=== PATIENT | female | born 1955 | race Caucasian/White ===

== ENCOUNTER 2017-08-20 13:20 | Inpatient (IN) | payer BC ==
[~2017-08-20] VITALS: Ht 182.9 cm; Wt 103.8 kg
[2017-08-20 13:38] VITALS: BP 119/71
--- OUTSIDE RECORDS SUMMARY | 2017-08-20 13:44 | XMS REPORT ---
Author Author ERICA HOWE [facility] eClinicalWorks Address Unknown Phone Unavailable Care Team Providers Care Chainstitch Felled Seam Operator Name Role Phone ERICA HOWE Unavailable Allergies No Known Allergies Problems Problem Type Condition Code Onset Dates Condition Status Problem Unspecified thrombocytopenia 287.5 Active Problem Essential hypertension, benign 401.1 Active Problem Screening for thyroid disorder V77.0 Active Problem Acute pharyngitis 462 Active Problem Need for prophylactic vaccination and inoculation, Influenza V04.81 Active Medications No Known Medications Results No Known Results Summary Purpose eClinicalWorks Submission
--- OUTSIDE RECORDS SUMMARY | 2017-08-20 13:44 | XMS REPORT ---
Author Author NORMA NUNEZ [facility] Address [address] [place] [address] Care Team Providers Care Project Manager Retail Name Role Phone NORMA NUNEZ Unavailable PROBLEMS Type Condition ICD9-CM Code [id number] Code Onset Dates Condition Status SNOMED Code Problem Screening for thyroid disorder V77.0 Active 820639524 Problem Cervicalgia M54.2 Active 93485774 Problem Essential hypertension I10 Active 22707187 Problem Acute pharyngitis 462 Active 061311581 Problem Need for prophylactic vaccination and inoculation, Influenza V04.81 Active 527321251 Problem Unspecified thrombocytopenia 287.5 Active 457729253 Problem Essential hypertension, benign 401.1 Active 2124912 ALLERGIES No Information SOCIAL HISTORY Never Assessed PLAN OF CARE VITAL SIGNS MEDICATIONS Medication Instructions Dosage Frequency Start Date End Date Duration Status Benicar HCT 40-25 MG Orally Once a day, must come to appt for further refills. 1 tablet 0 days Active RESULTS No Results PROCEDURES No Known procedures IMMUNIZATIONS No Known Immunizations MEDICAL (GENERAL) HISTORY Type Description Date Medical History Hypertension Medical History Chronic nerve pain Medical History chronic pain--back Surgical History section 1988 Surgical History replaced to disk in neck 2014 Surgical History left knee replacement 11/2015
--- OUTSIDE RECORDS SUMMARY | 2017-08-20 13:44 | XMS REPORT ---
Author Author NORMA NUNEZ Organization eClinicalWorks Address Unknown Phone Unavailable Care Team Providers Care Auto Refinisher Name Role Phone NORMA NUNEZ CP Unavailable Allergies, Adverse Reactions, Alerts Substance Reaction Event Type Prednisone felt weak and achy Drug Allergy Hydrocodone-Acetaminophen nausea Drug Allergy Codeine nausea Drug Allergy Problems Problem Type Condition Code Onset Dates Condition Status Assessment Encounter for immunization Z23 Active Problem Screening for thyroid disorder V77.0 Active Problem Unspecified thrombocytopenia 287.5 Active Problem Essential hypertension I10 Active Problem Need for prophylactic vaccination and inoculation, Influenza V04.81 Active Assessment Essential hypertension I10 Active Problem Essential hypertension, benign 401.1 Active Problem Acute pharyngitis 462 Active Medications Medication Code System Code Instructions Start Date End Date Status Dosage Ultram [facility] [address]-57 50 MG Orally every 6 hrs PRN May 20, 2015 1 tablet as needed Benicar HCT [facility] [address]-61 40-25 MG Orally Once a day 1 tablet Gabapentin [facility] [address]-58 300 MG Orally 2 times a day November 03, 2015 1 capsule Procedures Procedure Coding System Code Date FLUARIX QUAD P-FREE 3 AND UP .50 2015 CPT-4 61504 Mar 14, 2016 SINGLE IMMUNIZATION ADMIN CPT-4 04066 Mar 14, 2016 Office Visit, Est Pt., Level 3 CPT-4 98116 Mar 14, 2016 Vital Signs Date/Time: Mar 14, 2016 Cardiac Monitoring Heart Rate 70 bpm Weight 213.0 lbs Height 72 in BMI 28.88 Index Blood Pressure Diastolic 68 mmHg Blood Pressure Systolic 128 mmHg Results No Known Results Immunizations Vaccine Administration Date FLUARIX QUAD P-FREE 3 AND UP .50 2015Mar 14, 2016 Summary Purpose eClinicalWorks Submission
--- OUTSIDE RECORDS SUMMARY | 2017-08-20 13:44 | XMS REPORT ---
Author Author ERICA HOWE Organization eClinicalWorks Address Unknown Phone Unavailable Care Team Providers Care Dye Beck Reel Operator Name Role Phone ERICA HOWE CP Unavailable Allergies No Known Allergies Problems Problem Type Condition ICD-9 Code Onset Dates Condition Status Problem Unspecified thrombocytopenia 287.5 Active Problem Essential hypertension, benign 401.1 Active Problem Screening for thyroid disorder V77.0 Active Assessment Cervical stenosis of spinal canal 723.0 Active Problem Acute pharyngitis 462 Active Problem Need for prophylactic vaccination and inoculation, Influenza V04.81 Active Medications Medication Code System Code Instructions Start Date End Date Status Dosage Oxycodone-Acetaminophen [facility] [address]-62 7.5-325 MG Orally every 6 hrs as needed for pain. MUST LAST 30 DAYS Jan 01, 2015 1 tablet as needed Results No Known Results Summary Purpose eClinicalWorks Submission
--- OUTSIDE RECORDS SUMMARY | 2017-08-20 13:44 | XMS REPORT ---
Author Author ERICA HOWE Organization eClinicalWorks Address Unknown Phone Unavailable Care Team Providers Care Jig Grinder Set Up Operator Name Role Phone ERICA HOWE Unavailable [...] Start Date End Date Status Dosage Oxycodone-Acetaminophen [facility] [address]-99 7.5-325 MG Orally every 6 hrs as needed for pain. MUST LAST 30 DAYS Jan 01, 2015 1 tablet as needed Results No Known Results Summary Purpose eClinicalWorks Submission
--- OUTSIDE RECORDS SUMMARY | 2017-08-20 13:44 | XMS REPORT ---
Author Author ERICA HOWE [facility] eClinicalWorks Address Unknown Phone Unavailable Care Team Providers Care Art Director Name Role Phone ERICA HOWE Unavailable Allergies [...] Instructions Start Date End Date Status Dosage Zofran [facility] [address]-36 4 MG Orally Once a day Dec 23, 2014 1 tablet Results No Known Results Summary Purpose eClinicalWorks Submission
--- OUTSIDE RECORDS SUMMARY | 2017-08-20 13:44 | XMS REPORT ---
Author Author NORMA NUNEZ [facility] Address [address] [place] [address] Care Team Providers Care Behavior Management Specialist Name Role Phone NUNEZNORMA Tucker Unavailable PROBLEMS Type Condition ICD9-CM Code [id number] Code Onset Dates Condition Status SNOMED Code Assessment Cervicalgia M54.2 Jan, Active 60974332 Problem Screening for thyroid disorder V77.0 Active 010037841 Problem Unspecified thrombocytopenia 287.5 Active 180068936 Problem Need for prophylactic vaccination and inoculation, Influenza V04.81 Active 224507247 Assessment Essential hypertension I10 Jan, Active 60842189 Problem Essential hypertension, benign 401.1 Active 2118955 Problem Acute pharyngitis 462 Active 884467663 ALLERGIES Substance Reaction Event Type Date Status Prednisone felt weak and achy Drug Allergy Jan, Active Hydrocodone-Acetaminophen nausea Drug Allergy Jan, Active Codeine nausea Drug Allergy Jan, Active SOCIAL HISTORY No smoking Hx information available PLAN OF CARE VITAL SIGNS Height 72 in 2016-01-31 Weight 217.0 lbs 2016-01-31 Heart Rate 72 bpm 2016-01-31 Respiratory Rate 16 2016-01-31 BMI 29.43 kg/m2 2016-01-31 Blood pressure systolic 100 mmHg 2016-01-31 Blood pressure diastolic 70 mmHg 2016-01-31 MEDICATIONS Medication Instructions Dosage Frequency Start Date End Date Duration Status Ultram 50 MG Orally every 6 hrs PRN 1 tablet as needed Apr, Active Gabapentin 300 MG Orally 2 times a day 1 capsule 12h 15 Oct, 2015 Active RESULTS No Results PROCEDURES Procedure Date Ordered Related Diagnosis Body Site Office Visit, Est Pt., Level 3 Jan 31, 2016 IMMUNIZATIONS No Known Immunizations
--- OUTSIDE RECORDS SUMMARY | 2017-08-20 13:44 | XMS REPORT ---
Author Author ERICA HOWE [facility] eClinicalWorks Address Unknown Phone Unavailable Care Team Providers Care Public Relations Professional Name Role Phone ERICA HOWE Unavailable Allergies [...] Instructions Start Date End Date Status Dosage Benicar HCT [facility] [address]-39 40-25 MG Orally Once a day 1 tablet Zofran [facility] [address]-19 4 MG Orally Once a day Dec 23, 2014 1 tablet Results No Known Results Summary Purpose eClinicalWorks Submission
--- OUTSIDE RECORDS SUMMARY | 2017-08-20 13:45 | XMS REPORT | Continuity of Care Document ---
Author Author [facility] Address Unknown Phone Unavailable Allergies Active Description Code Type Severity Reaction Onset Reported/Identified Relationship to Patient Clinical Status Yes Codeine Drug Allergy N/A N/A 11/04/2012 Yes prednisone Drug Allergy N/A N/A 11/04/2012 Medications There is no data. Problems Date Dx Coded Attending Type Code Diagnosis Diagnosed By 11/04/2012 401.1 HYPERTENSION, BENIGN ESSENTIAL 11/04/2012 401.1 HYPERTENSION, BENIGN ESSENTIAL 11/04/2012 GOODMAN DO YVETTE K 401.1 HYPERTENSION, BENIGN ESSENTIAL 11/04/2012 GOODMAN DO YVETTE K 401.1 HYPERTENSION, BENIGN ESSENTIAL 11/04/2012 GOODMAN DO YVETTE K 401.1 HYPERTENSION, BENIGN ESSENTIAL 11/04/2012 GOODMAN DO YVETTE K 401.1 HYPERTENSION, BENIGN ESSENTIAL 04/09/2013 GOODMAN DO, YVETTE K 462 ACUTE PHARYNGITIS 04/09/2013 GOODMAN DO, YVETTE K V04.81 FLU SHOT 04/09/2013 GOODMAN DO, YVETTE K 462 ACUTE PHARYNGITIS 04/09/2013 GOODMAN DO, YVETTE K V04.81 FLU SHOT 04/09/2013 GOODMAN DO, YVETTE K 462 ACUTE PHARYNGITIS 04/09/2013 GOODMAN DO, YVETTE K V04.81 FLU SHOT 04/09/2013 GOODMAN DO, YVETTE K 462 ACUTE PHARYNGITIS 04/09/2013 GOODMAN DO, YVETTE K V04.81 FLU SHOT 11/19/2013 GOODMAN DO, YVETTE K V77.0 SCREENING FOR THYROID DISORDERS 11/19/2013 GOODMAN DO, YVETTE K V77.0 SCREENING FOR THYROID DISORDERS 11/19/2013 GOODMAN DO, YVETTE K V77.0 SCREENING FOR THYROID DISORDERS 12/01/2013 GOODMAN DO YVETTE K 287.5 THROMBOCYTOPENIA UNSPECIFIED 12/01/2013 GOODMAN DO, YVETTE K 287.5 THROMBOCYTOPENIA UNSPECIFIED 11/19/2015 DARCY MORAN DO, Ot D69.3 IMMUNE THROMBOCYTOPENIC PURPURA 11/24/2015 NEFTALI GLOVER MD Ot I10 ESSENTIAL (PRIMARY) HYPERTENSION 12/10/2015 DARCY MORAN DO Ot D69.3 IMMUNE THROMBOCYTOPENIC PURPURA 12/17/2015 NEFTALI GLOVER MD Ot I10 ESSENTIAL (PRIMARY) HYPERTENSION Procedures Code [place] [address] ROUTINE VENIPUNCTURE 11/19/2013 68302 CMP 11/19/2013 08251 LIPID PANEL 11/19/2013 87060 TSH 11/19/2013 33932 CBC 11/19/2013 03755 A1C (IN-HOUSE) 12/01/2013 Results There is no data. Encounters ACCT No. Visit Date/Time Discharge Status Pt. Type Provider Facility Loc./Unit Complaint [id number] 08/14/2014 15:58:00 08/14/2014 23:59:59 CLS Outpatient YVETTE GOODMAN DO [id number] 12/01/2013 10:07:00 12/01/2013 23:59:59 CLS Outpatient YVETTE GOODMAN DO [id number] 11/19/2013 08:16:00 11/19/2013 23:59:59 CLS Outpatient YVETTE GOODMAN DO [id number] 04/09/2013 15:49:00 04/09/2013 23:59:59 CLS Outpatient YVETTE GOODMAN DO [id number] 01/10/2013 09:07:00 Document Registration [id number] 11/04/2012 14:31:00 Document Registration [id number] 11/23/2015 12:09:00 11/23/2015 23:59:59 CLS Outpatient NEFTALI GLOVER MD [facility] [id number] 11/18/2015 16:35:00 11/18/2015 23:59:59 CLS Outpatient DARCY MORAN DO [facility] [id number] 05/07/2017 15:00:00 05/07/2017 23:59:59 CLS Outpatient ERICA HOWE APRN [facility]
--- OUTSIDE RECORDS SUMMARY | 2017-08-20 13:45 | XMS REPORT ---
Author Author ERICA HOWE Organization eClinicalWorks Address Unknown Phone Unavailable Care Team Providers Care Inpatient Pharmacist Name Role Phone ERICA HOWE Unavailable Allergies [...] Start Date End Date Status Dosage Zofran [facility] [address]-54 4 MG Orally Once a day Dec 23, 2014 1 tablet Results No Known Results Summary Purpose eClinicalWorks Submission
--- OUTSIDE RECORDS SUMMARY | 2017-08-20 13:45 | XMS REPORT ---
Author Author ERICA HOWE Organization eClinicalWorks Address Unknown Phone Unavailable Care Team Providers Care Ell Tutor Name Role Phone ERICA HOWE Unavailable Allergies [...] Start Date End Date Status Dosage Zofran [facility] [address]-43 4 MG Orally Once a day Jun 25, 2015 1 tablet Results No Known Results Summary Purpose eClinicalWorks Submission
--- OUTSIDE RECORDS SUMMARY | 2017-08-20 13:45 | XMS REPORT ---
Author Author NORMA NUNEZ Organization eClinicalWorks Address Unknown Phone Unavailable Care Team Providers Care Dean Of Admissions Name Role Phone NORMA NUNEZ CP Unavailable Allergies No Known Allergies Problems [...]
--- OUTSIDE RECORDS SUMMARY | 2017-08-20 13:45 | XMS REPORT ---
Author Author NORMA NUNEZ [facility] Address [address] [place] [address] Care Team Providers Care Programmer Or Analyst Name Role Phone NUNEZ, NORMA Unavailable PROBLEMS Type Condition ICD9-CM Code LZN26-EU Code Onset Dates Condition Status SNOMED Code Problem Need for prophylactic vaccination and inoculation, Influenza V04.81 Active 651752680 Problem Cervicalgia M54.2 Active 42760668 Problem Essential hypertension I10 Active 85530289 Problem Essential hypertension, benign 401.1 Active 9266440 Problem Acute pharyngitis 462 Active 462771764 Problem Screening for thyroid disorder V77.0 Active 003744526 Problem Unspecified thrombocytopenia 287.5 Active 045454751 ALLERGIES Substance Reaction Event Type Date Status Prednisone felt weak and achy Drug Allergy Apr, Active Hydrocodone-Acetaminophen nausea Drug Allergy Apr, Active Codeine nausea Drug Allergy Apr, Active SOCIAL HISTORY No smoking Hx information available PLAN OF CARE Activity Details Follow Up 3 Months Reason:htn VITAL SIGNS Height 72 in 2016-05-16 Weight 212.4 lbs 2016-05-16 Temperature 96.8 degrees Fahrenheit 2016-05-16 Heart Rate 80 bpm 2016-05-16 Respiratory Rate 18 2016-05-16 BMI 28.80 kg/m2 2016-05-16 Blood pressure systolic 110 mmHg 2016-05-16 Blood pressure diastolic 60 mmHg 2016-05-16 MEDICATIONS Medication Instructions Dosage Frequency Start Date End Date Duration Status Ultram 50 MG Orally every 6 hrs PRN 1 tablet as needed Apr, Active Gabapentin 300 MG Orally Once a day 1 capsule 24h 15 Oct, 2015 Active Benicar HCT 40-25 MG Orally Once a day 1 tablet 24h Active RESULTS No Results PROCEDURES Procedure Date Ordered Related Diagnosis Body Site Office Visit, Est Pt., Level 3 May 16, 2016 IMMUNIZATIONS No Known Immunizations
--- OUTSIDE RECORDS SUMMARY | 2017-08-20 13:45 | XMS REPORT ---
Author Author ERICA HOWE Organization eClinicalWorks Address Unknown Phone Unavailable Care Team Providers Care Assistant Food Service Manager Name Role Phone ERICA HOWE CP Unavailable Allergies, Adverse Reactions, Alerts Substance Reaction Event Type Prednisone felt weak and achy Drug Allergy Hydrocodone-Acetaminophen nausea Drug Allergy Codeine nausea Drug Allergy Problems Problem Type Condition Code Onset Dates Condition Status Problem Unspecified thrombocytopenia 287.5 Active Problem Essential hypertension, benign 401.1 Active Problem Screening for thyroid disorder V77.0 Active Assessment Fall, initial encounter W19.XXXA Active Assessment Midline thoracic back pain M54.6 Active Problem Acute pharyngitis 462 Active Problem Need for prophylactic vaccination and inoculation, Influenza V04.81 Active Medications Medication Code System Code Instructions Start Date End Date Status Dosage Diazepam [facility] [address]-92 5 MG Orally Twice a day 1 tablet as needed Benicar HCT [facility] [address]-44 40-25 MG Orally Once a day 1 tablet Amitriptyline HCl [facility] [address]-94 50 MG Orally Once a day May 20, 2015 1 tablet (1/2 tab x7 days then 1 full tab daily) Ultram [facility] [address]-70 50 MG Orally every 6 hrs PRN May 20, 2015 1 tablet as needed Procedures Procedure Coding System Code Date Office Visit, Est Pt., Level 3 CPT-4 78227 May 20, 2015 Vital Signs Date/Time: May 20, 2015 Temperature 97.6 F Weight 247.8 lbs Height 72 in BMI 33.60 Index Blood Pressure Diastolic 70 mmHg Blood Pressure Systolic 124 mmHg Cardiac Monitoring Heart Rate 80 bpm Results No Known Results Summary Purpose eClinicalWorks Submission
--- OUTSIDE RECORDS SUMMARY | 2017-08-20 13:45 | XMS REPORT ---
Author Author NORMA NUNEZ [facility] Address [address] [place] [address] Care Team Providers Care Import Coordination And Production Head Name Role Phone NORMA NUNEZ Unavailable PROBLEMS Type Condition ICD9-CM Code ESG24-SI Code Onset Dates Condition Status SNOMED Code Problem Screening for thyroid disorder V77.0 Active 827406222 Problem Cervicalgia M54.2 Active 38517331 Problem Essential hypertension I10 Active 72589097 Problem Acute pharyngitis 462 Active 895893623 Problem Need for prophylactic vaccination and inoculation, Influenza V04.81 Active 355117275 Problem Unspecified thrombocytopenia 287.5 Active 208295079 Problem Essential hypertension, benign 401.1 Active 2002435 ALLERGIES Substance Reaction Event Type Date Status Prednisone felt weak and achy Drug Allergy Oct, Active Hydrocodone-Acetaminophen nausea Drug Allergy Oct, Active Codeine nausea Drug Allergy Oct, Active ENCOUNTERS Encounter Location Date Diagnosis [address] [id number] Apr, Essential hypertension I10 and Encounter for immunization Z23 [place] [id number] [place] [address] [id number] Oct, Essential hypertension I10 ; Screening for thyroid disorder Z13.29 ; Screening for lipid disorders Z13.220 and Screening for heart disease Z13.6 [facility] [id number] [place] [address] [id number] September, [facility] [id number] [place] [address] [id number] May, Essential hypertension I10 [address] [id number] Apr, Essential hypertension I10 and Cervicalgia M54.2 [place] [id number] [place] [address] [id number] Feb, Essential hypertension I10 and Encounter for immunization Z23 [facility] [id number] [phone] Feb, [facility] [id number] [place] [address] [id number] Jan, Essential hypertension I10 and Cervicalgia M54.2 [facility] [id number] [place] [address] [id number] Oct, [facility] [id number] [place] [address] [id number] Oct, [facility] [id number] [place] [address] [id number] Aug, [facility] [id number] [place] [address] [id number] Jul, Essential (primary) hypertension I10 [facility] [id number] [place] [address] [id number] Jun, [facility] [id number] [place] [address] [id number] Apr, Fall, initial encounter W19.XXXA and Midline thoracic back pain M54.6 [facility] [id number] [place] [address] [phone] Apr, [facility] [id number] [place] [address] [id number] Mar, [facility] [id number] [place] [address] [id number] Mar, [facility] [address] [id number] [phone] Jan, [facility] [id number] [place] [address] [phone] Jan, Muscle spasm of back 724.8 [facility] [id number] [place] [address] [id number] Jan, [facility] [id number] [place] [address] [id number] Jan, Cervical stenosis of spinal canal 723.0 [facility] [id number] [place] [address] [id number] Dec, Cervical stenosis of spinal canal 723.0 [place] [id number] [phone] Dec, Cervical stenosis of spinal canal 723.0 [facility] [id number] [place] [address] [phone] Dec, [facility] [id number] [place] [address] [id number] Dec, Cervical stenosis of spinal canal 723.0 [facility] [id number] [place] [address] [id number] Dec, [facility] [id number] [place] [address] [id number] Nov, Bulging discs 722.10 and Edema 782.3 [facility] [id number] [place] [phone] Nov, [facility] [id number] [place] [address] [phone] Oct, Bilateral arm numbness and tingling while sleeping 782.0 [facility] [id number] [phone] September, [facility] [id number] [place] [phone] September, [facility] [id number] [place] [address] [id number] September, Essential hypertension, benign 401.1 and Radiculopathy affecting upper extremity 723.4 [facility] [id number] [place] [phone] Aug, [facility] [id number] [place] [phone] Aug, [facility] [id number] [place] [address] [id number] Jul, [facility] [id number] [place] [phone] Jul, [facility] [id number] [phone] Nov, [facility] [address] [id number], [place] [address] Nov, [facility] [address] [facility] [id number] [phone] Nov, [facility] [address] [facility] [id number], [place] [address] Nov, [facility] [address] [facility] [id number], [place] [address] Nov, [facility] [address] [facility] [id number], [place] [address] Nov, [facility] [address] [facility] [id number] [phone] Nov, [facility] [address] [id number] [phone] Mar, [facility] [address], [place] [address] Mar, [facility] [address] [id number] [phone] Dec, [facility] [address] [id number] [phone] Oct, IMMUNIZATIONS No Known Immunizations SOCIAL HISTORY Never Assessed REASON FOR VISIT Blood Pressure f/u [facility] PLAN OF CARE Activity Details Follow Up 6 Months Reason:htn VITAL SIGNS Height 72 in 2016-10-30 Weight 220 lbs 2016-10-30 Temperature 97.8 degrees Fahrenheit 2016-10-30 Heart Rate 78 bpm 2016-10-30 Respiratory Rate 16 2016-10-30 BMI 29.83 kg/m2 2016-10-30 Blood pressure systolic 128 mmHg 2016-10-30 Blood pressure diastolic 72 mmHg 2016-10-30 MEDICATIONS Medication Instructions Dosage Frequency Start Date End Date Duration Status Benicar HCT 40-25 MG Orally Once a day, must come to appt for further refills. 1 tablet 0 days Active RESULTS No Results PROCEDURES No Known procedures INSTRUCTIONS MEDICATIONS ADMINISTERED No Known Medications MEDICAL (GENERAL) HISTORY Type Description Date Medical History Hypertension Medical History Chronic nerve pain Medical History chronic pain--back Surgical History section 1988 Surgical History replaced to disk in neck 2014 Surgical History left knee replacement 11/2015
--- OUTSIDE RECORDS SUMMARY | 2017-08-20 13:45 | XMS REPORT ---
Author Author NORMA NUNEZ [facility] Address [address] [place] [address] Care Team Providers Care Earth Science Technical Officer Name Role Phone NORMA NUNEZ Unavailable PROBLEMS Type Condition ICD9-CM Code [id number]-SC Code Onset Dates Condition Status SNOMED Code Problem Need for prophylactic vaccination and inoculation, Influenza V04.81 Active 030910204 Problem Cervicalgia M54.2 Active 12441100 Problem Essential hypertension I10 Active 67529276 Problem Essential hypertension, benign 401.1 Active 4083454 Problem Acute pharyngitis 462 Active 584167866 Problem Screening for thyroid disorder V77.0 Active 159176824 Problem Unspecified thrombocytopenia 287.5 Active [id number] ALLERGIES No Known Allergies SOCIAL HISTORY No smoking Hx information available PLAN OF CARE VITAL SIGNS MEDICATIONS Medication Instructions Dosage Frequency Start Date End Date Duration Status Losartan Potassium-HCTZ 100-25 MG Orally Once a day 1 tablet 24h May, 0 days Active RESULTS No Results PROCEDURES No Known procedures IMMUNIZATIONS No Known Immunizations
--- OUTSIDE RECORDS SUMMARY | 2017-08-20 13:45 | XMS REPORT ---
Author Author ERICA HOWE Organization [employer] Address Unknown Phone Unavailable Care Team Providers Care Metrologist Name Role Phone ERICA HOWE Unavailable Allergies [...] Date End Date Status Dosage Benicar HCT [facility] [id number] 40-25 MG Orally Once a day 1 tablet Results No Known Results Summary Purpose [employer] Submission
[2017-08-20] MEDS ORDERED: IBUP-30 PO (14:32)
[2017-08-20] MEDS ORDERED: OLME1TAB24 PO (14:32)
--- NOTE | 2017-08-20 15:29 | History & Physical-Hospitalist ---
History of Present Illness HPI/Chief Complaint Pt is a 61yoCF with a PMH of HTN and tobacco abuse who presented to the ER with CC of SOB and cough. She states her symptoms started on 07/23/17 when she was seen at Urgent Care and diagnosed with pneumonia. She was treated with Levaquin and felt better but shortly after stopping them started to feel worse again. She seen again at that Urgent care and given steroids and Azithromycin and felt better for almost two weeks and then started to get sick again. She states it started with a runny nose and then she started coughing and getting SOB. She complains of low chest/upper abdomen left sided chest pain with her cough. She denies any fevers or chills. She was found to be hypoxic with ambulation on presentation. Source: patient Exam Limitations: no limitations Date Seen 08/20/17 Time Seen by Provider: 15:05 Attending Physician Sophia Mcfarlane MD PCP No,Local Physician Referring Physician Date of Admission Aug 20, 2017 at 1:40 pm Home Medications & Allergies Home Medications Reviewed patient Home Medication Reconciliation performed by pharmacy medication reconciliations health record technician and/or nursing. Patients Allergies have been reviewed. Allergies Allergies Coded Allergies codeine (Verified Allergy, Unknown, 08/20/17) "I get real dizzy and pass out" Past Cbzovfb-Oareds-Rougsc Hx Past Med/Social Hx: Reviewed and Corrections made Patient Social History Marrital Status: Alcohol Use: Denies Use Recreational Drug Use: No Smoking Status: Current Everyday Smoker Cigaretts per day: 15 Type Used: Cigarettes Physical Abuse Screen: No Sexual Abuse: No Recent Foreign Travel: No Contact w/other who traveled: No Recent Hopitalizations: No Recent Infectious Disease Expo: No Seasonal Allergies Seasonal Allergies: No Past Medical History Surgeries: Orthopedic Respiratory: Pneumonia Currently Using CPAP: No Currently Using BIPAP: No Cardiac: Hypertension Musculoskeletal: Arthritis History of Blood Disorders: Yes (thrombocytopenia) Adverse Reaction to Blood Henry: No Family History Reviewed Nursing Family Hx No Pertinent Family Hx Review of Systems Constitutional: No chills, No fever EENTM: nose congestion Respiratory: see HPI, cough, short of breath Cardiovascular: see HPI, No edema, No palpitations Gastrointestinal: No abdominal pain, No constipation, No diarrhea, No nausea, No vomiting Genitourinary: No dysuria, No frequency Musculoskeletal: No joint pain, No muscle pain Skin: No lesions, No rash Psychiatric/Neurological: Denies Headache, Denies Numbness, Denies Tingling All Other Systems Reviewed Negative Unless Noted: Yes (Negative excepted noted.) Physical Exam Physical Exam Vital Signs Vital Signs - First Documented 08/20/17 14:00 O2 Delivery Room Air Capillary Refill : General Appearance: No Apparent Distress, WD/WN HEENT: PERRL/EOMI, Moist Mucous Membranes Neck: Non Tender, Supple Respiratory: No Accessory Muscle Use, No Respiratory Distress, Decreased Breath Sounds (left side) Cardiovascular: Regular Rate, Rhythm, No Murmur Gastrointestinal: Normal Bowel Sounds, Non Tender, Soft Extremity: Normal Capillary Refill, No Calf Tenderness, No Pedal Edema Neurologic/Psychiatric: Alert, Oriented x3, Normal Mood/Affect Skin: Normal Color, Warm/Dry Results Results/Procedures Labs Laboratory Tests 08/20/17 15:50 Patient resulted labs reviewed. Imaging: Reviewed Imaging Films, Reviewed Imaging Report Assessment/Plan Admission Diagnosis CAP Admission Status: Inpatient Order (span 2 midnights) Reason for Inpatient Admission: Failled outpatient antibiotics Diagnosis/Problems Diagnosis/Problems (1) CAP (community acquired pneumonia) Status: Acute Assessment & Plan: With pleural effusion Will continue Rocephin and Azithro Could consider cefepime if no improvement Will get sepsis labs and blood cultures but does not meet sepsis criteria currently MAT protocol Pulm consulted for recurrent pneumonias Qualifiers: Laterality: left (2) Essential (primary) hypertension Status: Chronic Assessment & Plan: Resume home meds (3) Tobacco abuse Status: Chronic Assessment & Plan: Recommended cessation (4) Thrombocytopenia Assessment & Plan: Chronic, will trend (5) Prophylactic measure Assessment & Plan: SCDs only due to thrombocytopenia HH diet Saline lock Clinical Quality Measures DVT/VTE Risk/Contraindication: Risk Factor Score Per Nursin RFS Level Per Nursing on Admit: 3=High SOPHIA MCFARLANE MD Aug 20, 2017 3:29 pm
[2017-08-20] MEDS ORDERED: MELATONIN 3 MG TABLET PO PRN (15:30)
[2017-08-20] MEDS ORDERED: MILK OF MAGNESIA 400 MG/5 ML 30 ML UDC PO PRN (15:30)
[2017-08-20] MEDS ORDERED: cefTRIAXone INJECTION 1,000 MG in NS (IVPB) 100 ML IV SCH (15:30)
[2017-08-20] MEDS ORDERED: ANTACID SUSP 30 ML UDC (MYLANTA) PO PRN (15:30)
[2017-08-20] MEDS ORDERED: AZITHROMYCIN INJECTION 500 MG in NS (IVPB) 250 ML IV NR (15:38)
--- NOTE | 2017-08-20 15:53 | Diagnostic Imaging Report ---
PATIENT HISTORY: Pneumonia. TECHNIQUE: Single frontal view of the chest. COMPARISON: None. FINDINGS: There is a small to moderate left pleural effusion with left basilar airspace opacities. There is mild interstitial opacity throughout the lungs bilaterally. The cardiac silhouette is partially obscured, but appears mildly large. There is aortic atherosclerosis. Round densities in the right lung, and left lung apex are thought to represent calcified granulomas. No acute osseous abnormality is seen. IMPRESSION: 1. Small to moderate left pleural effusion. 2. Left basilar airspace opacities and diffuse bilateral interstitial opacities. This may be due to edema or infection. Dictated by: Dictated on workstation # [id number]
[2017-08-20 16:14] LABS: BASOPHILS % (AUTO) 0 % (0-10); EOSINOPHILS # (AUTO) 0.2 10^3/uL (0.0-0.3); EOSINOPHILS % (AUTO) 3 % (0-10); HEMATOCRIT 37 % (35-52); HEMOGLOBIN 12.7 G/DL (11.5-16.0); LYMPHOCYTES # (AUTO) 1.2 X 10^3 (1.0-4.0); LYMPHOCYTES % (AUTO) 19 % (12-44); MEAN CORPUSCULAR HEMOGLOBIN 30 PG (25-34); MEAN CORPUSCULAR HGB CONC 34 G/DL (32-36); MEAN CORPUSCULAR VOLUME 88 FL (80-99); MEAN PLATELET VOLUME 12.8 FL (7.4-10.4); MONOCYTES # (AUTO) 0.8 X 10^3 (0.0-1.0); MONOCYTES % (AUTO) 13 % (0-12); NEUTROPHILS % (AUTO) 65 % (42-75); PLATELET COUNT 88 10^3/uL (130-400); RED BLOOD COUNT 4.23 10^6/uL (4.35-5.85); RED CELL DISTRIBUTION WIDTH 14.9 % (10.0-14.5); WHITE BLOOD COUNT 6.2 10^3/uL (4.3-11.0)
[2017-08-20 16:20] VITALS: BP 106/56
[2017-08-20 16:39] LABS: ALANINE AMINOTRANSFERASE 9 U/L (0-55); ALBUMIN 3.6 GM/DL (3.2-4.5); ALKALINE PHOSPHATASE 80 U/L (40-136); BUN/CREATININE RATIO 14; CALCIUM 9.1 MG/DL (8.5-10.1); CARBON DIOXIDE 25 MMOL/L (21-32); CHLORIDE 103 MMOL/L (98-107); GFR ESTIMATED > 60; GLUCOSE 86 MG/DL (70-105); POTASSIUM 3.6 MMOL/L (3.6-5.0); SODIUM 135 MMOL/L (135-145); TOTAL PROTEIN 7.1 GM/DL (6.4-8.2)
[2017-08-20] MEDS: fentaNYL INJECTION 100 MCG/2 ML AMP IVP PRN ×2 (16:56→21:10)
[2017-08-20] MEDS: BENZONATATE 100 MG (TESSALON) CAPSULE PO PRN (16:57)
[2017-08-20] MEDS: RT-ALBUTEROL/IPRATROPIUM 3 ML (DUONEB) VIAL INH SCH (19:01)
[2017-08-20 20:00] VITALS: BP 108/58
[2017-08-21] VITALS: BP 111/58
[2017-08-21] MEDS: RT-ALBUTEROL/IPRATROPIUM 3 ML (DUONEB) VIAL INH SCH ×4 (02:32→19:00)
[2017-08-21] MEDS: fentaNYL INJECTION 100 MCG/2 ML AMP IVP PRN ×2 (03:12→17:45)
[2017-08-21 04:00] VITALS: BP 99/53
[2017-08-21 06:39] LABS: BASOPHILS % (AUTO) 0 % (0-10); EOSINOPHILS # (AUTO) 0.2 10^3/uL (0.0-0.3); EOSINOPHILS % (AUTO) 3 % (0-10); HEMATOCRIT 34 % (35-52); HEMOGLOBIN 11.4 G/DL (11.5-16.0); LYMPHOCYTES # (AUTO) 1.4 X 10^3 (1.0-4.0); LYMPHOCYTES % (AUTO) 25 % (12-44); MEAN CORPUSCULAR HEMOGLOBIN 30 PG (25-34); MEAN CORPUSCULAR HGB CONC 34 G/DL (32-36); MEAN CORPUSCULAR VOLUME 89 FL (80-99); MEAN PLATELET VOLUME 13.4 FL (7.4-10.4); MONOCYTES # (AUTO) 0.7 X 10^3 (0.0-1.0); MONOCYTES % (AUTO) 13 % (0-12); NEUTROPHILS # (AUTO) 3.3 X 10^3 (1.8-7.8); NEUTROPHILS % (AUTO) 59 % (42-75); PLATELET COUNT 84 10^3/uL (130-400); RED BLOOD COUNT 3.79 10^6/uL (4.35-5.85); WHITE BLOOD COUNT 5.6 10^3/uL (4.3-11.0)
[2017-08-21 06:55] LABS: BUN/CREATININE RATIO 17; CALCIUM 8.7 MG/DL (8.5-10.1); CARBON DIOXIDE 23 MMOL/L (21-32); CHLORIDE 103 MMOL/L (98-107); CREATININE SERUM 0.71 MG/DL (0.60-1.30); GFR ESTIMATED > 60; GLUCOSE 88 MG/DL (70-105); POTASSIUM 3.5 MMOL/L (3.6-5.0); SODIUM 136 MMOL/L (135-145)
[2017-08-21 08:00] VITALS: BP 86/55
--- NOTE | 2017-08-21 08:06 | Pulmonary Consultation ---
History of Present Illness History of Present Illness Date of Consultation 08/21/17 08:00 Time Seen by Provider: 08:00 Date of Admission History of Present Illness 61yo with hx of of tobacco use presented to ED secondary to worsening SOB and cough that started on 07/23 and was seen at urgent care. She was dx with pneumonia and sent home with LEvaquin however did not complete coarse. She went back to urgent care and was given steroids and Azithromycin. She did improve initially however started getting sick again after 2 wks.No Fever, chills. She was found to be hypoxic with ambulation upon presentation. I am consulted for pulmonary management. Allergies and Home Medications Allergies Coded Allergies: codeine (Verified Allergy, Unknown, 08/20/17) "I get real dizzy and pass out" Home Medications Ibuprofen 200 Mg Tablet, 600 MG PO Q8H PRN for PAIN-MILD, (Reported) Olmesartan/Hydrochlorothiazide 1 Each Tablet, 1 TAB PO DAILY, (Reported) Past Andkslc-Wriunl-Kvznzx Hx Patient Social History Alcohol Use: Denies Use Recreational Drug Use: No Smoking Status: Current Everyday Smoker Type Used: Cigarettes Recent Foreign Travel: No Contact w/Someone Who Travel: No Recent Infectious Disease Expo: No Recent Hopitalizations: No Seasonal Allergies Seasonal Allergies: No Surgeries History of Surgeries: Yes Surgeries: Orthopedic Respiratory History of Respiratory Disorde: Yes Respiratory Disorders: Pneumonia Currently Using CPAP: No Currently Using BIPAP: No Cardiovascular History of Cardiac Disorders: Yes Cardiac Disorders: Hypertension Neurological History of Neurological Disord: No Genitourinary History of Genitourinary Disor: No Gastrointestinal History of Gastrointestinal Di: Yes Musculoskeletal History of Musculoskeletal Dis: Yes Musculoskeletal Disorders: Arthritis Endocrine History of Endocrine Disorders: No HEENT History of HEENT Disorders: No Cancer History of Cancer: No Psychosocial History of Psychiatric Problem: No Integumentary History of Skin or Integumenta: No Blood Transfusions History of Blood Disorders: Yes (thrombocytopenia) Adverse Reaction to a Blood Tr: No Family Medical History Significant Family History: No Pertinent Family Hx Review of Systems Time Seen by Provider: 08:33 Exam Exam Vital Signs Date Time Temp Pulse Resp B/P (MAP) Pulse Ox O2 Delivery O2 Flow Rate FiO2 08/21/17 07:38 91 Nasal Cannula 2.00 08/21/17 04:00 99.9 93 20 99/53 (68) 95 Nasal Cannula 2.00 08/21/17 02:33 94 Nasal Cannula 2.00 08/21/17 00:00 100.3 98 18 111/58 (75) 95 Nasal Cannula 2.00 08/20/17 21:00 Nasal Cannula 2.00 08/20/17 20:00 100.3 97 22 108/58 (75) 95 Nasal Cannula 2.00 08/20/17 19:03 95 Nasal Cannula 2.00 08/20/17 17:22 Nasal Cannula 2.00 08/20/17 16:20 100.6 108 22 106/56 (73) 91 Room Air 08/20/17 14:00 Room Air 08/20/17 13:38 99.3 108 22 119/71 (87) 94 Room Air I & O 08/21/17 07:00 Intake Total 850 ml Output Total 800 ml Balance 50 ml General Appearance: WD/WN, Anxious, Mild Distress HEENT: PERRL/EOMI, Moist Mucous Membranes Neck: Non Tender, Supple Respiratory: No Accessory Muscle Use, No Respiratory Distress, Decreased Breath Sounds (left side), Wheezing Cardiovascular: Regular Rate, Rhythm, No Murmur Extremity: Normal Capillary Refill, No Calf Tenderness, No Pedal Edema Neurologic/Psychiatric: Alert, Oriented x3, Normal Mood/Affect Skin: Normal Color, Warm/Dry Results Lab Laboratory Tests 08/20/17 15:50 08/21/17 05:54 Assessment/Plan Assessment/Plan Pneumonia with left pleural effusion r/o empyema -Check CT of chest with contrast -Possible thoracentesis today vs transfer for thoracic surgery 255 ERNIE HOLMAN DO Aug 21, 2017 08:06
[2017-08-21] MEDS ORDERED: PHARMACY TO DOSE IV SCH (08:15)
[2017-08-21] MEDS ORDERED: PIPERACILLIN SODIUM/TAZOBACTAM 4.5 GM in NS (IVPB) 100 ML IV NR (08:30)
[2017-08-21] MEDS: HYDROCHLOROTHIAZIDE 25 MG (HCTZ) TAB PO SCH (08:44)
[2017-08-21] MEDS: OLMESARTAN 20 MG (BENICAR) TABLET PO SCH (08:44)
[2017-08-21] MEDS ORDERED: AZITHROMYCIN 250 MG TAB (ZITHROMAX) PO SCH (09:00)
[2017-08-21] MEDS ORDERED: VANCOMYCIN INJECTION 2,250 MG in NS IV 500 ML 500 ML IV NR (09:00)
--- NOTE | 2017-08-21 11:20 | Progress Note-Hospitalist ---
Subjective HPI/CC On Admission Date Seen by Provider: Aug 21, 2017 Time Seen by Provider: 11:15 Pt is a 61yoCF with a PMH of HTN and tobacco abuse who presented to the ER with CC of SOB and cough and admitted for recurrent pneumonia. Subjective/Events-last exam She reports feeling okay today. Still having cough and pain but less frequent and less severe pain. Discussed with Dr Hua this AM and plan to obtain CT for evaluation of effusion. Focused Exam Evaluation Lactate Level Laboratory Tests 08/20/17 15:50: Lactic Acid Level 0.88 Objective Exam Vital Signs Vital Signs Date Time Temp Pulse Resp B/P (MAP) Pulse Ox O2 Delivery O2 Flow Rate FiO2 08/20/17 13:38 99.3 108 22 119/71 (87) 94 Room Air 08/20/17 17:22 2.00 Capillary Refill : General Appearance: No Apparent Distress Respiratory: No Accessory Muscle Use, No Respiratory Distress, Decreased Breath Sounds (left side) Cardiovascular: Regular Rate, Rhythm, No Murmur Gastrointestinal: Normal Bowel Sounds, Non Tender, Soft Extremity: Non Tender, No Calf Tenderness, No Pedal Edema Neurologic/Psychiatric: Alert, Oriented x3, Normal Mood/Affect Results/Procedures Lab Laboratory Tests 08/20/17 15:50 08/21/17 05:54 Patient resulted labs reviewed. Imaging: Reviewed Imaging Films, Reviewed Imaging Report Assessment/Plan Assessment and Plan Assess & Plan/Chief Complaint CAP with Pleural effusion Diagnosis/Problems Diagnosis/Problems (1) CAP (community acquired pneumonia) Status: Acute Assessment & Plan: With pleural effusion Will switch to Vanc and Zosyn BP lower this AM May be due to pain medications and poor intake Will repeat lactic acid give soft pressures and concern for developing sepsis Will start IVF as well MAT protocol Pulm consulted for recurrent pneumonias CT Scan today Qualifiers: Laterality: left (2) Essential (primary) hypertension Status: Chronic Assessment & Plan: Hold home meds for hypotension (3) Tobacco abuse Status: Chronic Assessment & Plan: Recommended cessation (4) Thrombocytopenia Assessment & Plan: Chronic, will trend (5) Prophylactic measure Assessment & Plan: SCDs only due to thrombocytopenia HH diet NS 100cc/hr Clinical Quality Measures DVT/VTE Risk/Contraindication: Risk Factor Score Per Nursin RFS Level Per Nursing on Admit: 3=High SOPHIA PIMENTEL MD Aug 21, 2017 11:20 am
[2017-08-21 12:00] VITALS: BP 120/60
[2017-08-21] MEDS: NS IV 1000 ML 1,000 ML IV SCH (13:08)
[2017-08-21] MEDS ORDERED: NS 250 ML (IVPB) BAG IV ONE (13:45)
[2017-08-21] MEDS ORDERED: CATHETER FLUSH 10 ML SYR IV PRN (13:45)
[2017-08-21] MEDS ORDERED: IOHEXOL 350 MG/ML 100 ML (OMNIPAQUE 350) VIAL IV ONE (13:45)
--- NOTE | 2017-08-21 14:08 | Diagnostic Imaging Report ---
PROCEDURE: CT chest with contrast only. TECHNIQUE: Multiple contiguous axial images were obtained through the chest after administration of intravenous contrast. INDICATION: Pneumonia and abnormal x-ray of the chest. FINDINGS: There is large amount of fluid which appears to be located within the left major fissure and within the basilar pleural space. There does appear to be possible loculation with an additional component seen in the medial left upper hemithorax adjacent to the mediastinum. There is associated dependent atelectasis and collapse of the left lower lobe. Trace amount of right pleural fluid is seen. Right upper lobe calcified granuloma is also noted. There is no evidence of pathologically enlarged adenopathy. IMPRESSION: Large amount of left pleural fluid which may be somewhat loculated given the morphology and medial collection adjacent to the mediastinum. Clinical correlation would be useful. Dictated by: Dictated on workstation # [id number]
[2017-08-21] MEDS: PIPERACILLIN SODIUM/TAZOBACTAM 4.5 GM in D5W 100 ML IVPB 100 ML IV SCH ×2 (14:44→22:25)
[2017-08-21] MEDS ORDERED: LIDOCAINE 1% INJ 20 ML 20 ML VIAL ONE (15:11)
--- NOTE | 2017-08-21 15:51 | Pulmonary Procedures ---
Pulmonary Procedures Date of Procedure Date of Service: Aug 21, 2017 Procedure: US guided complex Left thoracentesis Preop DX: Left pleural effusion post op DX: Same 5ml of yellow fluid obtained-- Pleural effusion is loculated per US and CT scan unable to drain fluid Complications: None After informed consent obtained US was used to localize pleural fluid. Pt has L pleural effusion. Skin was anesthetized at approximately the 10th ICS posterior axillary line. Thoracentesis needle was advanced through the 10th ICS posterior axillary line. Needle was removed and catheter left in place.Only 5 cc of dark yellow fluid was obtained. Catheter was then removed. Pt tolerated procedure well. No complications noted. ERNIE HOLMNA DO Aug 21, 2017 15:50
[2017-08-21 16:21] VITALS: BP 106/56
--- NOTE | 2017-08-21 16:36 | Diagnostic Imaging Report ---
INDICATION: Post thoracentesis. COMPARISON: 08/20/2017. FINDINGS: There continues to be moderate pleural effusion on the left. There is no evidence of pneumothorax. Right lung remains well aerated and clear. Heart remains enlarged. IMPRESSION: No significant change is noted when compared with previous day's exam with moderate left pleural effusion again present. Dictated by: Dictated on workstation # [id number]
[2017-08-21 19:39] VITALS: BP 96/54
[2017-08-21] MEDS: VANCOMYCIN 1500 MG/NS 500 ML IVPB IV SCH ×2 (20:12)
--- NOTE | 2017-08-21 21:31 | Consultation ---
History of Present Illness History of Present Illness Patient Consulted On(dulce/time) 08/21/17 21:26 Date Seen by Provider: Aug 21, 2017 Time Seen by Provider: 17:42 History of Present Illness Consult requested by Dr. Hua for loculated pleural effusion r/o empyema needing VATS. Patient is a 61 year old female since early July has been treated for recurrent pneumonia. She has taken a couple rounds of antibiotics but has not improved. Patient was having cough and shortness of breath and was having hypoxia with ambulation. Patient not feeling well. Still with shortness of breath. Breathing is worse with activity and moving. Nothing helping much at this time. Wanting to feel better. Tobacco user. Some left sided chest/rib pain. Dr. Hua attempted thoracentesis of left chest and was unable to drain any significant amount of fluid. I reviewed patient Ct scan of chest and has large left pleural effusion likely loculated. Denies fever sweats chills. Allergies and Home Medications Allergies Coded Allergies: codeine (Verified Allergy, Unknown, 08/20/17) "I get real dizzy and pass out" Home Medications Ibuprofen 200 Mg Tablet, 600 MG PO Q8H PRN for PAIN-MILD, (Reported) Olmesartan/Hydrochlorothiazide 1 Each Tablet, 1 TAB PO DAILY, (Reported) Patient Home Medication List Home Medication List Reviewed: Yes Past Asbkpnt-Wtogxp-Agwflu Hx Patient Social History Alcohol Use: Denies Use Recreational Drug Use: No Smoking Status: Current Everyday Smoker Cigarettes Per Day: 15 Type Used: Cigarettes Recent Foreign Travel: No Contact w/Someone Who Travel: No Recent Infectious Disease Expo: No Recent Hopitalizations: No Physical Abuse Screen: No Sexual Abuse: No Seasonal Allergies Seasonal Allergies: No Surgeries History of Surgeries: Yes Surgeries: Orthopedic Respiratory History of Respiratory Disorde: Yes Respiratory Disorders: Pneumonia Cardiovascular History of Cardiac Disorders: Yes Cardiac Disorders: Hypertension Neurological History of Neurological Disord: No Genitourinary History of Genitourinary Disor: No Gastrointestinal History of Gastrointestinal Di: Yes Musculoskeletal History of Musculoskeletal Dis: Yes Musculoskeletal Disorders: Arthritis Endocrine History of Endocrine Disorders: No HEENT History of HEENT Disorders: No Cancer History of Cancer: No Psychosocial History of Psychiatric Problem: No Integumentary History of Skin or Integumenta: No Blood Transfusions History of Blood Disorders: Yes (thrombocytopenia) Adverse Reaction to a Blood Tr: No Family Medical History Significant Family History: No Pertinent Family Hx Review of Systems-General Constitutional: see HPI EENTM: no symptoms reported Respiratory: see HPI Cardiovascular: no symptoms reported Gastrointestinal: no symptoms reported Genitourinary: no symptoms reported Musculoskeletal: no symptoms reported Skin: no symptoms reported Psychiatric/Neurological: No Symptoms Reported Physical Exam-General Problems Physical Exam Vital Signs Vital Signs - First Documented 08/20/17 08/20/17 13:38 17:22 Temp 99.3 Pulse 108 Resp 22 B/P (MAP) 119/71 (87) Pulse Ox 94 O2 Delivery Room Air O2 Flow Rate 2.00 Capillary Refill : General Appearance: mild distress HEENT: PERRL/EOMI, normal ENT inspection Neck: non-tender, supple Respiratory: other (decreased breath sounds left) Cardiovascular: regular rate, rhythm Gastrointestinal: non tender, soft Rectal: deferred Back: normal inspection Neurologic/Psychiatric: nnp II-XII nml as tested, no motor/sensory deficits, alert, normal mood/affect, oriented x 3 Skin: normal color, warm/dry Lymphatic: no adenopathy Data Review Labs Laboratory Tests 08/21/17 05:54: White Blood Count 5.6, Red Blood Count 3.79L, Hemoglobin 11.4L, Hematocrit 34L, Mean Corpuscular Volume 89, Mean Corpuscular Hemoglobin 30, Mean Corpuscular Hemoglobin Concent 34, Red Cell Distribution Width 15.0H, Platelet Count 84L, Mean Platelet Volume 13.4H, Neutrophils (%) (Auto) 59, Lymphocytes (%) (Auto) 25 , Monocytes (%) (Auto) 13H, Eosinophils (%) (Auto) 3, Basophils (%) (Auto) 0, Neutrophils # (Auto) 3.3, Lymphocytes # (Auto) 1.4, Monocytes # (Auto) 0.7, Eosinophils # (Auto) 0.2, Basophils # (Auto) 0.0, Sodium Level 136, Potassium Level 3.5L, Chloride Level 103, Carbon Dioxide Level 23, Anion Gap 10, Blood Urea Nitrogen 12, Creatinine 0.71, Estimat Glomerular Filtration Rate > 60, BUN/ Creatinine Ratio 17, Glucose Level 88, Calcium Level 8.7 08/21/17 11:55: Lactic Acid Level 1.38 08/21/17 15:30: Body Fluid pH 7 Microbiology 08/20/17 Blood Culture - Preliminary, Resulted No growth Assessment/Plan Assessment/Plan Assessment/Plan 61 year old female with left pneumonia with loculatd pleural effusion r/o empyema, thrombocytopenia thoracentesis unsuccessful at draining collection patient was discussed risks and benefits of left video-assisted thorascopic surgery with decortication and pleurodesis possible open, all other indicated procedures. patient understands risks and benefits and wishes to proceed patient to be npo after midnight type and cross likely to OR tomorrow. Clinical Quality Measures DVT/VTE Risk/Contraindication: Risk Factor Score Per Nursin RFS Level Per Nursing on Admit: 3=High BEV TORRES DO Aug 21, 2017 21:31
[2017-08-22] VITALS (12 sets, daily range): BP systolic 106–127; BP diastolic 58–81
[2017-08-22] MEDS: fentaNYL INJECTION 100 MCG/2 ML AMP IVP PRN (02:03)
[2017-08-22] MEDS: NS IV 1000 ML 1,000 ML IV SCH ×3 (02:05→22:27)
[2017-08-22] MEDS: RT-ALBUTEROL/IPRATROPIUM 3 ML (DUONEB) VIAL INH SCH ×4 (02:42→21:53)
--- NOTE | 2017-08-22 05:53 | Pulmonary Progress Note ---
Subjective Time Seen by Provider: 05:49 Subjective/Events-last exam No complications noted. Focused Exam Evaluation Lactate Level Laboratory Tests 08/20/17 15:50: Lactic Acid Level 0.88 08/21/17 11:55: Lactic Acid Level 1.38 Exam Exam Vital Signs Date Time Temp Pulse Resp B/P (MAP) Pulse Ox O2 Delivery O2 Flow Rate FiO2 08/22/17 04:00 99.1 101 23 107/58 (74) 93 Nasal Cannula 2.00 08/22/17 02:43 95 Nasal Cannula 2.00 08/22/17 00:00 99.3 101 22 106/59 (75) 93 Nasal Cannula 2.00 08/21/17 21:00 Nasal Cannula 2.00 08/21/17 19:39 99.6 96 24 96/54 (68) 95 Nasal Cannula 2.00 08/21/17 19:02 94 Nasal Cannula 2.00 08/21/17 16:21 98.9 111 20 106/56 (73) 93 Room Air 08/21/17 14:50 94 Nasal Cannula 2.00 08/21/17 12:00 97.5 109 20 120/60 (80) 94 Nasal Cannula 2.00 08/21/17 08:45 92 Nasal Cannula 2.00 08/21/17 08:00 98.6 114 24 86/55 (65) 92 Nasal Cannula 2.00 08/21/17 07:38 91 Nasal Cannula 2.00 I & O 08/22/17 07:00 Intake Total 1440 ml Output Total 1100 ml Balance 340 ml General Appearance: No Apparent Distress HEENT: PERRL/EOMI, Moist Mucous Membranes Neck: Non Tender, Supple Respiratory: No Accessory Muscle Use, No Respiratory Distress, Decreased Breath Sounds (left side) Cardiovascular: Regular Rate, Rhythm, No Murmur Gastrointestinal: non tender, soft Extremity: Non Tender, No Calf Tenderness, No Pedal Edema Neurologic/Psychiatric: Alert, Oriented x3, Normal Mood/Affect Skin: Normal Color, Warm/Dry Results Lab Laboratory Tests 08/20/17 15:50 08/21/17 05:54 Assessment/Plan Assessment/Plan Pneumonia with left pleural effusion r/o empyema -Check CT of chest with contrast -Possible thoracentesis today vs transfer for thoracic surgery Pt is likely to go to surgery to day by Dr. Rodríguez for Decortication/ pleurodesis today. I 232 ERNIE HOLMAN DO Aug 22, 2017 05:53
[2017-08-22] MEDS: PIPERACILLIN SODIUM/TAZOBACTAM 4.5 GM in D5W 100 ML IVPB 100 ML IV SCH ×3 (06:09→23:23)
--- NOTE | 2017-08-22 09:02 | Progress Note-Hospitalist ---
Subjective HPI/CC On Admission Date Seen by Provider: Aug 22, 2017 Time Seen by Provider: 08:56 Pt is a 61yoCF with a PMH of HTN and tobacco abuse who presented to the ER with CC of SOB and cough and admitted for recurrent pneumonia. Subjective/Events-last exam Pt reports doing well. No complaints. Ready for OR. No questions or concerns. Focused Exam Evaluation Lactate Level Laboratory Tests 08/20/17 15:50: Lactic Acid Level 0.88 08/21/17 11:55: Lactic Acid Level 1.38 Objective Exam Vital Signs Vital Signs Date Time Temp Pulse Resp B/P (MAP) Pulse Ox O2 Delivery O2 Flow Rate FiO2 08/20/17 13:38 99.3 108 22 119/71 (87) 94 Room Air 08/20/17 17:22 2.00 Capillary Refill : General Appearance: No Apparent Distress, WD/WN Respiratory: No Respiratory Distress, Decreased Breath Sounds (left) Cardiovascular: Regular Rate, Rhythm, No Murmur Neurologic/Psychiatric: Alert, Oriented x3, Normal Mood/Affect Skin: Normal Color, Warm/Dry Results/Procedures Lab Patient resulted labs reviewed. Imaging: Reviewed Imaging Films, Reviewed Imaging Report Assessment/Plan Assessment and Plan Assess & Plan/Chief Complaint CAP with Pleural effusion Diagnosis/Problems Diagnosis/Problems (1) CAP (community acquired pneumonia) Status: Acute Assessment & Plan: With pleural effusion Attempted thoracentesis 08/21 but unable to drain much due to loculation Dr Rodríguez consulted for decortication/pleurodesis Cont Vanc and Zosyn BP improved today MAT protocol Pulm consulted for recurrent pneumonias Qualifiers: Laterality: left (2) Essential (primary) hypertension Status: Chronic Assessment & Plan: BP improved today Holding meds as is NPO (3) Tobacco abuse Status: Chronic Assessment & Plan: Recommended cessation (4) Thrombocytopenia Assessment & Plan: Chronic, stable (5) Prophylactic measure Assessment & Plan: SCDs only due to thrombocytopenia HH diet NS 100cc/hr Clinical Quality Measures DVT/VTE Risk/Contraindication: Risk Factor Score Per Nursin RFS Level Per Nursing on Admit: 3=High SOPHIA PIMENTEL MD Aug 22, 2017 9:01 am
[2017-08-22] MEDS: VANCOMYCIN 1500 MG/NS 500 ML IVPB IV SCH ×4 (09:20→22:00)
[2017-08-22] MEDS ORDERED: DEXAMETHASONE 10 MG/ML (DECADRON) 1 ML VIAL ONE (11:20)
[2017-08-22] MEDS ORDERED: LIDOCAINE PF 2% 5 ML (XYLOCAINE) VIAL ONE (11:20)
[2017-08-22] MEDS ORDERED: ROCURONIUM 10 MG/ML 5 ML SYRINGE IV ONE (11:20)
[2017-08-22] MEDS ORDERED: MIDAZOLAM 2 MG/2 ML (VERSED) VIAL ONE (11:20)
[2017-08-22] MEDS ORDERED: ONDANSETRON 4 MG/2 ML (SDV) Z0FRAN ONE (11:20)
[2017-08-22] MEDS ORDERED: SEVOFLURANE (ULTANE) 15 ML INHAL SOLN ONE ×8 (11:20→14:56)
[2017-08-22] MEDS ORDERED: proPOfol 200 MG/20 ML (DIPRIVAN) VIAL IV ONE (11:20)
[2017-08-22] MEDS ORDERED: GLYCOPYRROLATE 0.2 MG/ML (ROBINUL) 2 ML VIAL ONE ×2 (11:20→13:38)
[2017-08-22] MEDS ORDERED: NEOSTIGMINE 1 MG/ML 5 ML SYRINGE ONE ×2 (11:20→13:39)
[2017-08-22] MEDS ORDERED: fentaNYL INJECTION 250 MCG/5 ML AMP ONE (11:20)
--- NOTE | 2017-08-22 11:23 | Progress Note ---
Subjective Date Seen by Provider: Aug 22, 2017 Time Seen by Provider: 08:05 Subjective/Events-last exam Doing okay. Patient laying down for it helps breathing. Denies n/v fever sweats chills. Still with shortness of breath when up and moving. Focused Exam Evaluation Lactate Level Laboratory Tests 08/20/17 15:50: Lactic Acid Level 0.88 08/21/17 11:55: Lactic Acid Level 1.38 Objective Exam Vital Signs Date Time Temp Pulse Resp B/P (MAP) Pulse Ox O2 Delivery O2 Flow Rate FiO2 08/22/17 09:51 93 Nasal Cannula 2.00 08/22/17 08:00 99.1 84 20 124/69 (87) 98 Nasal Cannula 2.00 08/22/17 08:00 Nasal Cannula 2.00 08/22/17 04:00 99.1 101 23 107/58 (74) 93 Nasal Cannula 2.00 08/22/17 02:43 95 Nasal Cannula 2.00 08/22/17 00:00 99.3 101 22 106/59 (75) 93 Nasal Cannula 2.00 08/21/17 21:00 Nasal Cannula 2.00 08/21/17 19:39 99.6 96 24 96/54 (68) 95 Nasal Cannula 2.00 08/21/17 19:02 94 Nasal Cannula 2.00 08/21/17 16:21 98.9 111 20 106/56 (73) 93 Room Air 08/21/17 14:50 94 Nasal Cannula 2.00 08/21/17 12:00 97.5 109 20 120/60 (80) 94 Nasal Cannula 2.00 I & O 08/22/17 07:00 Intake Total 1440 ml Output Total 1650 ml Balance -210 ml Capillary Refill : General Appearance: No Apparent Distress, WD/WN HEENT: PERRL/EOMI, Moist Mucous Membranes Neck: Non Tender, Supple Respiratory: No Respiratory Distress, Decreased Breath Sounds (left) Cardiovascular: Regular Rate, Rhythm, No Murmur Gastrointestinal: non tender, soft Extremity: Non Tender, No Calf Tenderness, No Pedal Edema Neurologic/Psychiatric: Alert, Oriented x3, Normal Mood/Affect Skin: Normal Color, Warm/Dry Results Lab Laboratory Tests 08/21/17 11:55: Lactic Acid Level 1.38 08/21/17 15:30: Body Fluid pH 7 Microbiology 08/20/17 Blood Culture - Preliminary, Resulted No growth 08/21/17 Gram Stain - Final, Resulted 08/21/17 Body Fluid Culture - Preliminary, Resulted No growth 08/21/17 MRSA Screen - Final, Complete Assessment/Plan Assessment/Plan Assessment/Plan 61 year old female with left pneumonia with loculated pleural effusion r/o empyema, thrombocytopenia thoracentesis unsuccessful at draining collection patient was discussed risks and benefits of left video-assisted thorascopic surgery with decortication and pleurodesis possible open, all other indicated procedures. patient understands will have chest tube post procedure. patient understands risks and benefits and wishes to proceed patient with all questions answered OR today Clinical Quality Measures DVT/VTE Risk/Contraindication: Risk Factor Score Per Nursin RFS Level Per Nursing on Admit: 3=High BEV TORRES DO Aug 22, 2017 11:23
[2017-08-22] MEDS ORDERED: BUPIVACAINE 0.5% 30 ML (SENSORCAINE) VIAL ONE (11:55)
[2017-08-22] MEDS ORDERED: LIDOCAINE 1% INJ 20 ML 20 ML VIAL ONE (11:55)
[2017-08-22] MEDS ORDERED: PHENYLEPHRINE 100 MCG/ML 10 ML (ANESTHESIA) SYR ONE (13:55)
[2017-08-22] MEDS ORDERED: LIDOCAINE 1% IR ONE ×4 (14:00)
[2017-08-22] MEDS ORDERED: NS IR ONE ×4 (14:00)
[2017-08-22] MEDS ORDERED: DOXYCYCLINE IR ONE ×4 (14:00)
[2017-08-22] MEDS ORDERED: [UNRECOGNIZED DRUG - OTHER] IR ONE ×4 (14:00)
[2017-08-22] MEDS ORDERED: NS IV 1000 ML 1,000 ML IV SCH (14:44)
[2017-08-22] MEDS ORDERED: NALOXONE 0.4 MG/ML 1 ML (NARCAN) VIAL IV PRN (14:45)
[2017-08-22] MEDS ORDERED: ONDANSETRON 4 MG/2 ML (SDV) Z0FRAN IV PRN (14:45)
[2017-08-22] MEDS ORDERED: fentaNYL INJECTION 1,000 MCG in NS (IVPB) 80 ML IV SCH (14:45)
[2017-08-22] MEDS ORDERED: diphenhydrAMINE 50 MG/ML INJ (BENADRYL) IV PRN (14:45)
[2017-08-22] MEDS ORDERED: ROPIVACAINE 5MG/ML 30ML VIAL ONE (14:55)
[2017-08-22] MEDS ORDERED: LACTATED RINGERS 1,000 ML IV ONE (14:59)
[2017-08-22] MEDS ORDERED: morphine INJ 10 MG/ML 1ML (SYR OR VIAL) IVP PRN (15:00)
[2017-08-22] MEDS ORDERED: ONDANSETRON 4 MG/2 ML (SDV) Z0FRAN IVP PRN (15:00)
[2017-08-22] MEDS ORDERED: HYDROmorphone (DILAUDID) 2 MG/ML VIAL IVP PRN (15:00)
--- NOTE | 2017-08-22 15:43 | Diagnostic Imaging Report ---
EXAMINATION: Portable erect AP chest at 02:56 p.m. INDICATION: Post thoracotomy. FINDINGS: Reportedly, in the interval since the prior exam of 08/21/2017, the patient has undergone a thoracotomy on the left. The left lung base does seem much better aerated. There is only a small amount of residual atelectasis/infiltrate and fluid still present. There is a left-sided chest tube in place. There is a small apical pneumothorax. The distance from the bony thorax to the edge of the lung is 6.8 mm. The left upper lung also seems better aerated than on the prior exam, but there are still alveolar/interstitial infiltrates in this area. Also, in the interval since the prior study, right lower lobe atelectasis/infiltrate and fluid has developed. The heart is enlarged but stable. The mediastinum is not widened. The osseous structures are intact. The orthopedic hardware overlying the lower cervical spine seen previously is again evident and no different. IMPRESSION: 1. There has been an interval left-sided thoracotomy procedure. The left lung base does seem much better aerated. There are still areas of atelectasis/infiltrate involving the left lung, however. There is also now a small apical pneumothorax on the left. A followup study will be recommended for continued evaluation. 2. Right lower lobe atelectasis/infiltrate has also developed in the interval since the prior exam. 3. These results were discussed with Dr. Rodríguez. Dictated by: Dictated on workstation # [id number]
--- NOTE | 2017-08-22 16:12 | Progress Note-Post Operative ---
Post-Operative Progess Note Surgeon (s)/Head Porter Baggage (s) Surgeon BEV TORRES DO Head Porter Baggage: Dr. Akins Pre-Operative Diagnosis loculated pleural effusion rule out empyema Post-Operative Diagnosis loculated pleural effusion Procedure & Operative Findings Date of Procedure 08/22/17 Procedure Performed/Findings Left VATS, Converted to open mini thoracotomy with decortication and pleurodesis Anesthesia Type gen Estimated Blood Loss Estimated blood loss (mL): 50mL Specimens/Packing Specimens Removed plural fluid, fibrotic tissue BEV TORRES DO Aug 22, 2017 16:12
[2017-08-22] MEDS: morphine INJ 4 MG/ML 1 ML (VIAL/SYRINGE) IVP PRN ×3 (19:33→23:41)
[2017-08-22] MEDS ORDERED: TROUGH ORDER-PHARMACY XX NR (20:00)
[2017-08-22] MEDS: OLMESARTAN 20 MG (BENICAR) TABLET PO SCH (20:43)
[2017-08-22] MEDS: HYDROCHLOROTHIAZIDE 25 MG (HCTZ) TAB PO SCH (20:44)
[2017-08-23] VITALS (23 sets, daily range): BP systolic 88–146; BP diastolic 49–82
[2017-08-23] MEDS: morphine INJ 4 MG/ML 1 ML (VIAL/SYRINGE) IVP PRN ×2 (01:51→05:54)
[2017-08-23] MEDS ORDERED: HYDROmorphone (DILAUDID) 2 MG/ML VIAL ONE ×2 (02:37→03:26)
[2017-08-23] MEDS: NS IV 1000 ML 1,000 ML IV SCH ×4 (03:32→22:05)
[2017-08-23 03:34] LABS: BASOPHILS % (AUTO) 0 % (0-10); EOSINOPHILS % (AUTO) 0 % (0-10); HEMATOCRIT 33 % (35-52); HEMOGLOBIN 11.2 G/DL (11.5-16.0); LYMPHOCYTES # (AUTO) 0.4 X 10^3 (1.0-4.0); LYMPHOCYTES % (AUTO) 8 % (12-44); MEAN CORPUSCULAR HEMOGLOBIN 30 PG (25-34); MEAN CORPUSCULAR HGB CONC 34 G/DL (32-36); MEAN CORPUSCULAR VOLUME 89 FL (80-99); MEAN PLATELET VOLUME 12.3 FL (7.4-10.4); MONOCYTES # (AUTO) 0.3 X 10^3 (0.0-1.0); MONOCYTES % (AUTO) 6 % (0-12); NEUTROPHILS # (AUTO) 4.1 X 10^3 (1.8-7.8); NEUTROPHILS % (AUTO) 86 % (42-75); PLATELET COUNT 90 10^3/uL (130-400); RED BLOOD COUNT 3.75 10^6/uL (4.35-5.85); RED CELL DISTRIBUTION WIDTH 14.5 % (10.0-14.5); WHITE BLOOD COUNT 4.8 10^3/uL (4.3-11.0)
[2017-08-23] MEDS: RT-ALBUTEROL/IPRATROPIUM 3 ML (DUONEB) VIAL INH SCH ×5 (03:40→18:57)
[2017-08-23 03:51] LABS: BUN/CREATININE RATIO 16; CALCIUM 8.3 MG/DL (8.5-10.1); CARBON DIOXIDE 21 MMOL/L (21-32); CHLORIDE 108 MMOL/L (98-107); CREATININE SERUM 0.62 MG/DL (0.60-1.30); GFR ESTIMATED > 60; GLUCOSE 120 MG/DL (70-105); POTASSIUM 4.5 MMOL/L (3.6-5.0); SODIUM 137 MMOL/L (135-145)
--- NOTE | 2017-08-23 05:32 | Pulmonary Progress Note ---
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 Lactate Level Laboratory Tests 08/20/17 15:50: Lactic Acid Level 0.88 08/21/17 11:55: Lactic Acid Level 1.38 Exam Exam Vital Signs Date Time Temp Pulse Resp B/P (MAP) Pulse Ox O2 Delivery O2 Flow Rate FiO2 08/23/17 04:00 Nasal Cannula 5.00 08/23/17 04:00 99.2 08/23/17 03:40 94 Nasal Cannula 3.50 08/23/17 03:00 87 13 114/74 (87) 96 Nasal Cannula 5.00 08/23/17 02:00 87 10 121/69 (86) 96 Nasal Cannula 5.00 08/23/17 01:00 93 12 120/70 (87) 97 Nasal Cannula 5.00 08/23/17 01:00 100 08/23/17 00:00 96 19 121/74 (90) 97 Nasal Cannula 5.00 08/23/17 00:00 98.9 08/23/17 00:00 Nasal Cannula 5.00 08/22/17 23:00 85 12 120/74 (89) 96 Nasal Cannula 5.00 08/22/17 22:00 83 23 113/77 (89) 97 Nasal Cannula 5.00 08/22/17 21:53 98 Nasal Cannula 5.00 08/22/17 21:00 83 17 114/80 (91) 97 Nasal Cannula 5.00 08/22/17 21:00 Nasal Cannula 5.00 08/22/17 20:00 91 10 122/81 (95) 97 Nasal Cannula 5.00 08/22/17 20:00 99.0 Nasal Cannula 5.00 08/22/17 19:00 87 22 126/78 (94) 98 Nasal Cannula 5.00 08/22/17 19:00 89 08/22/17 18:30 97 Nasal Cannula 5.00 08/22/17 18:00 86 25 122/74 (90) 97 Nasal Cannula 5.00 08/22/17 17:00 95 21 127/74 (91) 97 Nasal Cannula 5.00 08/22/17 16:00 92 15 116/79 (91) 94 Nasal Cannula 5.00 08/22/17 09:51 93 Nasal Cannula 2.00 08/22/17 08:00 99.1 84 20 124/69 (87) 98 Nasal Cannula 2.00 08/22/17 08:00 Nasal Cannula 2.00 I & O 08/23/17 07:00 Intake Total 2000 ml Output Total 1200 ml Balance 800 ml General Appearance: WD/WN, Moderate Distress HEENT: PERRL/EOMI, Moist Mucous Membranes Neck: Non Tender, Supple Respiratory: No Respiratory Distress, Decreased Breath Sounds (left) Cardiovascular: Regular Rate, Rhythm, No Murmur Gastrointestinal: non tender, soft Extremity: Non Tender, No Calf Tenderness, No Pedal Edema Neurologic/Psychiatric: Alert, Oriented x3, Normal Mood/Affect Skin: Normal Color, Warm/Dry Results Lab Laboratory Tests 08/21/17 05:54 08/23/17 03:25 Assessment/Plan Assessment/Plan Pneumonia with left pleural effusion with complicated parapneumonic effusion s/ p decortication/pleurodesis -Maintain chest tube for now -Pain control -- 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
[2017-08-23] MEDS: POTASSIUM CL 10MEQ/50ML IVPB 50 ML IV SCH (06:17)
[2017-08-23] MEDS: KCL 20 MEQ TAB (K-DUR) PO SCH (06:18)
[2017-08-23] MEDS: MAGNESIUM 1 GM/100 ML IVPB 100 ML IV SCH (06:18)
[2017-08-23] MEDS: morphine PCA 30 MG/30 ML VIAL IV PRN ×2 (06:25→22:46)
--- NOTE | 2017-08-23 07:23 | Progress Note-Hospitalist ---
Subjective HPI/CC On Admission Date Seen by Provider: Aug 23, 2017 Time Seen by Provider: 07:19 Pt is a 61yoCF with a PMH of HTN and tobacco abuse who presented to the ER with CC of SOB and cough and admitted for recurrent pneumonia. Subjective/Events-last exam S/p VATS yesterday. 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 No other complaints. Focused Exam Evaluation Lactate Level Laboratory Tests 08/20/17 15:50: Lactic Acid Level 0.88 08/21/17 11:55: Lactic Acid Level 1.38 Objective Exam Vital Signs Vital Signs Date Time Temp Pulse Resp B/P (MAP) Pulse Ox O2 Delivery O2 Flow Rate FiO2 08/20/17 13:38 99.3 108 22 119/71 (87) 94 Room Air 08/20/17 17:22 2.00 Capillary Refill : General Appearance: No Apparent Distress, WD/WN Respiratory: No Accessory Muscle Use, No Respiratory Distress, Crackles, Other (chest tube) Cardiovascular: Regular Rate, Rhythm, No Murmur Extremity: Normal Capillary Refill, No Calf Tenderness, No Pedal Edema Neurologic/Psychiatric: Alert, Oriented x3, Normal Mood/Affect Results/Procedures Lab Laboratory Tests 08/23/17 03:25 Patient resulted labs reviewed. Imaging: Reviewed Imaging Films, Reviewed Imaging Report Assessment/Plan Assessment and Plan Assess & Plan/Chief Complaint CAP with Pleural effusion Diagnosis/Problems Diagnosis/Problems (1) CAP (community acquired pneumonia) Status: Acute Assessment & Plan: With pleural effusion Attempted thoracentesis 08/21 but unable to drain much due to loculation s/[facility] [facility] given negative MRSA screen MAT protocol Pulm consulted for recurrent pneumonias Qualifiers: Laterality: left (2) Essential (primary) hypertension Status: Chronic Assessment & Plan: BP well controlled with no meds currently, trend (3) Tobacco abuse Status: Chronic Assessment & Plan: Recommended cessation (4) Thrombocytopenia Assessment & Plan: Chronic, stable did have notable splenomegaly on CT- will need outpatient follow up (5) Prophylactic measure Assessment & Plan: SCDs only due to thrombocytopenia NPO NS 125cc/hr Clinical Quality Measures DVT/VTE Risk/Contraindication: Risk Factor Score Per Nursin RFS Level Per Nursing on Admit: 3=High SOPHIA PIMENTEL MD Aug 23, 2017 7:23 am
[2017-08-23] MEDS: SENNA W/DOCUSATE (SENOKOT S) TABLET PO SCH (09:00)
[2017-08-23] MEDS: HYDROCHLOROTHIAZIDE 25 MG (HCTZ) TAB PO SCH (09:00)
[2017-08-23] MEDS: OLMESARTAN 20 MG (BENICAR) TABLET PO SCH (09:00)
--- NOTE | 2017-08-23 09:39 | Physical Therapy Evaluation ---
PT Evaluation-General Medical Diagnosis Admission Date Aug 22, 2017 at 09:49 Medical Diagnosis: pneumonia/pleural effusion Onset Date: Aug 22, 2017 Therapy Diagnosis Therapy Diagnosis: generalized weakness/debility Height/Weight Height (Feet): 6 Height (Inches): 0.00 Weight (Pounds): 228 Weight (Ounces): 12.8 Precautions Precautions/Isolations: Standard Precautions Weight Bear Status Right Lower Extremity: Right Full Weight Bearing Left Lower Extremity: Left Full Weight Bearing Referral Physician: Melita Reason for Referral: Evaluation/Treatment Medical History Pertinent Medical History: Arthritis, HTN, Smoking Current History ER with SOB and cough x several weeks with increase in symptoms Reviewed History: Yes Social History Home: Single Level Current Living Status: Spouse Prior/Core FIM Prior Level of Function Functional [place] Measure 0=Not Assessed/NA 4=Minimal Assistance 1=Total Assistance 5=Supervision or Setup 2=Maximal Assistance 6=Modified [place] 3=Moderate Assistance 7=Complete [place] Bed Mobility: 7 Transfers (B,C,W/C) (FIM): 7 Gait: 7 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 Pain Numeric Pain Scale: 7 Location: Left Location Body Site: Side Pain Description: Pressure, Acute, Inspirational, Tightness Objective Patient Orientation: Normal For Age Problem Solving: Good Attachments: Chest Tube, Oxygen, Acosta Catheter, IV ROM/Strength ROM Lower Extremities bilateral LE WNL Strength Lower Extremities right knee flexion/extension 5/5; hip flexion 5/5; DF/PF 5/5 left knee flexion/extension 5/5; hip flexion 5/5; DF/PF 5/5 Integumentary/Posture Integumentary refer to nursing notes Bowel Incontinence: No Bladder Incontinence: Acosta Cath Posture WFL Neuromuscular (Tone, Coordination, Reflexes) grossly intact Sensory Vision: Wears Glasses Hearing: Functional Sensation Right Lower Extremit: Intact Sensation Left Lower Extremity: Intact Transfers Functional [place] Measure 0=Not Assessed/NA 4=Minimal Assistance 1=Total Assistance 5=Supervision or Setup 2=Maximal Assistance 6=Modified [place] 3=Moderate Assistance 7=Complete [place] Transfers (B, C, W/C) (FIM): 7 Scootin Rollin Supine to/from Sit: 7 Sit to/from Stand: 7 Gait Mode of Locomotion: Walk Anticipated Mode of Locomotion: Walk Gait (FIM): 1 Distance (FIM): 1=up to 49 ft Distance: 5 steps Gait Level of Assist: 4 Gait Persons Needed: 1 Gait Assistive Device: None Comments/Gait Description 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 female, will be seen short term by skilled PT to address functional mobility to improve pulmonary function and promote healing to return to home and work safely at independent [facility]. Rehab Potential: Good PT Alf Goals Pest Locator Goals PT Pest Locator Goals Time Frame: Aug 31, 2017 Transfers (B,C,W/C) (FIM): 7 Gait (FIM): 7 Gait distance (FIM): 3=150 ft Distance: >300' Gait Level of Assist: 7 Gait Assistive Device: None PT Plan Problem List Problem List: Activity Tolerance, Balance, Gait Treatment/Plan Treatment Plan: Continue Plan of Care Treatment Plan: Education, Functional Activity Bhumika, Functional Strength, Gait , Safety, Therapeutic Exercise Treatment Duration: Aug 31, 2017 Frequency: 5 times per week Estimated Hrs Per Day: .25 hour per day Patient and/or Family Agrees t: Yes Discharge Recommendations Therapy D/C Recommendations: Home w/ Family Support, Home Independently Time/GCodes Time In: 900 Time Out: 920 Total Billed Treatment Time: 20 [facility] C[facility] Necessary: HI Sylvester PT Aug 23, 2017 09:39
[2017-08-23] MEDS: ONDANSETRON 4 MG/2 ML (SDV) Z0FRAN IV PRN (10:02)
[2017-08-23] MEDS: PIPERACILLIN SODIUM/TAZOBACTAM 4.5 GM in D5W 100 ML IVPB 100 ML IV SCH ×3 (10:02→22:53)
--- NOTE | 2017-08-23 10:02 | Diagnostic Imaging Report ---
INDICATION: Evaluate chest tube placement. COMPARISON: 08/22/2017. FINDINGS: There is cardiomegaly. There is some venous congestion. A left thoracostomy tube is in place. There appears to be some pleural fluid loculated along the lateral aspect of the left chest wall. There are patchy bibasilar infiltrates. IMPRESSION: Patchy bibasilar infiltrates. Cardiomegaly and some venous congestion. Questionable loculated fluid along the lateral aspect of the left chest wall. Dictated by: Dictated on workstation # [id number]
[2017-08-23] MEDS: METOCLOPRAMIDE INJ 10 MG/2 ML (REGLAN) IV PRN (11:05)
--- NOTE | 2017-08-23 12:49 | Anesthesia-General Post-Op ---
General Patient Condition Mental Status/LOC: Same as Preop Cardiovascular: Satisfactory Nausea/Vomiting: Absent Respiratory: Satisfactory Pain: Controlled Complications: Absent Post Op Complications Complications None Follow Up Care/Instructions Patient Instructions None needed. Anesthesia/Patient Condition Patient Condition Patient is doing well, no complaints, stable vital signs, no apparent adverse anesthesia problems. No complications reported per nursing. ALEJA BOWER CRNA Aug 23, 2017 12:49
--- NOTE | 2017-08-23 16:02 | Progress Note ---
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 Using incentive spirometer minimally. Has been up some. Has cough and moving air better. She had some slight nausea this morning. She denies fevers sweats chills. No family at bedside. Focused Exam Lactate Level Laboratory Tests 08/21/17 11:55: Lactic Acid Level 1.38 Objective Exam Vital Signs Date Time Temp Pulse Resp B/P (MAP) Pulse Ox O2 Delivery O2 Flow Rate FiO2 08/23/17 15:00 101 32 88/66 (73) 96 Nasal Cannula 2.50 08/23/17 14:00 96 9 146/72 (96) 96 Nasal Cannula 2.50 08/23/17 13:00 93 9 107/78 (88) 96 Nasal Cannula 2.50 08/23/17 13:00 95 08/23/17 12:00 93 15 109/66 (80) 96 Nasal Cannula 2.50 08/23/17 12:00 98.2 Nasal Cannula 2.50 08/23/17 11:01 96 Nasal Cannula 3.50 08/23/17 11:00 90 17 110/70 (83) 95 Nasal Cannula 2.50 08/23/17 10:00 102 26 113/82 (92) 93 Nasal Cannula 5.00 08/23/17 09:00 96 19 113/64 (80) 94 Nasal Cannula 5.00 08/23/17 08:00 98.3 Nasal Cannula 3.00 08/23/17 08:00 Nasal Cannula 5.00 08/23/17 08:00 91 12 109/67 (81) 94 Nasal Cannula 5.00 08/23/17 07:46 96 Nasal Cannula 3.50 08/23/17 07:00 87 08/23/17 06:00 77 9 117/76 (90) 94 Nasal Cannula 5.00 08/23/17 05:00 81 9 107/69 (82) 94 Nasal Cannula 5.00 08/23/17 04:00 87 12 104/75 (85) 94 Nasal Cannula 5.00 08/23/17 04:00 Nasal Cannula 5.00 08/23/17 04:00 99.2 08/23/17 03:40 94 Nasal Cannula 3.50 08/23/17 03:00 87 13 114/74 (87) 96 Nasal Cannula 5.00 08/23/17 02:00 87 10 121/69 (86) 96 Nasal Cannula 5.00 08/23/17 01:00 93 12 120/70 (87) 97 Nasal Cannula 5.00 08/23/17 01:00 100 08/23/17 00:00 96 19 121/74 (90) 97 Nasal Cannula 5.00 08/23/17 00:00 98.9 08/23/17 00:00 Nasal Cannula 5.00 08/22/17 23:00 85 12 120/74 (89) 96 Nasal Cannula 5.00 08/22/17 22:00 83 23 113/77 (89) 97 Nasal Cannula 5.00 08/22/17 21:53 98 Nasal Cannula 5.00 08/22/17 21:00 83 17 114/80 (91) 97 Nasal Cannula 5.00 08/22/17 21:00 Nasal Cannula 5.00 08/22/17 20:00 91 10 122/81 (95) 97 Nasal Cannula 5.00 08/22/17 20:00 99.0 Nasal Cannula 5.00 08/22/17 19:00 87 22 126/78 (94) 98 Nasal Cannula 5.00 08/22/17 19:00 89 08/22/17 18:30 97 Nasal Cannula 5.00 08/22/17 18:00 86 25 122/74 (90) 97 Nasal Cannula 5.00 08/22/17 17:00 95 21 127/74 (91) 97 Nasal Cannula 5.00 08/22/17 16:00 92 15 116/79 (91) 94 Nasal Cannula 5.00 I & O 08/23/17 07:00 Intake Total 2000 ml Output Total 1500 ml Balance 500 ml Capillary Refill : General Appearance: No Apparent Distress, WD/WN HEENT: PERRL/EOMI, Moist Mucous Membranes Neck: Non Tender, Supple Respiratory: No Accessory Muscle Use, No Respiratory Distress, Crackles, Other (chest tube) Cardiovascular: Regular Rate, Rhythm, No Murmur, Other (Left chest tube, bandage stable, no air leak) Gastrointestinal: non tender, soft Extremity: Normal Capillary Refill, No Calf Tenderness, No Pedal Edema Neurologic/Psychiatric: Alert, Oriented x3, Normal Mood/Affect Skin: Normal Color, Warm/Dry Results Lab Laboratory Tests 08/22/17 20:10: Vancomycin Level Trough 8.2L 08/23/17 03:25: White Blood Count 4.8, Red Blood Count 3.75L, Hemoglobin 11.2L, Hematocrit 33L, Mean Corpuscular Volume 89, Mean Corpuscular Hemoglobin 30, Mean Corpuscular Hemoglobin Concent 34, Red Cell Distribution Width 14.5, Platelet Count 90L, Mean Platelet Volume 12.3H, Neutrophils (%) (Auto) 86H, Lymphocytes (%) (Auto) 8L, Monocytes (%) (Auto) 6, Eosinophils (%) (Auto) 0, Basophils (%) (Auto) 0, Neutrophils # (Auto) 4.1, Lymphocytes # (Auto) 0.4L, Monocytes # (Auto) 0.3, Eosinophils # (Auto) 0.0, Basophils # (Auto) 0.0, Sodium Level 137, Potassium Level 4.5, Chloride Level 108H, Carbon Dioxide Level 21, Anion Gap 8, Blood Urea Nitrogen 10, Creatinine 0.62, Estimat Glomerular Filtration Rate > 60, BUN/ Creatinine Ratio 16, Glucose Level 120H, Calcium Level 8.3L, Phosphorus Level 3.0, Magnesium Level 2.0 Microbiology 08/20/17 Blood Culture - Preliminary, Resulted No growth 08/22/17 Gram Stain - Final, Resulted 08/22/17 Anaerobic Culture, Resulted Pending 08/22/17 Surgical Culture - Preliminary, Resulted No growth 08/22/17 MRSA Screen - Final, Complete Assessment/Plan Assessment/Plan Assessment/Plan 61 year old female with left pneumonia with loculated pleural effusion r/o empyema, thrombocytopenia thoracentesis unsuccessful at draining collection s/p left VATS converted to open mini thoracotomy with decortication and pleurodesis. patient encouraged to use IS Pain control continue abx chest x ray reviewed, read says possible loculate fluid lateral aspect i feel this is from the pleurodesis. Patient encourage to cough and deep breath calabrese for acurrate i/o Continue ICU management Clinical Quality Measures DVT/VTE Risk/Contraindication: Risk Factor Score Per Nursin RFS Level Per Nursing on Admit: 3=High BEV TORRES DO Aug 23, 2017 16:02
--- NOTE | 2017-08-23 16:05 | Occ Therapy Progress Note ---
Therapy Progress Note OT orders received. Chart reviewed. OT attempted to treat pt. twice. OT explained to pt. purpose of OT. Pt. asks OT to come back, as her spouse just came and she needs to press her pain pump. OT comes back. Pt. receiving breathing treatment. RT states that she has been sick. OT asks if pt. would like OT to come back in a.m. Pt. nods head vigorously. OT will attempt back tomorrow. ,1, visit 1520, 1600 YASMEEN MIDDLETON OT Aug 23, 2017 16:05
[2017-08-23] MEDS: LIDOCAINE (LIDODERM) 5% PATCH TOP SCH (16:50)
--- NOTE | 2017-08-23 22:21 | OPERATIVE REPORT ---
DATE OF SERVICE: 08/22/2017 PREOPERATIVE DIAGNOSIS: Left Loculated pleural effusion, rule out empyema. POSTOPERATIVE DIAGNOSIS: Left loculated pleural effusion. PROCEDURE: Left video-assisted thoracoscopic surgery converted to open mini thoracotomy with decortication and pleurodesis. SURGEON: Rasheed Rodríguez DO. ANIMAL CARETAKER: Dr. Akins, assisted in retraction, dissection and closure. ANESTHESIA: General. ESTIMATED BLOOD LOSS: 50 mL. SPECIMENS: Pleural fluid and fibrotic tissue, drained 2 liters of serous-appearing fluid from the left lung cavity. PROCEDURE: The patient was taken to the operating suite, she was placed in the right lateral recumbent position after being intubated. She was then prepped and draped in sterile fashion. A timeout was performed. At the posterior axillary line, a 12 mm incision was then made and S retractors were used to dissect down to the sixth intercostal rib space. The chest cavity was then entered after the left lung was dropped by anesthesia. The chest was then entered and a finger was inserted in the chest cavity and started to be swept around removing multiple adhesions that were present. A 12 mm trocar was inserted and the scope was then inserted for further evaluation. There were multiple loculated fluid pockets present. A 5 mm trocar was then placed at the same level at the anterior axillary line. At this time, the pleural fluid was then continued to be suctioned. The loculations were continued to be slowly and bluntly taken down, but it became to the point where visualization was difficult to see, therefore a video assisted thorascopic surgery was then converted to an open mini thoracotomy. Using the incisions that were already present, the subcutaneous tissues and muscles were then divided until the chest was then entered through. Rib personalized living assistant was then placed and spread and a large amount of fluid was able to be a mobilized with a gentle sweeping of the hand and also posteriorly behind the lung breaking up these loculations and suctioned. A total of two liters of fluid was removed. There was also some fibrous components that were on the lung which were then grasped and elevated and dissected free of the lung as well. The chest was then irrigated with copious amounts of irrigation. The lung was then reexpanded and no other pathology was noted at this time, or felt at this time either. The lung was then dropped back down and the ribs were then reapproximated using 2-0 chromic sutures that were double stranded. The muscle layers were then reapproximated using a 2-0 Vicryl. The subcutaneous tissue was then reapproximated using 3-0 Vicryl and the skin was then stapled. Prior to closure, a 32-Japanese chest tube was placed through a stab incision inferior to the incision and placed in the apex of the chest. This was secured using 2-0 silk suture. The areas were then washed and dried and sterile bandages were applied. Doxycyline solution was then instilled into the left chest for pleurodesis and hest tube attached to atrium. The patient tolerated procedure well without any complications. A rib block was performed by anesthesia. The patient will be in the Intensive Care Unit postoperatively. Job ID: [id number] DocumentID: [id number] Dictated Date: 08/23/2017 15:46:24 Produce Weigher Date: 08/23/2017 22:20:13 Dictated By: DO BRIEN DE
[2017-08-24] VITALS (15 sets, daily range): BP systolic 96–130; BP diastolic 52–74
[2017-08-24] MEDS: BENZONATATE 100 MG (TESSALON) CAPSULE PO PRN (01:43)
[2017-08-24] MEDS: KETOROLAC 30 MG/ML VIAL IVP PRN ×4 (01:43→21:46)
[2017-08-24] MEDS: RT-ALBUTEROL/IPRATROPIUM 3 ML (DUONEB) VIAL INH SCH ×4 (02:39→19:40)
[2017-08-24] MEDS ORDERED: RT-ALBUTEROL/IPRATROPIUM 3 ML (DUONEB) VIAL INH PRN (02:45)
[2017-08-24 03:42] LABS: BASOPHILS % (AUTO) 0 % (0-10); EOSINOPHILS % (AUTO) 1 % (0-10); HEMATOCRIT 30 % (35-52); LYMPHOCYTES # (AUTO) 1.2 X 10^3 (1.0-4.0); LYMPHOCYTES % (AUTO) 28 % (12-44); MEAN CORPUSCULAR HEMOGLOBIN 30 PG (25-34); MEAN CORPUSCULAR HGB CONC 33 G/DL (32-36); MEAN CORPUSCULAR VOLUME 90 FL (80-99); MEAN PLATELET VOLUME 12.3 FL (7.4-10.4); MONOCYTES # (AUTO) 0.5 X 10^3 (0.0-1.0); MONOCYTES % (AUTO) 12 % (0-12); NEUTROPHILS # (AUTO) 2.4 X 10^3 (1.8-7.8); NEUTROPHILS % (AUTO) 59 % (42-75); PLATELET COUNT 90 10^3/uL (130-400); RED BLOOD COUNT 3.35 10^6/uL (4.35-5.85); RED CELL DISTRIBUTION WIDTH 14.6 % (10.0-14.5); WHITE BLOOD COUNT 4.1 10^3/uL (4.3-11.0)
[2017-08-24 04:00] LABS: BUN/CREATININE RATIO 16; CALCIUM 7.9 MG/DL (8.5-10.1); CARBON DIOXIDE 24 MMOL/L (21-32); CHLORIDE 109 MMOL/L (98-107); CREATININE SERUM 0.64 MG/DL (0.60-1.30); GFR ESTIMATED > 60; GLUCOSE 95 MG/DL (70-105); MAGNESIUM 1.9 MG/DL (1.8-2.4); PHOSPHORUS 1.9 MG/DL (2.3-4.7); POTASSIUM 3.9 MMOL/L (3.6-5.0); SODIUM 139 MMOL/L (135-145)
[2017-08-24] MEDS: POTASSIUM CL 10MEQ/50ML IVPB 50 ML IV SCH (04:49)
[2017-08-24] MEDS: MAGNESIUM 1 GM/100 ML IVPB 100 ML IV SCH (04:49)
[2017-08-24] MEDS: KCL 20 MEQ TAB (K-DUR) PO SCH (04:49)
--- NOTE | 2017-08-24 04:53 | Pulmonary Progress Note ---
Subjective Time Seen by Provider: 04:52 Subjective/Events-last exam Pt is doing well. Pain is controlled. She wakes up and answers all questions. Focused Exam Lactate Level Laboratory Tests 08/21/17 11:55: Lactic Acid Level 1.38 Exam Exam Vital Signs Date Time Temp Pulse Resp B/P (MAP) Pulse Ox O2 Delivery O2 Flow Rate FiO2 08/24/17 04:00 97.4 08/24/17 04:00 Nasal Cannula 3.00 08/24/17 03:00 90 10 99/59 (72) 95 Nasal Cannula 2.00 08/24/17 02:31 96 Nasal Cannula 3.00 08/24/17 02:00 90 22 104/61 (75) 97 Nasal Cannula 2.00 08/24/17 01:00 93 23 102/67 (79) 94 Nasal Cannula 2.00 08/24/17 01:00 90 08/24/17 00:50 93 16 93 Nasal Cannula 2.00 08/24/17 00:00 96 26 106/63 (77) 91 Nasal Cannula 1.00 08/24/17 00:00 97.8 08/24/17 00:00 Nasal Cannula 2.00 08/23/17 23:00 97 15 114/69 (84) 92 Nasal Cannula 1.00 08/23/17 22:46 15 08/23/17 22:34 95 Nasal Cannula 2.00 08/23/17 22:33 84 14 95 Nasal Cannula 1.00 08/23/17 22:00 92 17 110/70 (83) 95 Nasal Cannula 2.00 08/23/17 21:00 93 16 110/69 (83) 95 Nasal Cannula 2.00 08/23/17 20:00 93 14 105/61 (76) 95 Nasal Cannula 2.00 08/23/17 20:00 Nasal Cannula 2.00 08/23/17 19:06 Nasal Cannula 2.00 08/23/17 19:00 94 10 96/49 (65) 98 Nasal Cannula 2.50 08/23/17 19:00 94 08/23/17 18:57 97 Nasal Cannula 2.50 08/23/17 18:00 90 14 95/62 (73) 95 Nasal Cannula 2.50 08/23/17 17:00 93 29 108/62 (77) 94 Nasal Cannula 2.50 08/23/17 16:00 98.0 Nasal Cannula 2.50 08/23/17 16:00 93 11 108/61 (77) 99 Nasal Cannula 2.50 08/23/17 16:00 Nasal Cannula 2.50 08/23/17 15:52 97 Nasal Cannula 2.50 08/23/17 15:00 101 14 116/65 (82) 96 Nasal Cannula 2.50 08/23/17 14:00 96 9 146/72 (96) 96 Nasal Cannula 2.50 08/23/17 13:00 93 9 107/78 (88) 96 Nasal Cannula 2.50 08/23/17 13:00 95 08/23/17 12:00 93 15 109/66 (80) 96 Nasal Cannula 2.50 08/23/17 12:00 98.2 Nasal Cannula 2.50 08/23/17 12:00 Nasal Cannula 2.50 08/23/17 11:01 96 Nasal Cannula 3.50 08/23/17 11:00 90 17 110/70 (83) 95 Nasal Cannula 2.50 08/23/17 10:00 102 26 113/82 (92) 93 Nasal Cannula 5.00 08/23/17 09:00 96 19 113/64 (80) 94 Nasal Cannula 5.00 08/23/17 08:00 98.3 Nasal Cannula 3.00 08/23/17 08:00 Nasal Cannula 5.00 08/23/17 08:00 91 12 109/67 (81) 94 Nasal Cannula 5.00 08/23/17 07:46 96 Nasal Cannula 3.50 08/23/17 07:00 87 08/23/17 06:00 77 9 117/76 (90) 94 Nasal Cannula 5.00 08/23/17 05:00 81 9 107/69 (82) 94 Nasal Cannula 5.00 I & O 08/24/17 07:00 Intake Total 450 ml Output Total 1035 ml Balance -585 ml General Appearance: No Apparent Distress, WD/WN HEENT: PERRL/EOMI, Moist Mucous Membranes Neck: Non Tender, Supple Respiratory: No Accessory Muscle Use, No Respiratory Distress, Crackles, Other (chest tube) Cardiovascular: Regular Rate, Rhythm, No Murmur, Other (Left chest tube, bandage stable, no air leak) Gastrointestinal: non tender, soft Extremity: Normal Capillary Refill, No Calf Tenderness, No Pedal Edema Neurologic/Psychiatric: Alert, Oriented x3, Normal Mood/Affect Skin: Normal Color, Warm/Dry Results Lab Laboratory Tests 08/23/17 03:25 08/24/17 03:10 Assessment/Plan Assessment/Plan Pneumonia with left pleural effusion with complicated parapneumonic effusion s/ p decortication/pleurodesis -chest tube management per Dr. Rodríguez -Pain control -IVF to 125 -Change SVN to easy PAP -Oxygen to keep sp02 >90 -Consult PT/OT -Abx with Whitney/Iliana hyman d/c ERNIE Duran DO Aug 24, 2017 04:53
[2017-08-24] MEDS ORDERED: SODIUM PHOSPHATE INJ 30 MM in NS (IVPB) 250 ML IV ONE (05:00)
[2017-08-24] MEDS: PIPERACILLIN SODIUM/TAZOBACTAM 4.5 GM in D5W 100 ML IVPB 100 ML IV SCH ×2 (06:04→15:25)
[2017-08-24] MEDS: NS IV 1000 ML 1,000 ML IV SCH ×2 (06:05→21:46)
--- NOTE | 2017-08-24 07:26 | Progress Note-Hospitalist ---
Subjective HPI/CC On Admission Date Seen by Provider: Aug 24, 2017 Time Seen by Provider: 07:21 Pt is a 61yoCF with a PMH of HTN and tobacco abuse who presented to the ER with CC of SOB and cough and admitted for recurrent pneumonia. Subjective/Events-last exam Pt reports doing well. Was up coughing a lot but now feels she is breathing better. No BM in 2 days. Otherwise no complaints. Pain well controlled Focused Exam Lactate Level Laboratory Tests 08/21/17 11:55: Lactic Acid Level 1.38 Objective Exam Vital Signs Vital Signs Date Time Temp Pulse Resp B/P (MAP) Pulse Ox O2 Delivery O2 Flow Rate FiO2 08/20/17 13:38 99.3 108 22 119/71 (87) 94 Room Air 08/20/17 17:22 2.00 Capillary Refill : General Appearance: No Apparent Distress, WD/WN Respiratory: Lungs Clear, Other (chest tube in place) Cardiovascular: Regular Rate, Rhythm, No Murmur Gastrointestinal: Normal Bowel Sounds, Non Tender, Soft Extremity: No Calf Tenderness, No Pedal Edema Neurologic/Psychiatric: Alert, Oriented x3, Normal Mood/Affect Results/Procedures Lab Laboratory Tests 08/24/17 03:10 Patient resulted labs reviewed. Imaging: Reviewed Imaging Films, Reviewed Imaging Report Assessment/Plan Assessment and Plan Assess & Plan/Chief Complaint CAP with Pleural effusion Diagnosis/Problems Diagnosis/Problems (1) CAP (community acquired pneumonia) Status: Acute Assessment & Plan: With pleural effusion Attempted thoracentesis 08/21 but unable to drain much due to loculation Surgery consulted, appreciate recs s/p open thoracotomy on 08/[address] Rodríguez Chest tube in place, management per Dr Rodríguez Cultures: NGTD Cont Zosyn- DC Vanc given negative MRSA screen MAT protocol Pulm consulted for recurrent pneumonias Qualifiers: Laterality: left (2) Essential (primary) hypertension Status: Chronic Assessment & Plan: BP well controlled with no meds currently, trend (3) Tobacco abuse Status: Chronic Assessment & Plan: Recommended cessation (4) Thrombocytopenia Assessment & Plan: Chronic, stable did have notable splenomegaly on CT- will need outpatient follow up (5) Prophylactic measure Assessment & Plan: SCDs only due to thrombocytopenia CLD NS 75cc/hr Clinical Quality Measures DVT/VTE Risk/Contraindication: Risk Factor Score Per Nursin RFS Level Per Nursing on Admit: 3=High SOPHIA PIMENTEL MD Aug 24, 2017 7:26 am
--- NOTE | 2017-08-24 07:41 | Diagnostic Imaging Report ---
INDICATION: Pneumonia. COMPARISON: 08/24/2007 FINDINGS: Single frontal radiographic view of the chest was obtained and again demonstrates indwelling left-sided chest tube. Overall, aeration of the lungs is improved. There are residual interstitial opacities bilaterally. There is also residual prominence of the lateral left pleura. No large effusion seen on the right. No pneumothorax is identified on either side. Cardiac silhouette and pulmonary vasculature stable. Bony structures show no gross acute abnormalities. IMPRESSION: 1. Indwelling left-sided chest tube. No pneumothorax. 2. Overall improved aeration. 3. Probable residual loculated left-sided pleural effusion. Dictated by: Dictated on workstation # [id number]
[2017-08-24] MEDS: LIDOCAINE (LIDODERM) 5% PATCH TOP SCH (08:38)
[2017-08-24] MEDS: SENNA W/DOCUSATE (SENOKOT S) TABLET PO SCH (08:39)
--- NOTE | 2017-08-24 09:46 | Physical Therapy Daily Note ---
PT Daily Note-Current Subjective Patient reports she if feeling much better and is coughing more. Pain Numeric Pain Scale: 5-Moderate Pain Location: Left Location Body Site: Side Pain Description: Sharp Mental Status Patient Orientation: Normal For Age Attachments: Chest Tube, Oxygen, Acosta Catheter, IV Transfers Functional [place] Measure 0=Not Assessed/NA 4=Minimal Assistance 1=Total Assistance 5=Supervision or Setup 2=Maximal Assistance 6=Modified [place] 3=Moderate Assistance 7=Complete IndependenceIRFPAI Quality Coding Scale 6 Independent with activity with or without an assistive device 5 Patient requires set up or clean up by helper. Patient completes activity by themselves 4 Supervision or touching assist (CGA). Majestic provide cues , steadying assist 3 The helper provides less than half the effort to complete the activity 2 The helper provides more than half the effort to complete the activity 1 Dependent. The helper does all the effort to complete an activity 7 Patient refused to complete or attempt activity 9 The patient did not perform the activity before the current illness or injury 88 Not attempted due to Medical conditions or safety concerns Transfers (B, C, W/C) (FIM): 6 Scootin Rollin Supine to/from Sit: 7 Sit to/from Stand: 6 Bed to/from Chair: 6 Weight Bearing Right Lower Extremity: Right Full Weight Bearing Left Lower Extremity: Left Full Weight Bearing Gait Training Gait (FIM): 2 Distance (FIM): 3=108-60 ft Distance: 80' Gait Level of Assist: 6 Gait Assistive Device: FWW slow, steady gait sequence Assessment Patient requires time to complete all functional tasks and is up in recliner with needs met. PT Detention Goals Installation And Service Technician Goals PT Installation And Service Technician Goals Time Frame: Aug 31, 2017 Transfers (B,C,W/C) (FIM): 7 Gait (FIM): 7 Gait distance (FIM): 3=150 ft Distance: >300' Gait Level of Assist: 7 Gait Assistive Device: None PT Plan Treatment/Plan Treatment Plan: Continue Plan of Care Treatment Plan: Education, Functional Activity Bhumika, Functional Strength, Gait , Safety, Therapeutic Exercise Treatment Duration: Aug 31, 2017 Frequency: 5 times per week Estimated Hrs Per Day: .25 hour per day Patient and/or Family Agrees t: Yes Time/GCodes Time In: 916 Time Out: 939 Total Billed Treatment Time: 23 Total Billed Treatment 1 visit FA x 2 23 min HI ROBLEDO PT Aug 24, 2017 09:46
--- NOTE | 2017-08-24 10:49 | Progress Note ---
Subjective Date Seen by Provider: Aug 24, 2017 Time Seen by Provider: 10:47 Subjective/Events-last exam Pain fairly controlled. She states she breathing a little bit easier. She is coughing stuff up and moving air better. Patient is using incentive spirometer. Slight drop in hemoglobin. Denies nausea vomiting fever sweats chills. Focused Exam Lactate Level Laboratory Tests 08/21/17 11:55: Lactic Acid Level 1.38 Objective Exam Vital Signs Date Time Temp Pulse Resp B/P (MAP) Pulse Ox O2 Delivery O2 Flow Rate FiO2 08/24/17 09:12 97 Nasal Cannula 3.00 08/24/17 08:00 90 11 100/58 (72) 97 Nasal Cannula 2.00 08/24/17 07:00 91 08/24/17 07:00 90 12 96/56 (69) 98 Nasal Cannula 2.00 08/24/17 06:00 95 10 96/53 (67) 97 Nasal Cannula 2.00 08/24/17 05:00 90 11 96/58 (71) 96 Nasal Cannula 2.00 08/24/17 04:00 90 10 98/55 (69) 96 Nasal Cannula 2.00 08/24/17 04:00 97.4 08/24/17 04:00 Nasal Cannula 3.00 08/24/17 03:00 90 10 99/59 (72) 95 Nasal Cannula 2.00 08/24/17 02:31 96 Nasal Cannula 3.00 08/24/17 02:00 90 22 104/61 (75) 97 Nasal Cannula 2.00 08/24/17 01:00 93 23 102/67 (79) 94 Nasal Cannula 2.00 08/24/17 01:00 90 08/24/17 00:50 93 16 93 Nasal Cannula 2.00 08/24/17 00:00 96 26 106/63 (77) 91 Nasal Cannula 1.00 08/24/17 00:00 97.8 08/24/17 00:00 Nasal Cannula 2.00 08/23/17 23:00 97 15 114/69 (84) 92 Nasal Cannula 1.00 08/23/17 22:46 15 08/23/17 22:34 95 Nasal Cannula 2.00 08/23/17 22:33 84 14 95 Nasal Cannula 1.00 08/23/17 22:00 92 17 110/70 (83) 95 Nasal Cannula 2.00 18 21:00 93 16 110/69 (83) 95 Nasal Cannula 2.00 18 20:00 93 14 105/61 (76) 95 Nasal Cannula 2.00 08/23/17 20:00 Nasal Cannula 2.00 08/23/17 19:06 Nasal Cannula 2.00 4/18 19:00 94 10 96/49 (65) 98 Nasal Cannula 2.50 4 19:00 94 418 18:57 97 Nasal Cannula 2.50 4/18 18:00 90 14 95/62 (73) 95 Nasal Cannula 2.50 18 17:00 93 29 108/62 (77) 94 Nasal Cannula 2.50 08/23/17 16:00 98.0 Nasal Cannula 2.50 18 16:00 93 11 108/61 (77) 99 Nasal Cannula 2.50 08/23/17 16:00 Nasal Cannula 2.50 18 15:52 97 Nasal Cannula 2.50 18 15:00 101 14 116/65 (82) 96 Nasal Cannula 2.50 08/23/17 14:00 96 9 146/72 (96) 96 Nasal Cannula 2.50 08/23/17 13:00 93 9 107/78 (88) 96 Nasal Cannula 2.50 08/23/17 13:00 95 18 12:00 93 15 109/66 (80) 96 Nasal Cannula 2.50 08/23/17 12:00 98.2 Nasal Cannula 2.50 08/23/17 12:00 Nasal Cannula 2.50 08/23/17 11:01 96 Nasal Cannula 3.50 18 11:00 90 17 110/70 (83) 95 Nasal Cannula 2.50 I & O 08/24/17 07:00 Intake Total 1575 ml Output Total 1370 ml Balance 205 ml Capillary Refill : General Appearance: No Apparent Distress, WD/WN HEENT: PERRL/EOMI, Moist Mucous Membranes Neck: Non Tender, Supple Respiratory: Crackles, Other (chest tube in place) Cardiovascular: Regular Rate, Rhythm, No Murmur Gastrointestinal: non tender, soft Extremity: No Calf Tenderness, No Pedal Edema Neurologic/Psychiatric: Alert, Oriented x3, Normal Mood/Affect Skin: Normal Color, Warm/Dry Results Lab Laboratory Tests 08/24/17 03:10: White Blood Count 4.1L, Red Blood Count 3.35L, Hemoglobin 10.0L, Hematocrit 30L , Mean Corpuscular Volume 90, Mean Corpuscular Hemoglobin 30, Mean Corpuscular Hemoglobin Concent 33, Red Cell Distribution Width 14.6H, Platelet Count 90L, Mean Platelet Volume 12.3H, Neutrophils (%) (Auto) 59, Lymphocytes (%) (Auto) 28 , Monocytes (%) (Auto) 12, Eosinophils (%) (Auto) 1, Basophils (%) (Auto) 0, Neutrophils # (Auto) 2.4, Lymphocytes # (Auto) 1.2, Monocytes # (Auto) 0.5, Eosinophils # (Auto) 0.0, Basophils # (Auto) 0.0, Sodium Level 139, Potassium Level 3.9, Chloride Level 109H, Carbon Dioxide Level 24, Anion Gap 6, Blood Urea Nitrogen 10, Creatinine 0.64, Estimat Glomerular Filtration Rate > 60, BUN/ Creatinine Ratio 16, Glucose Level 95, Calcium Level 7.9L, Phosphorus Level 1.9L , Magnesium Level 1.9 Microbiology 08/20/17 Blood Culture - Preliminary, Resulted No growth 08/22/17 Gram Stain - Final, Resulted 08/22/17 Anaerobic Culture - Preliminary, Resulted No growth 08/22/17 Surgical Culture - Preliminary, Resulted No growth 08/22/17 MRSA Screen - Final, Complete Assessment/Plan Assessment/Plan Assessment/Plan 61 year old female with left pneumonia with loculated pleural effusion r/o empyema, thrombocytopenia thoracentesis unsuccessful at draining collection s/p left VATS converted to open mini thoracotomy with decortication and pleurodesis. patient encouraged to use IS Pain control continue abx chest x ray reviewed, read says possible loculate fluid lateral aspect i feel this is from the pleurodesis, or hematoma. Patient encourage to cough and deep breath JYOTI Acosta Continue ICU management Clinical Quality Measures DVT/VTE Risk/Contraindication: Risk Factor Score Per Nursin RFS Level Per Nursing on Admit: 3=High BEV TORRES DO Aug 24, 2017 10:49
[2017-08-24] MEDS: ONDANSETRON 4 MG/2 ML (SDV) Z0FRAN IV PRN (10:54)
--- NOTE | 2017-08-24 13:55 | Occupational Therapy Eval ---
OT Evaluation-General/PLF Medical Diagnosis Admission Date Aug 22, 2017 at 09:49 Medical Diagnosis: pneumonia/pleural effusion Onset Date: Aug 22, 2017 Therapy Diagnosis Therapy Diagnosis: debiltiy Height/Weight Height (Feet): 6 Height (Inches): 0.00 Weight (Pounds): 228 Weight (Ounces): 12.8 Precautions Precautions/Isolations: Standard Precautions Safety Interventions: None Referral Physician: Melita Medical History Pertinent Medical History: Arthritis, HTN, Smoking Reviewed History: Yes Social History Home: Single Level Current Living Status: Spouse Entry Into Home: Ramp ADL-Prior Level of Function ADL PLOF Comments Pt reports being independent prior to admission. 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 No assistive devices. DME/Equipment: Bath Chair, Shower, Tub/Shower Drive Self: Yes OT Current Status Subjective Pt sitting in chair, agrees to therapy. Pt reports 1/10 pain in left shoulder area. Mental Status/Objective Patient Orientation: Person, Place, Situation Attachments: Chest Tube, Acosta Catheter, IV, Oxygen Current Glasses/Contacts: Yes Hand Dominance: Right Upper Extremity ROM Left UE mildly decreased secondary to pain from chest tube placement Right UE WFL Upper Extremity Coordination Intact ADL-Treatment ADL-Current Pt picks up cup from bedside table and drinks without assistance. Pt combed hair after set up. Pt performed sit to stand with assist only to manage multiple lines. Pt requests to remain seated in chair. Education provided regarding role of OT and plan of care. Pt states understanding of education and is in agreement. Pt sitting in chair with needs met after session. Functional [place] Measure 0=Not Assessed/NA 4=Minimal Assistance 1=Total Assistance 5=Supervision or Setup 2=Maximal Assistance 6=Modified [place] 3=Moderate Assistance 7=Complete IndependenceIRFPAI Quality Coding Scale 6 Independent with activity with or without an assistive device 5 Patient requires set up or clean up by helper. Patient completes activity by themselves 4 Supervision or touching assist (CGA). Parnell provide cues , steadying assist 3 The helper provides less than half the effort to complete the activity 2 The helper provides more than half the effort to complete the activity 1 Dependent. The helper does all the effort to complete an activity 7 Patient refused to complete or attempt activity 9 The patient did not perform the activity before the current illness or injury 88 Not attempted due to Medical conditions or safety concerns Eating (FIM): 7 Grooming (FIM): 5 Education OT Patient Education: Rehab process Teaching Recipient: Patient Teaching Methods: Discussion Response to Teaching: Verbalize Understanding OT Short Term Goals Short Term Goals 1=Demonstrate adherence to instructed precautions during ADL tasks. 2=Patient will verbalize/demonstrate understanding of assistive devices/ modifications for ADL. 3=Patient will improve strength/tolerance for activity to enable patient to perform ADL's. OT Edger Automatic Goals Longterm Goals Time Frame: Sep 03, 2017 Grooming(FIM): 6 Upper Body Dressing(FIM): 6 Lower Body Dressing(FIM): 6 Toileting(FIM): 6 Toilet/Commode Transfer(FIM): 6 Additional Goals: 2-Verbalize Understanding, 3-ImproveStrength/Bhumika 1=Demonstrate adherence to instructed precautions during ADL tasks. 2=Patient will verbalize/demonstrate understanding of assistive devices/ modifications for ADL. 3=Patient will improve strength/tolerance for activity to enable patient to perform ADL's. OT Education/Plan Problem List/Assessment Assessment: Decreased Activ Tolerance, Dependent Transfers, Impaired Self-Care Skills Pt to benefit from skilled OT while hospitalized to increase overall strength, activity tolerance and functional independence to allow safe discharge home. Discharge Recommendations Plan/Recommendations: Continue POC Treatment Plan/Plan of Care Treatment,Training & Education: Yes Patient would benefit from OT for education, treatment and training to promote independence in ADL's, mobility, safety and/or upper extremity function for ADL' s. Plan of Care: ADL Retraining, Functional Mobility, UE Funct Exercise/Act Treatment Duration: Sep 03, 2017 Frequency: 5 times per week Estimated Hrs Per Day: .25 hour per day Agreement: Yes Rehab Potential: Good Time/GCodes Start Time: 11:35 Stop Time: 11:54 Total Time Billed (hr/min): 19 Billed Treatment Time 1 visit, STEWART(19minutes) BETH DOUGLAS OT Aug 24, 2017 13:55
[2017-08-24] MEDS: morphine PCA 30 MG/30 ML VIAL IV PRN (16:54)
--- NOTE | 2017-08-24 17:09 | Diagnostic Imaging Report ---
INDICATION: Chest tube evaluation. EXAMINATION: Upright portable AP view chest of the chest was obtained. COMPARISON: Study of earlier in the day. FINDINGS: The left thoracostomy tube remains in place. Left pleural fluid and/or thickening has not significantly changed. Pulmonary vascularity is at the upper limits. There is no evidence of pneumothorax. IMPRESSION: Pulmonary venous congestion with persistent left pleural fluid and/or thickening. Left thoracostomy tube remains in place without evidence of pneumothorax. Dictated by: Dictated on workstation # [id number]
[2017-08-24] MEDS: ACETAMINOPHEN 325 MG TABLET/CAPLET (TYLENOL) PO PRN (21:46)
[2017-08-25] VITALS (23 sets, daily range): BP systolic 94–123; BP diastolic 48–73
[2017-08-25] MEDS: PIPERACILLIN SODIUM/TAZOBACTAM 4.5 GM in D5W 100 ML IVPB 100 ML IV SCH ×4 (00:18→23:06)
[2017-08-25] MEDS: RT-ALBUTEROL/IPRATROPIUM 3 ML (DUONEB) VIAL INH SCH ×4 (02:22→19:24)
[2017-08-25 03:44] LABS: BASOPHILS % (AUTO) 0 % (0-10); EOSINOPHILS # (AUTO) 0.2 10^3/uL (0.0-0.3); EOSINOPHILS % (AUTO) 6 % (0-10); HEMATOCRIT 30 % (35-52); HEMOGLOBIN 9.7 G/DL (11.5-16.0); LYMPHOCYTES # (AUTO) 0.7 X 10^3 (1.0-4.0); LYMPHOCYTES % (AUTO) 26 % (12-44); MEAN CORPUSCULAR HEMOGLOBIN 29 PG (25-34); MEAN CORPUSCULAR HGB CONC 32 G/DL (32-36); MEAN CORPUSCULAR VOLUME 91 FL (80-99); MONOCYTES # (AUTO) 0.3 X 10^3 (0.0-1.0); MONOCYTES % (AUTO) 11 % (0-12); NEUTROPHILS # (AUTO) 1.5 X 10^3 (1.8-7.8); NEUTROPHILS % (AUTO) 57 % (42-75); PLATELET COUNT 86 10^3/uL (130-400); RED BLOOD COUNT 3.32 10^6/uL (4.35-5.85); RED CELL DISTRIBUTION WIDTH 14.9 % (10.0-14.5); WHITE BLOOD COUNT 2.7 10^3/uL (4.3-11.0)
[2017-08-25] MEDS: ONDANSETRON 4 MG/2 ML (SDV) Z0FRAN IV PRN (03:47)
[2017-08-25 03:59] LABS: BUN/CREATININE RATIO 17; CALCIUM 7.8 MG/DL (8.5-10.1); CARBON DIOXIDE 23 MMOL/L (21-32); CHLORIDE 110 MMOL/L (98-107); CREATININE SERUM 0.65 MG/DL (0.60-1.30); GFR ESTIMATED > 60; GLUCOSE 86 MG/DL (70-105); MAGNESIUM 1.9 MG/DL (1.8-2.4); PHOSPHORUS 2.5 MG/DL (2.3-4.7); POTASSIUM 3.7 MMOL/L (3.6-5.0); SODIUM 140 MMOL/L (135-145)
[2017-08-25 04:06] LABS: OCCULT BLOOD,GASTRIC FLUID POSITIVE (NEGATIVE)
[2017-08-25] MEDS: POTASSIUM CL 10MEQ/50ML IVPB 50 ML IV SCH (04:24)
[2017-08-25] MEDS: MAGNESIUM 1 GM/100 ML IVPB 100 ML IV SCH (04:25)
[2017-08-25] MEDS: KCL 20 MEQ TAB (K-DUR) PO SCH (04:25)
[2017-08-25] MEDS ORDERED: PANTOPRAZOLE 40 MG (PROTONIX) TAB PO ONE (04:45)
[2017-08-25] MEDS: morphine PCA 30 MG/30 ML VIAL IV PRN ×2 (07:30→23:10)
[2017-08-25] MEDS: SENNA W/DOCUSATE (SENOKOT S) TABLET PO SCH (07:59)
[2017-08-25] MEDS: PANTOPRAZOLE 40 MG (PROTONIX) TAB PO SCH ×2 (07:59→20:42)
[2017-08-25] MEDS: LIDOCAINE (LIDODERM) 5% PATCH TOP SCH (08:01)
--- NOTE | 2017-08-25 08:06 | Diagnostic Imaging Report ---
INDICATION: Chest tube. Comparison made to a previous from 08/24/2017. FINDINGS: Positioning of the patient's left chest tube unchanged. Fluid capping the left apex and pleural thickening or fluid along the left lateral chest wall unchanged. Advanced chronic interstitial changes are also present within the lungs. There is a stable dense nodule within the right lung most compatible with a granuloma. Heart size unchanged. Prior operative changes of anterior cervical discectomy and fusion noted. Impression: 1. Stable positioning of the patient's left chest tube without evidence of pneumothorax. Fluid capping the left lung apex and lobulated pleural fluid or pleural thickening along the lateral chest wall of the left base unchanged. There are advanced chronic interstitial changes present within the lungs. Dictated by: Dictated on workstation # [id number]
--- NOTE | 2017-08-25 09:02 | Progress Note-Hospitalist ---
Subjective HPI/CC On Admission Date Seen by Provider: Aug 25, 2017 Time Seen by Provider: 08:56 Pt is a 61yoCF with a PMH of HTN and tobacco abuse who presented to the ER with CC of SOB and cough and admitted for recurrent pneumonia. Subjective/Events-last exam Pt reports doing well. No complaints stated. Did not mention coffee ground emesis but when asked thinks it is due to only eating jello and the narcotics. Objective Exam Vital Signs Vital Signs Date Time Temp Pulse Resp B/P (MAP) Pulse Ox O2 Delivery O2 Flow Rate FiO2 08/20/17 13:38 99.3 108 22 119/71 (87) 94 Room Air 08/20/17 17:22 2.00 Capillary Refill : General Appearance: No Apparent Distress, WD/WN Respiratory: Lungs Clear, No Accessory Muscle Use, No Respiratory Distress, Other (chest tube in place) Cardiovascular: Regular Rate, Rhythm, No Edema, No Murmur Extremity: No Calf Tenderness, No Pedal Edema Neurologic/Psychiatric: Alert, Oriented x3, Depressed Affect Results/Procedures Lab Laboratory Tests 08/25/17 03:25 Patient resulted labs reviewed. Imaging: Reviewed Imaging Films, Reviewed Imaging Report Assessment/Plan Assessment and Plan Assess & Plan/Chief Complaint CAP with Pleural effusion Diagnosis/Problems Diagnosis/Problems (1) CAP (community acquired pneumonia) Status: Acute Assessment & Plan: With pleural effusion Dr Hua attempted thoracentesis 08/21 but unable to drain much due to loculation Surgery consulted, appreciate recs s/p open thoracotomy on 08/[address] Rodríguez Chest tube in place, management per Dr Rodríguez Cultures: NGTD Cont Zosyn- DC Vanc given negative MRSA screen MAT protocol Pulm consulted for recurrent pneumonias Qualifiers: Laterality: left Lung location: lower lobe of lung Qualified Codes: J18.1 - Lobar pneumonia, unspecified organism (2) Normocytic anemia Status: Acute Assessment & Plan: Hgb down today likely due to coffee ground emesis (UGI bleed ) Will likely need IV iron prior to discharge PPI Surgery aware (3) Essential (primary) hypertension Status: Chronic Assessment & Plan: BP well controlled with no meds currently, trend (4) Tobacco abuse Status: Chronic Assessment & Plan: Recommended cessation (5) Thrombocytopenia Status: Chronic Assessment & Plan: Chronic, stable did have notable splenomegaly on CT- will need outpatient follow up (6) Prophylactic measure Status: Acute Assessment & Plan: SCDs only due to thrombocytopenia Soft diet NS 75cc/hr Clinical Quality Measures DVT/VTE Risk/Contraindication: Risk Factor Score Per Nursin RFS Level Per Nursing on Admit: 3=High SOPHIA PIMENTEL MD Aug 25, 2017 9:02 am
--- NOTE | 2017-08-25 09:48 | Physical Therapy Daily Note ---
PT Daily Note-Current Subjective States that she is loopy from the morphine. Pain Numeric Pain Scale: 2 Transfers Functional [place] Measure 0=Not Assessed/NA 4=Minimal Assistance 1=Total Assistance 5=Supervision or Setup 2=Maximal Assistance 6=Modified [place] 3=Moderate Assistance 7=Complete IndependenceIRFPAI Quality Coding Scale 6 Independent with activity with or without an assistive device 5 Patient requires set up or clean up by helper. Patient completes activity by themselves 4 Supervision or touching assist (CGA). [place] provide cues , steadying assist 3 The helper provides less than half the effort to complete the activity 2 The helper provides more than half the effort to complete the activity 1 Dependent. The helper does all the effort to complete an activity 7 Patient refused to complete or attempt activity 9 The patient did not perform the activity before the current illness or injury 88 Not attempted due to Medical conditions or safety concerns Transfers (B, C, W/C) (FIM): 5 Sit to/from Stand: 5 Weight Bearing Right Lower Extremity: Right Full Weight Bearing Left Lower Extremity: Left Full Weight Bearing Gait Training Distance (FIM): 7=212-59 ft Exercises Seated Therapy Exercises: LE Protocol Seated Reps: 20 Assessment Current Status: Excellent Progress Patient was very lethargic and falling asleep with chair exercises. PT Kiss Mixer Goals Kiss Mixer Goals PT Kiss Mixer Goals Time Frame: Aug 31, 2017 Transfers (B,C,W/C) (FIM): 7 Gait (FIM): 7 Gait distance (FIM): 3=150 ft Distance: >300' Gait Level of Assist: 7 Gait Assistive Device: None PT Plan Treatment/Plan Treatment Plan: Continue Plan of Care Treatment Plan: Education, Functional Activity Bhumika, Functional Strength, Gait , Safety, Therapeutic Exercise Treatment Duration: Aug 31, 2017 Frequency: 5 times per week Estimated Hrs Per Day: .25 hour per day Patient and/or Family Agrees t: Yes Time/GCodes Time In: 915 Time Out: 925 Total Billed Treatment Time: 10 Total Billed Treatment 1, EX x 10 FRED MARIANO PT Aug 25, 2017 09:48
[2017-08-25] MEDS: KETOROLAC 30 MG/ML VIAL IVP PRN ×2 (13:57→20:41)
[2017-08-25] MEDS: NS IV 1000 ML 1,000 ML IV SCH (20:43)
--- NOTE | 2017-08-25 21:47 | Progress Note ---
Subjective Date Seen by Provider: Aug 25, 2017 Time Seen by Provider: 08:58 Subjective/Events-last exam Sitting in chair. Coughing and feels rattle in chest. Feels like getting better. Had some coffee ground emesis per nursing this morning only once. Pain controlled. Using incentive spirometer. Denies fever sweats chills. Still breathing easier. Objective Exam Vital Signs Date Time Temp Pulse Resp B/P (MAP) Pulse Ox O2 Delivery O2 Flow Rate FiO2 08/25/17 19:24 96 Nasal Cannula 3.00 08/25/17 19:00 16 08/25/17 18:00 103 17 98 Nasal Cannula 2.00 08/25/17 17:00 87 17 113/64 (80) 98 Nasal Cannula 2.00 08/25/17 16:00 89 21 111/48 (69) 97 Nasal Cannula 2.00 08/25/17 16:00 98 Nasal Cannula 3.00 08/25/17 16:00 97.9 08/25/17 15:00 91 10 109/60 (76) 97 Nasal Cannula 2.00 08/25/17 14:29 97 Nasal Cannula 3.00 08/25/17 14:00 90 12 109/60 (76) 96 Nasal Cannula 2.00 08/25/17 13:00 96 08/25/17 13:00 93 14 116/63 (80) 96 Nasal Cannula 2.00 08/25/17 12:00 98.6 08/25/17 12:00 98 Nasal Cannula 3.00 08/25/17 12:00 97 18 101/61 (74) 93 Nasal Cannula 2.00 08/25/17 11:00 91 15 99/57 (71) 93 Nasal Cannula 2.00 08/25/17 10:00 93 12 106/56 (73) 96 Nasal Cannula 2.00 08/25/17 09:00 97 Nasal Cannula 3.00 08/25/17 09:00 85 11 94/56 (69) 99 Nasal Cannula 2.00 08/25/17 08:00 Nasal Cannula 3.00 08/25/17 08:00 89 13 99/64 (76) 97 Nasal Cannula 2.00 08/25/17 07:30 11 08/25/17 07:00 98.9 08/25/17 07:00 89 11 97/66 (76) 97 Nasal Cannula 2.00 08/25/17 07:00 89 08/25/17 06:00 92 11 104/63 (77) 96 Nasal Cannula 2.00 08/25/17 05:00 99 15 112/67 (82) 96 Nasal Cannula 2.00 08/25/17 04:48 99.4 08/25/17 04:00 98 12 106/63 (77) 95 Nasal Cannula 2.00 08/25/17 04:00 Nasal Cannula 3.00 08/25/17 03:00 91 11 95/64 (74) 96 Nasal Cannula 2.00 08/25/17 02:22 96 Nasal Cannula 3.00 08/25/17 02:00 92 11 106/67 (80) 96 Nasal Cannula 2.00 08/25/17 01:00 94 08/25/17 01:00 102 20 102/62 (75) 95 Nasal Cannula 2.00 08/25/17 00:38 98.6 98 12 107/60 (76) 94 Nasal Cannula 2.00 08/25/17 00:00 Nasal Cannula 3.00 08/24/17 23:00 111 16 112/68 (83) 94 Nasal Cannula 2.00 08/24/17 22:16 98.6 08/24/17 22:00 115 28 93 Nasal Cannula 2.00 I & O 08/25/17 07:00 Intake Total 220 ml Output Total 705 ml Balance -485 ml Capillary Refill : General Appearance: No Apparent Distress, WD/WN HEENT: PERRL/EOMI, Moist Mucous Membranes Neck: Non Tender, Supple Respiratory: No Accessory Muscle Use (incision c/d/i), No Respiratory Distress , Other Cardiovascular: Regular Rate, Rhythm, No Edema, No Murmur Gastrointestinal: non tender, soft Extremity: No Calf Tenderness, No Pedal Edema Neurologic/Psychiatric: Alert, Oriented x3, Depressed Affect Skin: Normal Color, Warm/Dry Results Lab Laboratory Tests 08/25/17 03:25: White Blood Count 2.7L, Red Blood Count 3.32L, Hemoglobin 9.7L, Hematocrit 30L, Mean Corpuscular Volume 91, Mean Corpuscular Hemoglobin 29, Mean Corpuscular Hemoglobin Concent 32, Red Cell Distribution Width 14.9H, Platelet Count 86L, Mean Platelet Volume 12.0H, Neutrophils (%) (Auto) 57, Lymphocytes (%) (Auto) 26 , Monocytes (%) (Auto) 11, Eosinophils (%) (Auto) 6, Basophils (%) (Auto) 0, Neutrophils # (Auto) 1.5L, Lymphocytes # (Auto) 0.7L, Monocytes # (Auto) 0.3, Eosinophils # (Auto) 0.2, Basophils # (Auto) 0.0, Sodium Level 140, Potassium Level 3.7, Chloride Level 110H, Carbon Dioxide Level 23, Anion Gap 7, Blood Urea Nitrogen 11, Creatinine 0.65, Estimat Glomerular Filtration Rate > 60, BUN/ Creatinine Ratio 17, Glucose Level 86, Calcium Level 7.8L, Phosphorus Level 2.5 , Magnesium Level 1.9 08/25/17 03:55: Gastric Fluid Occult Blood POSITIVE 08/25/17 10:05: Hemoglobin 9.9L 08/25/17 15:55: Hemoglobin 9.1L Microbiology 08/20/17 Blood Culture - Preliminary, Resulted No growth 08/22/17 Gram Stain - Final, Resulted 08/22/17 Anaerobic Culture - Preliminary, Resulted No growth 08/22/17 Surgical Culture - Preliminary, Resulted No growth 08/22/17 MRSA Screen - Final, Complete Assessment/Plan Assessment/Plan Assessment/Plan 61 year old female with left pneumonia with loculated pleural effusion r/o empyema, thrombocytopenia thoracentesis unsuccessful at draining collection s/p left VATS converted to open mini thoracotomy with decortication and pleurodesis. occult + emesis patient encouraged to use IS Pain control Protonix chest tube on water seal continue abx Patient encourage to cough and deep breath Continue ICU management Clinical Quality Measures DVT/VTE Risk/Contraindication: Risk Factor Score Per Nursin RFS Level Per Nursing on Admit: 3=High BEV TORRES DO Aug 25, 2017 21:47
[2017-08-26] VITALS (14 sets, daily range): BP systolic 111–140; BP diastolic 61–77
[2017-08-26] MEDS: KETOROLAC 30 MG/ML VIAL IVP PRN ×3 (00:36→15:40)
[2017-08-26] MEDS: RT-ALBUTEROL/IPRATROPIUM 3 ML (DUONEB) VIAL INH SCH ×4 (02:05→21:17)
[2017-08-26 04:10] LABS: BASOPHILS % (AUTO) 0 % (0-10); EOSINOPHILS # (AUTO) 0.1 10^3/uL (0.0-0.3); EOSINOPHILS % (AUTO) 5 % (0-10); HEMATOCRIT 28 % (35-52); HEMOGLOBIN 9.1 G/DL (11.5-16.0); LYMPHOCYTES # (AUTO) 0.5 X 10^3 (1.0-4.0); LYMPHOCYTES % (AUTO) 20 % (12-44); MEAN CORPUSCULAR HEMOGLOBIN 29 PG (25-34); MEAN CORPUSCULAR HGB CONC 32 G/DL (32-36); MEAN CORPUSCULAR VOLUME 90 FL (80-99); MEAN PLATELET VOLUME 12.5 FL (7.4-10.4); MONOCYTES # (AUTO) 0.2 X 10^3 (0.0-1.0); MONOCYTES % (AUTO) 9 % (0-12); NEUTROPHILS # (AUTO) 1.5 X 10^3 (1.8-7.8); NEUTROPHILS % (AUTO) 66 % (42-75); PLATELET COUNT 71 10^3/uL (130-400); RED BLOOD COUNT 3.12 10^6/uL (4.35-5.85); RED CELL DISTRIBUTION WIDTH 14.5 % (10.0-14.5); WHITE BLOOD COUNT 2.3 10^3/uL (4.3-11.0)
[2017-08-26 04:32] LABS: BUN/CREATININE RATIO 13; CALCIUM 7.9 MG/DL (8.5-10.1); CARBON DIOXIDE 26 MMOL/L (21-32); CHLORIDE 108 MMOL/L (98-107); GFR ESTIMATED > 60; GLUCOSE 89 MG/DL (70-105); MAGNESIUM 1.9 MG/DL (1.8-2.4); POTASSIUM 3.6 MMOL/L (3.6-5.0); SODIUM 138 MMOL/L (135-145)
[2017-08-26] MEDS: POTASSIUM CL 10MEQ/50ML IVPB 50 ML IV SCH (05:45)
[2017-08-26] MEDS: MAGNESIUM 1 GM/100 ML IVPB 100 ML IV SCH (05:46)
[2017-08-26] MEDS: KCL 20 MEQ TAB (K-DUR) PO SCH (05:48)
[2017-08-26] MEDS: ONDANSETRON 4 MG/2 ML (SDV) Z0FRAN IV PRN (07:30)
[2017-08-26] MEDS: PANTOPRAZOLE 40 MG (PROTONIX) TAB PO SCH ×2 (08:32→22:18)
[2017-08-26] MEDS: LIDOCAINE (LIDODERM) 5% PATCH TOP SCH (08:33)
[2017-08-26] MEDS: SENNA W/DOCUSATE (SENOKOT S) TABLET PO SCH (08:33)
[2017-08-26] MEDS: PIPERACILLIN SODIUM/TAZOBACTAM 4.5 GM in D5W 100 ML IVPB 100 ML IV SCH ×3 (08:33→22:18)
--- NOTE | 2017-08-26 08:51 | Progress Note-Hospitalist ---
Subjective HPI/CC On Admission Date Seen by Provider: Aug 26, 2017 Time Seen by Provider: 08:47 Pt is a 61yoCF with a PMH of HTN and tobacco abuse who presented to the ER with CC of SOB and cough and admitted for recurrent pneumonia. Subjective/Events-last exam Pt reports doing okay but having some back pain. Otherwise eating and drinking well. No other complaints. Objective Exam Vital Signs Vital Signs Date Time Temp Pulse Resp B/P (MAP) Pulse Ox O2 Delivery O2 Flow Rate FiO2 08/20/17 13:38 99.3 108 22 119/71 (87) 94 Room Air 08/20/17 17:22 2.00 Capillary Refill : General Appearance: No Apparent Distress, WD/WN Neck: Non Tender, Supple Respiratory: No Respiratory Distress, Rhonci, Other (chest tube in) Cardiovascular: Regular Rate, Rhythm, No Murmur Gastrointestinal: Normal Bowel Sounds, Soft Extremity: No Calf Tenderness, No Pedal Edema Neurologic/Psychiatric: Alert, Oriented x3, Normal Mood/Affect Results/Procedures Lab Laboratory Tests 08/25/17 10:05 08/25/17 15:55 08/26/17 03:25 Patient resulted labs reviewed. Imaging: Reviewed Imaging Films, Reviewed Imaging Report Assessment/Plan Assessment and Plan Assess & Plan/Chief Complaint CAP with Pleural effusion Diagnosis/Problems Diagnosis/Problems (1) CAP (community acquired pneumonia) Status: Acute Assessment & Plan: Pulm consulted for recurrent pneumonias With pleural effusion Dr Hua attempted thoracentesis 08/21 but unable to drain much due to loculation Surgery consulted, appreciate recs s/p open thoracotomy on 08/[address] Rodríguez Chest tube in place, management per Dr Rodríguez- plan to remove today Cultures: NGTD Cont Zosyn MAT protocol Qualifiers: Laterality: left Lung location: lower lobe of lung Qualified Codes: J18.1 - Lobar pneumonia, unspecified organism (2) Normocytic anemia Status: Acute Assessment & Plan: Hgb stable today Will likely need IV iron prior to discharge Cont PPI Surgery aware (3) Essential (primary) hypertension Status: Chronic Assessment & Plan: BP well controlled with no meds currently, trend (4) Tobacco abuse Status: Chronic Assessment & Plan: Recommended cessation (5) Thrombocytopenia Status: Chronic Assessment & Plan: Chronic, stable did have notable splenomegaly on CT- will need outpatient follow up (6) Prophylactic measure Status: Acute Assessment & Plan: SCDs only due to thrombocytopenia and GI bleed Soft diet NS 75cc/hr Clinical Quality Measures DVT/VTE Risk/Contraindication: Risk Factor Score Per Nursin RFS Level Per Nursing on Admit: 3=High SOPIHA PIMENTEL MD Aug 26, 2017 8:50 am
--- NOTE | 2017-08-26 08:59 | Diagnostic Imaging Report ---
PATIENT HISTORY: Chest tube. TECHNIQUE: Single frontal view of the chest COMPARISON: 08/25/2017 FINDINGS: Lung volumes appear unchanged. There are airspace opacities in the right lung base, right midlung, left midlung, and left lung base. There is a left pleural effusion with loculated components, which appears mildly improved compared to the prior study. The left-sided chest tube is in stable position. Interstitial markings throughout the lungs bilaterally appear mildly increased. There is mild cardiomegaly. Fusion hardware of the cervical spine is unchanged. There is diffuse osteopenia. IMPRESSION: 1. Left-sided chest tube with mildly decreased at least partially loculated left pleural effusion. 2. Mildly increased airspace and interstitial opacities throughout the lungs bilaterally, may be due to edema or infection. 3. Cardiomegaly. Dictated by: Dictated on workstation # [id number]
[2017-08-26] MEDS ORDERED: KCL 20 MEQ TAB (K-DUR) PO ONE (09:00)
[2017-08-26] MEDS: NS IV 1000 ML 1,000 ML IV SCH ×2 (11:50→13:01)
--- NOTE | 2017-08-26 14:44 | Progress Note ---
Subjective Time Seen by Provider: 13:52 Subjective/Events-last exam Pt seen and examined. Pt denies SOB, minimal pain at chest tube site. No other complaints. Review of Systems General: No Chills, No Night Sweats Pulmonary: No Dyspnea, Cough Cardiovascular: No: Chest Pain Objective Exam Vital Signs Date Time Temp Pulse Resp B/P (MAP) Pulse Ox O2 Delivery O2 Flow Rate FiO2 08/26/17 12:15 96.6 87 18 140/71 (94) 97 Nasal Cannula 3.00 08/26/17 10:21 95 Nasal Cannula 3.00 08/26/17 10:00 96.8 87 16 134/69 (90) 96 Nasal Cannula 3.00 08/26/17 08:00 91 31 135/77 (96) 95 Nasal Cannula 2.00 08/26/17 08:00 Nasal Cannula 3.00 08/26/17 07:00 16 08/26/17 07:00 86 08/26/17 07:00 97 23 127/72 (90) 95 Nasal Cannula 2.00 08/26/17 06:00 85 14 121/70 (87) 99 Nasal Cannula 2.00 08/26/17 05:00 87 12 120/73 (89) 98 Nasal Cannula 2.00 08/26/17 04:00 93 Nasal Cannula 3.00 08/26/17 04:00 103 12 118/64 (82) 93 Nasal Cannula 2.00 08/26/17 03:00 90 27 122/69 (86) 97 Nasal Cannula 2.00 08/26/17 02:06 93 Nasal Cannula 3.00 08/26/17 02:00 99 34 126/61 (82) 99 Nasal Cannula 2.00 08/26/17 01:00 91 21 124/68 (86) 97 Nasal Cannula 2.00 08/26/17 01:00 91 08/26/17 00:00 93 Nasal Cannula 3.00 08/26/17 00:00 84 12 111/62 (78) 96 Nasal Cannula 2.00 08/25/17 23:10 22 08/25/17 23:00 87 14 107/62 (77) 99 Nasal Cannula 2.00 08/25/17 22:00 92 22 121/73 (89) 95 Nasal Cannula 2.00 08/25/17 21:00 91 15 123/73 (90) 97 Nasal Cannula 2.00 08/25/17 21:00 16 08/25/17 20:00 98 Nasal Cannula 3.00 08/25/17 20:00 93 13 114/67 (83) 95 Nasal Cannula 2.00 08/25/17 19:24 96 Nasal Cannula 3.00 08/25/17 19:00 16 08/25/17 19:00 90 13 113/66 (82) 97 Nasal Cannula 2.00 08/25/17 19:00 90 08/25/17 18:00 103 17 98 Nasal Cannula 2.00 08/25/17 17:00 87 17 113/64 (80) 98 Nasal Cannula 2.00 08/25/17 16:00 89 21 111/48 (69) 97 Nasal Cannula 2.00 08/25/17 16:00 98 Nasal Cannula 3.00 08/25/17 16:00 97.9 08/25/17 15:00 91 10 109/60 (76) 97 Nasal Cannula 2.00 I & O 08/26/17 06:59 Intake Total 816 ml Output Total 1275 ml Balance -459 ml Capillary Refill : General Appearance: No Apparent Distress, WD/WN HEENT: PERRL/EOMI, Moist Mucous Membranes Respiratory: No Respiratory Distress, Rhonci, Other (chest tube in to water seal, no signs of leak) Cardiovascular: Regular Rate, Rhythm, No Murmur Gastrointestinal: non tender, soft Extremity: No Calf Tenderness, No Pedal Edema Neurologic/Psychiatric: Alert, Oriented x3, Normal Mood/Affect Skin: Normal Color, Warm/Dry Results Lab Laboratory Tests 08/25/17 15:55: Hemoglobin 9.1L 08/26/17 03:25: Hemoglobin 9.1L, White Blood Count 2.3L, Red Blood Count 3.12L, Hematocrit 28L, Mean Corpuscular Volume 90, Mean Corpuscular Hemoglobin 29, Mean Corpuscular Hemoglobin Concent 32, Red Cell Distribution Width 14.5, Platelet Count 71L, Mean Platelet Volume 12.5H, Neutrophils (%) (Auto) 66, Lymphocytes (%) (Auto) 20 , Monocytes (%) (Auto) 9, Eosinophils (%) (Auto) 5, Basophils (%) (Auto) 0, Neutrophils # (Auto) 1.5L, Lymphocytes # (Auto) 0.5L, Monocytes # (Auto) 0.2, Eosinophils # (Auto) 0.1, Basophils # (Auto) 0.0, Sodium Level 138, Potassium Level 3.6, Chloride Level 108H, Carbon Dioxide Level 26, Anion Gap 4L, Blood Urea Nitrogen 8, Creatinine 0.60, Estimat Glomerular Filtration Rate > 60, BUN/ Creatinine Ratio 13, Glucose Level 89, Calcium Level 7.9L, Phosphorus Level 2.0L , Magnesium Level 1.9 Microbiology 08/20/17 Blood Culture - Preliminary, Resulted No growth 08/22/17 Gram Stain - Final, Complete 08/22/17 Anaerobic Culture - Final, Complete No growth 08/22/17 Surgical Culture - Final, Complete No growth 08/22/17 MRSA Screen - Final, Complete Assessment/Plan Assessment/Plan Assessment/Plan S/P left VATS converted to open mini thoracotomy with decortication and pleurodesis. Patient encouraged to use IS Pain control Protonix chest tube on water seal, will let Dr. Rodríguez D/Una in am continue abx Patient encourage to cough and deep breath Clinical Quality Measures DVT/VTE Risk/Contraindication: Risk Factor Score Per Nursin RFS Level Per Nursing on Admit: 3=High MARK WELLINGTON DO Aug 26, 2017 14:44
[2017-08-26] MEDS: morphine INJ 4 MG/ML 1 ML (VIAL/SYRINGE) IVP PRN (22:19)
[2017-08-27] MEDS: NS IV 1000 ML 1,000 ML IV SCH ×2 (00:11→15:09)
[2017-08-27] MEDS: RT-ALBUTEROL/IPRATROPIUM 3 ML (DUONEB) VIAL INH SCH ×5 (02:30→21:44)
[2017-08-27 03:32] LABS: BASOPHILS % (AUTO) 1 % (0-10); EOSINOPHILS # (AUTO) 0.2 10^3/uL (0.0-0.3); EOSINOPHILS % (AUTO) 7 % (0-10); HEMATOCRIT 30 % (35-52); HEMOGLOBIN 9.8 G/DL (11.5-16.0); LYMPHOCYTES # (AUTO) 0.7 X 10^3 (1.0-4.0); LYMPHOCYTES % (AUTO) 25 % (12-44); MEAN CORPUSCULAR HEMOGLOBIN 30 PG (25-34); MEAN CORPUSCULAR HGB CONC 33 G/DL (32-36); MEAN CORPUSCULAR VOLUME 89 FL (80-99); MEAN PLATELET VOLUME 11.9 FL (7.4-10.4); MONOCYTES # (AUTO) 0.3 X 10^3 (0.0-1.0); MONOCYTES % (AUTO) 9 % (0-12); NEUTROPHILS # (AUTO) 1.7 X 10^3 (1.8-7.8); NEUTROPHILS % (AUTO) 59 % (42-75); PLATELET COUNT 91 10^3/uL (130-400); RED CELL DISTRIBUTION WIDTH 14.1 % (10.0-14.5)
[2017-08-27 03:48] LABS: BUN/CREATININE RATIO 10; CALCIUM 8.2 MG/DL (8.5-10.1); CARBON DIOXIDE 24 MMOL/L (21-32); CHLORIDE 108 MMOL/L (98-107); CREATININE SERUM 0.63 MG/DL (0.60-1.30); GFR ESTIMATED > 60; GLUCOSE 85 MG/DL (70-105); POTASSIUM 3.9 MMOL/L (3.6-5.0); SODIUM 140 MMOL/L (135-145)
[2017-08-27 04:40] VITALS: BP 146/82
[2017-08-27] MEDS: PIPERACILLIN SODIUM/TAZOBACTAM 4.5 GM in D5W 100 ML IVPB 100 ML IV SCH ×2 (07:33→15:39)
--- NOTE | 2017-08-27 07:54 | Pulmonary Progress Note ---
Subjective Time Seen by Provider: 07:54 Exam Exam Vital Signs Date Time Temp Pulse Resp B/P (MAP) Pulse Ox O2 Delivery O2 Flow Rate FiO2 08/27/17 07:38 16 08/27/17 04:40 97.7 93 20 146/82 (103) 94 Nasal Cannula 3.00 08/27/17 03:12 92 Nasal Cannula 3.00 08/27/17 02:54 Nasal Cannula 3.00 08/27/17 02:30 95 Nasal Cannula 3.00 08/26/17 23:26 97.7 86 23 126/66 (86) 97 Nasal Cannula 3.00 08/26/17 21:17 97 Nasal Cannula 3.00 08/26/17 20:34 97.6 84 18 117/67 (84) 98 Nasal Cannula 3.00 08/26/17 20:20 Nasal Cannula 3.00 08/26/17 18:30 16 08/26/17 16:30 96.7 84 18 131/69 (89) 97 Nasal Cannula 3.00 08/26/17 15:40 97 Nasal Cannula 3.00 08/26/17 12:15 96.6 87 18 140/71 (94) 97 Nasal Cannula 3.00 08/26/17 10:21 95 Nasal Cannula 3.00 08/26/17 10:00 96.8 87 16 134/69 (90) 96 Nasal Cannula 3.00 08/26/17 08:00 91 31 135/77 (96) 95 Nasal Cannula 2.00 08/26/17 08:00 Nasal Cannula 3.00 I & O 08/27/17 07:00 Intake Total 3160 ml Output Total 1250 ml Balance 1910 ml General Appearance: No Apparent Distress, WD/WN HEENT: PERRL/EOMI, Moist Mucous Membranes Respiratory: No Respiratory Distress, Rhonci, Other (chest tube in to water seal, no signs of leak) Cardiovascular: Regular Rate, Rhythm, No Murmur Gastrointestinal: non tender, soft Extremity: No Calf Tenderness, No Pedal Edema Neurologic/Psychiatric: Alert, Oriented x3, Normal Mood/Affect Skin: Normal Color, Warm/Dry Results Lab Laboratory Tests 08/25/17 10:05 08/25/17 15:55 08/26/17 03:25 08/27/17 03:10 Assessment/Plan Assessment/Plan Pneumonia with left pleural effusion with complicated parapneumonic effusion s/ p decortication/pleurodesis -chest tube management per Dr. Rodríguez -Oxygen to keep sp02 >90 - ERNIE Hernandez DO Aug 27, 2017 07:54
--- NOTE | 2017-08-27 08:00 | Diagnostic Imaging Report ---
INDICATION: Chest tube. TECHNIQUE: Single view chest 3:12 AM. CORRELATION STUDY: 08/26/2017 FINDINGS: Left-sided chest tube remains in place, stable. No pneumothorax. Likely loculated pleural effusion and/or pleural thickening along the lateral and inferior aspect of the left hemithorax with consolidation of left mid and lower lung field generally stable. Right pleural effusion and consolidation of the right lung unchanged. Heart size enlarged. Vascular slightly less congested. IMPRESSION: 1. Left-sided chest tube stable. No appreciable pneumothorax. Likely loculated fluid along the left lateral and inferior chest wall as well as consolidation stable. 2. Right pleural effusion along with areas of consolidation of the right lung base unchanged. 3. Vascular less congested. Dictated by: Dictated on workstation # [id number]
[2017-08-27 08:30] VITALS: BP 134/83
[2017-08-27] MEDS: METOCLOPRAMIDE INJ 10 MG/2 ML (REGLAN) IV PRN (08:41)
[2017-08-27] MEDS: PANTOPRAZOLE 40 MG (PROTONIX) TAB PO SCH ×2 (08:41→21:19)
[2017-08-27] MEDS: SENNA W/DOCUSATE (SENOKOT S) TABLET PO SCH (08:41)
[2017-08-27] MEDS: LIDOCAINE (LIDODERM) 5% PATCH TOP SCH (08:42)
--- NOTE | 2017-08-27 09:59 | Physical Therapy Daily Note ---
PT Daily Note-Current Subjective Patient is in bed and reports she did not get up out of bed at all yesterday. PT educated patient on being proactive and asking nursing for OOB activity. Pain Numeric Pain Scale: 5-Moderate Pain Location: Left Location Body Site: Side Pain Description: Acute Mental Status Patient Orientation: Normal For Age Attachments: NG Tube, Oxygen, IV Transfers Functional [place] Measure 0=Not Assessed/NA 4=Minimal Assistance 1=Total Assistance 5=Supervision or Setup 2=Maximal Assistance 6=Modified [place] 3=Moderate Assistance 7=Complete IndependenceIRFPAI Quality Coding Scale 6 Independent with activity with or without an assistive device 5 Patient requires set up or clean up by helper. Patient completes activity by themselves 4 Supervision or touching assist (CGA). [place] provide cues , steadying assist 3 The helper provides less than half the effort to complete the activity 2 The helper provides more than half the effort to complete the activity 1 Dependent. The helper does all the effort to complete an activity 7 Patient refused to complete or attempt activity 9 The patient did not perform the activity before the current illness or injury 88 Not attempted due to Medical conditions or safety concerns Transfers (B, C, W/C) (FIM): 7 Scootin Rollin Supine to/from Sit: 7 Sit to/from Stand: 7 Weight Bearing Right Lower Extremity: Right Full Weight Bearing Left Lower Extremity: Left Full Weight Bearing Gait Training Gait (FIM): 6 Distance (FIM): 3=150 ft Distance: 225' Gait Level of Assist: 6 Gait Assistive Device: FWW slow, steady, functional/assist for IV and O2 only Assessment Patient requires time to complete all functional tasks due to attachments. Patient is able to toilet self at bed side commode. PT instructed nursing staff to ambulate PRN with patient and they voice understanding. PT Caustic Plant Worker Goals Caustic Plant Worker Goals PT Caustic Plant Worker Goals Time Frame: Aug 31, 2017 Transfers (B,C,W/C) (FIM): 7 Gait (FIM): 7 Gait distance (FIM): 3=150 ft Distance: >300' Gait Level of Assist: 7 Gait Assistive Device: None PT Plan Treatment/Plan Treatment Plan: Continue Plan of Care Treatment Plan: Education, Functional Activity [place], Functional Strength, Gait , Safety, Therapeutic Exercise Treatment Duration: Aug 31, 2017 Frequency: 5 times per week Estimated Hrs Per Day: .25 hour per day Patient and/or Family Agrees t: Yes Time/GCodes Time In: 851 Time Out: 915 Total Billed Treatment Time: 24 Total Billed Treatment 1 visit FA x 2 24 min HI ROBLEDO PT Aug 27, 2017 09:59
--- NOTE | 2017-08-27 11:55 | Occupational Ther Daily Note ---
OT Current Status-Daily Note Subjective Pt alert, sitting in recliner. Nrsg in room. Pt had just toileted and nrsg stated that pt is up ad zuly in room. Pt agreed to therapy. No c/o pain. Mental Status/Objective Patient Orientation: Person, Place, Time, Situation Functional [place] Measure 0=Not Assessed/NA 4=Minimal Assistance 1=Total Assistance 5=Supervision or Setup 2=Maximal Assistance 6=Modified [place] 3=Moderate Assistance 7=Complete [place] ADL-Treatment Pt was able to reach down to feet to pick items up of the floor in sitting and standing. No LOB during either task. Pt demonstrated ability to transfer to and from different surfaces by self using FWW, assist only for the multiple tubes attached to pt. Pt transferred into bed by self using bedrail. After therapy, pt lying in bed with call light/phone in reach. All needs met in room. OT Short Term Goals Short Term Goals 1=Demonstrate adherence to instructed precautions during ADL tasks. 2=Patient will verbalize/demonstrate understanding of assistive devices/ modifications for ADL. 3=Patient will improve strength/tolerance for activity to enable patient to perform ADL's. OT Car Dumper Operator Helper Goals Car Dumper Operator Helper Goals Time Frame: Sep 03, 2017 Grooming(FIM): 6 Upper Body Dressing(FIM): 6 Lower Body Dressing(FIM): 6 Toileting(FIM): 6 Toilet/Commode Transfer(FIM): 6 Additional Goals: 2-Verbalize Understanding, 3-ImproveStrength/Bhumika 1=Demonstrate adherence to instructed precautions during ADL tasks. 2=Patient will verbalize/demonstrate understanding of assistive devices/ modifications for ADL. 3=Patient will improve strength/tolerance for activity to enable patient to perform ADL's. OT Education/Plan Problem List/Assessment Pt to benefit from skilled OT while hospitalized to increase overall strength, activity tolerance and functional independence to allow safe discharge home. Discharge Recommendations Plan/Recommendations: Continue POC Treatment Plan/Plan of Care Patient would benefit from OT for education, treatment and training to promote independence in ADL's, mobility, safety and/or upper extremity function for ADL' s. Plan of Care: ADL Retraining, Functional Mobility, UE Funct Exercise/Act Treatment Duration: Sep 03, 2017 Frequency: 5 times per week Estimated Hrs Per Day: .25 hour per day Agreement: Yes Rehab Potential: Good Time/GCodes Start Time: 11:30 Stop Time: 11:40 Total Time Billed (hr/min): 20 Billed Treatment Time 1 visit-ADL 1 (20 min) DEMETRIO MERCADO Aug 27, 2017 11:55
[2017-08-27 12:30] VITALS: BP 134/82
--- NOTE | 2017-08-27 12:45 | Diagnostic Imaging Report ---
INDICATION: Chest tube removal. TIME OF EXAM: 12:13 PM Correlation is made with prior chest from earlier the same day. The large bore left chest tube has been removed. No pneumothorax is seen. Pleural fluid/pleural thickening along the left chest wall is stable. Generalized interstitial changes are unchanged. The heart size is stable. There are postop changes in the lower cervical spine. IMPRESSION: Left chest tube removal. No pneumothorax is detected. Dictated by: Dictated on workstation # [id number]
--- NOTE | 2017-08-27 14:41 | Progress Note-Hospitalist ---
Progress Note HPI/CC on Admission Pt is a 61yoCF with a PMH of HTN and tobacco abuse who presented to the ER with CC of SOB and cough and admitted for recurrent pneumonia. Progress Notes/Assess & Plan Date Seen 08/27/17 Time Seen by Provider: 14:38 Assessment & Plan The patient is a 61-year-old white female. She relates that she had a pneumonia in early July which was treated by oral antibiotics. For about a week she appeared to get better but then began having chest pain and increasing shortness of breath. Chest x-ray in the emergency room showed an unusual process in the left lower lung field. This was determined to be fluid and she had chest tube placement. This yielded significant pleural fluid. Cultures were negative. The chest tube was removed today. She reports that she is feeling much better with the exception of pleuritic chest pain with deep breath. She has been walking in the halls. Physical exam: She is alert and oriented. Lungs are clear to auscultation. There is some dullness in the left base. CV is regular. Abdomen is soft. Extremities show no pedal edema. Impression: Post pneumonia pleural effusion. Plan: Continue to increase activity. Note: The patient exhibits granulocytopenia with a normal differential. It is noted from examination of her initial CT scan at admission that she has a very large spleen. MONIKA BOX MD Aug 27, 2017 14:41
[2017-08-27 16:00] VITALS: BP 136/77
--- NOTE | 2017-08-27 16:13 | Progress Note ---
Subjective Date Seen by Provider: Aug 27, 2017 Time Seen by Provider: 11:29 Subjective/Events-last exam Patient states she's doing well. She states her breathing is getting slightly better. She does have a little bit productive cough. She is some left-sided chest pain but is getting better from surgical pain. Patient is trying to increase activity. She denies any nausea vomiting and chills. Patient hemoglobin stable. Objective Exam Vital Signs Date Time Temp Pulse Resp B/P (MAP) Pulse Ox O2 Delivery O2 Flow Rate FiO2 08/27/17 15:44 97 Nasal Cannula 2.00 08/27/17 12:30 98.4 88 16 134/82 (99) 98 Nasal Cannula 2.00 08/27/17 09:59 97 Nasal Cannula 2.00 08/27/17 08:30 97.1 81 18 134/83 (100) 95 Nasal Cannula 2.00 08/27/17 08:00 97 Nasal Cannula 3.00 08/27/17 07:38 16 08/27/17 04:40 97.7 93 20 146/82 (103) 94 Nasal Cannula 3.00 08/27/17 03:12 92 Nasal Cannula 3.00 08/27/17 02:54 Nasal Cannula 3.00 08/27/17 02:30 95 Nasal Cannula 3.00 08/26/17 23:26 97.7 86 23 126/66 (86) 97 Nasal Cannula 3.00 08/26/17 21:17 97 Nasal Cannula 3.00 08/26/17 20:34 97.6 84 18 117/67 (84) 98 Nasal Cannula 3.00 08/26/17 20:20 Nasal Cannula 3.00 08/26/17 18:30 16 08/26/17 16:30 96.7 84 18 131/69 (89) 97 Nasal Cannula 3.00 I & O 08/27/17 07:00 Intake Total 3160 ml Output Total 1250 ml Balance 1910 ml Capillary Refill : General Appearance: No Apparent Distress, WD/WN HEENT: PERRL/EOMI, Moist Mucous Membranes Respiratory: No Respiratory Distress, Rhonci, Other (chest tube in to water seal, no signs of leak) Cardiovascular: Regular Rate, Rhythm, No Murmur Gastrointestinal: non tender, soft Extremity: No Calf Tenderness, No Pedal Edema Neurologic/Psychiatric: Alert, Oriented x3, Normal Mood/Affect Skin: Normal Color, Warm/Dry Results Lab Laboratory Tests 08/27/17 03:10: White Blood Count 3.0L, Red Blood Count 3.30L, Hemoglobin 9.8L, Hematocrit 30L, Mean Corpuscular Volume 89, Mean Corpuscular Hemoglobin 30, Mean Corpuscular Hemoglobin Concent 33, Red Cell Distribution Width 14.1, Platelet Count 91L, Mean Platelet Volume 11.9H, Neutrophils (%) (Auto) 59, Lymphocytes (%) (Auto) 25 , Monocytes (%) (Auto) 9, Eosinophils (%) (Auto) 7, Basophils (%) (Auto) 1, Neutrophils # (Auto) 1.7L, Lymphocytes # (Auto) 0.7L, Monocytes # (Auto) 0.3, Eosinophils # (Auto) 0.2, Basophils # (Auto) 0.0, Sodium Level 140, Potassium Level 3.9, Chloride Level 108H, Carbon Dioxide Level 24, Anion Gap 8, Blood Urea Nitrogen 6L, Creatinine 0.63, Estimat Glomerular Filtration Rate > 60, BUN/ Creatinine Ratio 10, Glucose Level 85, Calcium Level 8.2L Microbiology 08/20/17 Blood Culture - Final, Complete No growth 08/22/17 Gram Stain - Final, Complete 08/22/17 Anaerobic Culture - Final, Complete No growth 08/22/17 Surgical Culture - Final, Complete No growth 08/22/17 MRSA Screen - Final, Complete Assessment/Plan Assessment/Plan Assessment/Plan S/P left VATS converted to open mini thoracotomy with decortication and pleurodesis. Patient encouraged to use IS Pain control Protonix chest tube DC'd today with follow-up chest x-ray continue abx Patient encourage to cough and deep breath Clinical Quality Measures DVT/VTE Risk/Contraindication: Risk Factor Score Per Nursin RFS Level Per Nursing on Admit: 3=High BEV TORRES DO Aug 27, 2017 16:13
[2017-08-27 20:00] VITALS: BP 144/81
[2017-08-28 00:06] VITALS: BP 128/67
[2017-08-28] MEDS: RT-ALBUTEROL/IPRATROPIUM 3 ML (DUONEB) VIAL INH SCH ×4 (02:29→21:21)
[2017-08-28] MEDS: PIPERACILLIN SODIUM/TAZOBACTAM 4.5 GM in D5W 100 ML IVPB 100 ML IV SCH ×4 (02:54→22:02)
[2017-08-28] MEDS: NS IV 1000 ML 1,000 ML IV SCH ×2 (03:51→15:56)
[2017-08-28 04:28] VITALS: BP 132/67
--- NOTE | 2017-08-28 05:16 | Pulmonary Progress Note ---
Subjective Time Seen by Provider: 05:16 Subjective/Events-last exam Chest tube has been d/c'd. Pt sleeping no complications noted. Exam Exam Vital Signs Date Time Temp Pulse Resp B/P (MAP) Pulse Ox O2 Delivery O2 Flow Rate FiO2 08/28/17 04:28 98.0 90 17 132/67 (88) 93 Nasal Cannula 2.00 08/28/17 02:29 95 Nasal Cannula 2.00 08/28/17 00:06 98.3 96 17 128/67 (87) 94 Nasal Cannula 2.00 08/27/17 21:44 94 Nasal Cannula 2.00 08/27/17 20:00 Nasal Cannula 3.00 08/27/17 20:00 100.0 96 18 144/81 (102) 93 Nasal Cannula 2.00 08/27/17 19:10 95 Nasal Cannula 2.00 08/27/17 18:07 20 08/27/17 16:00 99.1 88 22 136/77 (96) 97 Nasal Cannula 2.00 08/27/17 15:44 97 Nasal Cannula 2.00 08/27/17 12:30 98.4 88 16 134/82 (99) 98 Nasal Cannula 2.00 08/27/17 09:59 97 Nasal Cannula 2.00 08/27/17 08:30 97.1 81 18 134/83 (100) 95 Nasal Cannula 2.00 08/27/17 08:00 97 Nasal Cannula 3.00 08/27/17 07:38 16 I & O 08/28/17 07:00 Intake Total 1580 ml Output Total 1975 ml Balance -395 ml General Appearance: No Apparent Distress, WD/WN HEENT: PERRL/EOMI, Moist Mucous Membranes Respiratory: No Respiratory Distress, Rhonci, Other (chest tube in to water seal, no signs of leak) Cardiovascular: Regular Rate, Rhythm, No Murmur Gastrointestinal: non tender, soft Extremity: No Calf Tenderness, No Pedal Edema Neurologic/Psychiatric: Alert, Oriented x3, Normal Mood/Affect Skin: Normal Color, Warm/Dry Results Lab Laboratory Tests 08/27/17 03:10 Assessment/Plan Assessment/Plan Pneumonia with left pleural effusion with complicated parapneumonic effusion s/ p decortication/pleurodesis -- tm 100.1 -chest tube has been d/c'd -Pt will need to be evaluated for home oxygen prior to discharge -Oxygen to keep sp02 >90 - Zosyn -Cultures have been negative -Continue to monitor and continue Zosyn for now. If pt continues to spike fever will need to switch to Merrem. 233 ERNIE HOLMAN DO Aug 28, 2017 05:16
[2017-08-28 05:40] LABS: BASOPHILS % (AUTO) 1 % (0-10); EOSINOPHILS # (AUTO) 0.2 10^3/uL (0.0-0.3); EOSINOPHILS % (AUTO) 6 % (0-10); HEMATOCRIT 29 % (35-52); HEMOGLOBIN 9.6 G/DL (11.5-16.0); LYMPHOCYTES # (AUTO) 0.7 X 10^3 (1.0-4.0); LYMPHOCYTES % (AUTO) 28 % (12-44); MEAN CORPUSCULAR HEMOGLOBIN 29 PG (25-34); MEAN CORPUSCULAR HGB CONC 33 G/DL (32-36); MEAN CORPUSCULAR VOLUME 90 FL (80-99); MEAN PLATELET VOLUME 12.2 FL (7.4-10.4); MONOCYTES # (AUTO) 0.3 X 10^3 (0.0-1.0); MONOCYTES % (AUTO) 14 % (0-12); NEUTROPHILS # (AUTO) 1.3 X 10^3 (1.8-7.8); NEUTROPHILS % (AUTO) 52 % (42-75); PLATELET COUNT 82 10^3/uL (130-400); RED BLOOD COUNT 3.26 10^6/uL (4.35-5.85); RED CELL DISTRIBUTION WIDTH 14.4 % (10.0-14.5); WHITE BLOOD COUNT 2.5 10^3/uL (4.3-11.0)
[2017-08-28 05:48] LABS: BUN/CREATININE RATIO 7; CARBON DIOXIDE 26 MMOL/L (21-32); CHLORIDE 109 MMOL/L (98-107); CREATININE SERUM 0.56 MG/DL (0.60-1.30); GFR ESTIMATED > 60; GLUCOSE 90 MG/DL (70-105); POTASSIUM 3.6 MMOL/L (3.6-5.0); SODIUM 141 MMOL/L (135-145)
--- NOTE | 2017-08-28 07:50 | Diagnostic Imaging Report ---
INDICATION: Cough. COMPARISON: 08/27/2017. FINDINGS: Bilateral interstitial and alveolar opacities have not changed. Small bilateral pleural effusions are stable. No pneumothorax. Stable cardio megaly. IMPRESSION: No change in exam from prior day. Dictated by: Dictated on workstation # [id number]
[2017-08-28 08:00] VITALS: BP 139/73
[2017-08-28] MEDS: PANTOPRAZOLE 40 MG (PROTONIX) TAB PO SCH ×2 (09:55→21:16)
[2017-08-28] MEDS: SENNA W/DOCUSATE (SENOKOT S) TABLET PO SCH (09:55)
[2017-08-28] MEDS: LIDOCAINE (LIDODERM) 5% PATCH TOP SCH (09:55)
[2017-08-28 11:48] VITALS: BP 148/74
--- NOTE | 2017-08-28 11:53 | Occupational Ther Daily Note ---
OT Current Status-Daily Note Subjective Pt in bed, agrees to treatment. Pt states she is feeling better, but is tired from waking up early this morning. Mental Status/Objective Functional [place] Measure 0=Not Assessed/NA 4=Minimal Assistance 1=Total Assistance 5=Supervision or Setup 2=Maximal Assistance 6=Modified [place] 3=Moderate Assistance 7=Complete [place] Attachments: IV, Oxygen ADL-Treatment Pt supine to sit without assistance. Pt demonstrates ability to doff/don socks without assistance while seated EOB. Sit to stand independently. Pt transferred to [facility] with modified independence. Pt able to complete toileting hygiene and clothing management with modified independence. Pt back to bed independently. Pt resting in bed with needs met after session. Toileting (FIM): 6 Toilet/Commode Transfer (FIM): 6 OT Short Term Goals Short Term Goals 1=Demonstrate adherence to instructed precautions during ADL tasks. 2=Patient will verbalize/demonstrate understanding of assistive devices/ modifications for ADL. 3=Patient will improve strength/tolerance for activity to enable patient to perform ADL's. OT Hvac Instructor Goals Hvac Instructor Goals Time Frame: Sep 03, 2017 Grooming(FIM): 6 Upper Body Dressing(FIM): 6 Lower Body Dressing(FIM): 6 Toileting(FIM): 6 Toilet/Commode Transfer(FIM): 6 Additional Goals: 2-Verbalize Understanding, 3-ImproveStrength/Bhumika 1=Demonstrate adherence to instructed precautions during ADL tasks. 2=Patient will verbalize/demonstrate understanding of assistive devices/ modifications for ADL. 3=Patient will improve strength/tolerance for activity to enable patient to perform ADL's. OT Education/Plan Problem List/Assessment Pt to benefit from skilled OT while hospitalized to increase overall strength, activity tolerance and functional independence to allow safe discharge home. Discharge Recommendations Plan/Recommendations: Continue POC Treatment Plan/Plan of Care Patient would benefit from OT for education, treatment and training to promote independence in ADL's, mobility, safety and/or upper extremity function for ADL' s. Plan of Care: ADL Retraining, Functional Mobility, UE Funct Exercise/Act Treatment Duration: Sep 03, 2017 Frequency: 5 times per week Estimated Hrs Per Day: .25 hour per day Agreement: Yes Rehab Potential: Good Time/GCodes Start Time: 10:57 Stop Time: 11:11 Total Time Billed (hr/min): 14 Billed Treatment Time 1 visit, ADL(14minutes) BETH DOUGLAS OT Aug 28, 2017 11:53
--- NOTE | 2017-08-28 13:19 | Progress Note ---
Subjective Date Seen by Provider: Aug 28, 2017 Time Seen by Provider: 11:23 Subjective/Events-last exam Patient breathing still a little better. Feels better since chest tube removed. Chest x ray stable. Hgb stable. Denies n/v fever sweats chills. Pain has improved. Using IS. Objective Exam Vital Signs Date Time Temp Pulse Resp B/P (MAP) Pulse Ox O2 Delivery O2 Flow Rate FiO2 08/28/17 11:48 98.0 90 18 148/74 (98) 92 Room Air 08/28/17 10:21 96 Nasal Cannula 2.00 08/28/17 08:00 96.0 85 18 139/73 (95) 92 Room Air 08/28/17 08:00 96 Nasal Cannula 08/28/17 06:00 20 08/28/17 04:28 98.0 90 17 132/67 (88) 93 Nasal Cannula 2.00 08/28/17 02:29 95 Nasal Cannula 2.00 08/28/17 00:06 98.3 96 17 128/67 (87) 94 Nasal Cannula 2.00 08/27/17 21:44 94 Nasal Cannula 2.00 08/27/17 20:00 Nasal Cannula 3.00 08/27/17 20:00 100.0 96 18 144/81 (102) 93 Nasal Cannula 2.00 08/27/17 19:10 95 Nasal Cannula 2.00 08/27/17 18:07 20 08/27/17 16:00 99.1 88 22 136/77 (96) 97 Nasal Cannula 2.00 08/27/17 15:44 97 Nasal Cannula 2.00 I & O 08/28/17 07:00 Intake Total 2200 ml Output Total 3975 ml Balance -1775 ml Capillary Refill : General Appearance: No Apparent Distress, WD/WN HEENT: PERRL/EOMI, Moist Mucous Membranes Respiratory: No Accessory Muscle Use, No Respiratory Distress, Rhonci Cardiovascular: Regular Rate, Rhythm, No Murmur Gastrointestinal: non tender, soft Extremity: No Calf Tenderness, No Pedal Edema Neurologic/Psychiatric: Alert, Oriented x3, Normal Mood/Affect Skin: Normal Color, Warm/Dry Results Lab Laboratory Tests 08/28/17 05:05: White Blood Count 2.5L, Red Blood Count 3.26L, Hemoglobin 9.6L, Hematocrit 29L, Mean Corpuscular Volume 90, Mean Corpuscular Hemoglobin 29, Mean Corpuscular Hemoglobin Concent 33, Red Cell Distribution Width 14.4, Platelet Count 82L, Mean Platelet Volume 12.2H, Neutrophils (%) (Auto) 52, Lymphocytes (%) (Auto) 28 , Monocytes (%) (Auto) 14H, Eosinophils (%) (Auto) 6, Basophils (%) (Auto) 1, Neutrophils # (Auto) 1.3L, Lymphocytes # (Auto) 0.7L, Monocytes # (Auto) 0.3, Eosinophils # (Auto) 0.2, Basophils # (Auto) 0.0, Sodium Level 141, Potassium Level 3.6, Chloride Level 109H, Carbon Dioxide Level 26, Anion Gap 6, Blood Urea Nitrogen 4L, Creatinine 0.56L, Estimat Glomerular Filtration Rate > 60, BUN /Creatinine Ratio 7, Glucose Level 90, Calcium Level 8.0L Microbiology 08/20/17 Blood Culture - Final, Complete No growth 08/22/17 Gram Stain - Final, Complete 08/22/17 Anaerobic Culture - Final, Complete No growth 08/22/17 Surgical Culture - Final, Complete No growth 08/22/17 MRSA Screen - Final, Complete Assessment/Plan Assessment/Plan Assessment/Plan S/P left VATS converted to open mini thoracotomy with decortication and pleurodesis. Patient encouraged to use IS Pain control Protonix chest tube DC'd chest x ray stable continue medical management Patient encourage to cough and deep breath Discussed with Dr. Soria. I will sign off at this time and he'll call if needed. Patient will follow up with me in about 2 weeks. Clinical Quality Measures DVT/VTE Risk/Contraindication: Risk Factor Score Per Nursin RFS Level Per Nursing on Admit: 3=High BEV TORRES DO Aug 28, 2017 13:19
--- NOTE | 2017-08-28 14:05 | Physical Therapy Daily Note ---
PT Daily Note-Current Subjective Agreeable to PT. Reports she just toileted. Mental Status Patient Orientation: Person, Place, Time, Situation Attachments: Oxygen, IV In situ post treatment. Pt's oxygen was turned off when PT arrived. Ambulated without oxygen. Her sats did drop (RT present). Oxygen reapplied at 2L/min. Transfers Functional [place] Measure 0=Not Assessed/NA 4=Minimal Assistance 1=Total Assistance 5=Supervision or Setup 2=Maximal Assistance 6=Modified [place] 3=Moderate Assistance 7=Complete IndependenceIRFPAI Quality Coding Scale 6 Independent with activity with or without an assistive device 5 Patient requires set up or clean up by helper. Patient completes activity by themselves 4 Supervision or touching assist (CGA). [place] provide cues , steadying assist 3 The helper provides less than half the effort to complete the activity 2 The helper provides more than half the effort to complete the activity 1 Dependent. The helper does all the effort to complete an activity 7 Patient refused to complete or attempt activity 9 The patient did not perform the activity before the current illness or injury 88 Not attempted due to Medical conditions or safety concerns Transfers (B, C, W/C) (FIM): 5 SBA with all functional transfers. Requires assist primarily for management of her IV and oxygen tubing. Weight Bearing Right Lower Extremity: Right Full Weight Bearing Left Lower Extremity: Left Full Weight Bearing Gait Training Gait (FIM): 5 Distance (FIM): 3=150 ft Distance: 200 ft Gait Assistive Device: FWW Slow steady gait that is safe and without balance loss. She had 1 standing rest break. Assessment Current Status: Good Progress Oxygen sats do drop with ambulation. Safe and steady with gait and transfers. PT Baseboard Heating Installer Goals Correction Goals PT Correction Goals Time Frame: Aug 31, 2017 Transfers (B,C,W/C) (FIM): 7 Gait (FIM): 7 Gait distance (FIM): 3=150 ft Distance: >300' Gait Level of Assist: 7 Gait Assistive Device: None PT Plan Problem List Problem List: Activity Tolerance, Functional Strength, Safety Treatment/Plan Treatment Plan: Continue Plan of Care Treatment Plan: Education, Functional Activity Bhumika, Functional Strength, Gait , Safety, Therapeutic Exercise Treatment Duration: Aug 31, 2017 Frequency: 5 times per week Estimated Hrs Per Day: .25 hour per day Patient and/or Family Agrees t: Yes Safety Risks/Education Patient Education: Safety Issues Teaching Recipient: Patient Teaching Methods: Discussion Response to Teaching: Reinforcement Needed Time/GCodes Time In: 1325 Time Out: 1345 Total Billed Treatment Time: 20 Total Billed Treatment visit GT 20 DEMETRIO WILKINS PT Aug 28, 2017 14:05
--- NOTE | 2017-08-28 14:12 | Progress Note-Hospitalist ---
Progress Note HPI/CC on Admission Pt is a 61yoCF with a PMH of HTN and tobacco abuse who presented to the ER with CC of SOB and cough and admitted for recurrent pneumonia. Progress Notes/Assess & Plan Date Seen 08/28/17 Time Seen by Provider: 14:07 Assessment & Plan The patient is a 61-year-old white female. She relates that she had a pneumonia in early July which was treated by oral antibiotics. For about a week she appeared to get better but then began having chest pain and increasing shortness of breath. Chest x-ray in the emergency room showed an unusual process in the left lower lung field. This was determined to be fluid and she had chest tube placement. This yielded significant pleural fluid. Cultures were negative. The chest tube was removed today. She reports that she is feeling much better with the exception of pleuritic chest pain with deep breath. She has been walking in the halls. Physical exam: She is alert and oriented. Lungs are clear to auscultation. There is some dullness in the left base. CV is regular. Abdomen is soft. Extremities show no pedal edema. Impression: Post pneumonia pleural effusion. Plan: Continue to increase activity. Note: The patient exhibits granulocytopenia with a normal differential. It is noted from examination of her initial CT scan at admission that she has a very large spleen. MONIKA BOX MD Aug 28, 2017 14:12
[2017-08-28 16:00] VITALS: BP 147/89
[2017-08-28 19:37] VITALS: BP 150/88
--- NOTE | 2017-08-28 22:46 | CONSULTATION REPORT ---
DATE OF SERVICE: 08/28/2017 REFERRING PHYSICIAN: . The patient is admitted to room 420. IMPRESSION: 1. A 61-year-old female admitted with a recurrent pneumonia and left loculated pleural effusion/empyema. 2. Pancytopenia and splenomegaly. 3. Previous history of thrombocytopenia of undetermined etiology. RECOMMENDATIONS: 1. Obtain CBC with manual differential tomorrow along with a CMP and LDH level. I will obtain a C-reactive protein and sed rate. 2. Continue management of pneumonia/empyema, as you are doing with antibiotics. 3. I would like to monitor the blood counts serially and if this does not improve in the next few weeks, patient will need a bone marrow evaluation to rule out primary marrow problems. HISTORY OF PRESENT ILLNESS: The patient is a 61-year-old female admitted to the hospital with recurrent pneumonia since last one month. She was initially treated with a course of antibiotics in early July with a slight improvement of symptoms but with a recurrence a week later. She was treated with another course of antibiotics and steroids with improvement until in late July/early August, she presented again with left-sided pleuritic chest pain. She was noted to have a large effusion and admitted to the hospital. She was started on broad broad-spectrum antibiotics and taken to surgery for VATS to open mini thoracotomy with decortication and pleurodesis. The chest tube has been discontinued and she is improving from this. During the hospitalization, the patient has become pancytopenic and hematology consultation was requested. PAST MEDICAL HISTORY: Unremarkable except for the infections recently. She also gave history of influenza in 05/2017. Prior to that, she had osteoarthritis requiring back surgery in 2014, followed by left total knee replacement in 2016. She did have a thrombocytopenia at that time, but went through the surgery without any problem. No other medical problems. PAST SURGICAL HISTORY: Include a back surgery in 2015 and left total knee replacement in 2016. She has had a 29 years ago. A tonsillectomy and adenoidectomy in childhood. SOCIAL HISTORY: The patient is and lives in [place], [place]. She has a son aged 29 years. 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 She gives more than [id number] history of tobacco use and is currently smoking up to 15 cigarettes daily. No alcohol or other recreational drug use. FAMILY HISTORY: Significant for several maternal aunts with various malignancies. She has had several maternal aunts and an uncle with various malignancies including lung cancer, breast cancer, kidney cancer, probable lymphoma and throat cancer. She does not know the details of the paternal side of family. PHYSICAL EXAMINATION: GENERAL: An elderly female, obese, awake and oriented in mild discomfort due to left-sided chest wall pain. HEENT: Normocephalic, extraocular muscles intact, conjunctivae pink, oral mucosa moist. NECK: Supple, with no JVD. No cervical, supraclavicular or axillary lymphadenopathy palpable. CHEST: Chest was symmetrical. A dressing in the left lower chest wall from the mini thoracotomy. LUNGS: Diminished breath sounds in the left base with the rest of the lung nieves clear to auscultation without wheezes or rales. CARDIOVASCULAR: Regular in rate and rhythm. No murmurs or gallops heard. ABDOMEN: Obese, soft, nontender with no hepatosplenomegaly or other masses palpable. EXTREMITIES: Showed no edema. NEUROLOGIC: Grossly intact without focal motor deficits. LABORATORY DATA: Reviewed lab work done today and CBC showed white count of 2.5, hemoglobin 9.6 with MCV 90 and platelet count of 82,000. Neutrophil count was 1.3 and lymphocyte count was 0.7. CBC done at the time of admission on 08/20/2017 showed WBC 6.2, hemoglobin 12.7, platelet count 88,000 with neutrophil count 4.0 and lymphocyte count 1.2. CBC done in 2016 had shown platelet count of 110,000. Chemistry panel done at the time of admission showed normal electrolytes. BUN was 10 and creatinine 0.7 with GFR more than 60 mL per minute. Liver function studies were within normal limits. CT scan of the chest done at the time of admission showed large amount of left pleural fluid, which may be loculated. The analysis of left pleural fluid following thoracentesis showed no cytologically malignant cells identified. Few reactive mesothelial cells and numerous mixed acute and chronic inflammatory cells were seen. Resection of a soft tissue from the left pleural space showed fibrin and clotted blood with entrapped inflammatory cells consistent with history of empyema. Thank you for allowing me to participate in this patient's care. I will follow the patient with you and make appropriate recommendations. Job ID: [id number] DocumentID: [id number] Dictated Date: 08/28/2017 18:14:42 Child Care Giver Date: 08/28/2017 22:45:32 Dictated By: CHETAN STAHL MD
[2017-08-29] VITALS: BP 136/83
[2017-08-29] MEDS: RT-ALBUTEROL/IPRATROPIUM 3 ML (DUONEB) VIAL INH SCH ×4 (02:31→19:09)
[2017-08-29 03:45] LABS: BASOPHILS % (AUTO) 1 % (0-10); EOSINOPHILS # (AUTO) 0.2 10^3/uL (0.0-0.3); EOSINOPHILS % (AUTO) 6 % (0-10); HEMATOCRIT 30 % (35-52); HEMOGLOBIN 9.7 G/DL (11.5-16.0); LYMPHOCYTES % (AUTO) 29 % (12-44); MEAN CORPUSCULAR HEMOGLOBIN 29 PG (25-34); MEAN CORPUSCULAR HGB CONC 33 G/DL (32-36); MEAN CORPUSCULAR VOLUME 89 FL (80-99); MEAN PLATELET VOLUME 12.4 FL (7.4-10.4); MONOCYTES # (AUTO) 0.4 X 10^3 (0.0-1.0); MONOCYTES % (AUTO) 13 % (0-12); NEUTROPHILS # (AUTO) 1.7 X 10^3 (1.8-7.8); NEUTROPHILS % (AUTO) 51 % (42-75); PLATELET COUNT 98 10^3/uL (130-400); RED BLOOD COUNT 3.34 10^6/uL (4.35-5.85); RED CELL DISTRIBUTION WIDTH 14.5 % (10.0-14.5); WHITE BLOOD COUNT 3.3 10^3/uL (4.3-11.0)
[2017-08-29 04:00] VITALS: BP 136/81
[2017-08-29 04:10] LABS: ALANINE AMINOTRANSFERASE 9 U/L (0-55); ALBUMIN 2.7 GM/DL (3.2-4.5); ALKALINE PHOSPHATASE 112 U/L (40-136); BUN/CREATININE RATIO 6; CALCIUM 8.1 MG/DL (8.5-10.1); CARBON DIOXIDE 25 MMOL/L (21-32); CHLORIDE 108 MMOL/L (98-107); CREATININE SERUM 0.64 MG/DL (0.60-1.30); GFR ESTIMATED > 60; GLUCOSE 99 MG/DL (70-105); POTASSIUM 3.5 MMOL/L (3.6-5.0); SODIUM 140 MMOL/L (135-145); TOTAL PROTEIN 5.5 GM/DL (6.4-8.2)
[2017-08-29 04:14] LABS: BAND NEUTROPHILS 2 %; NEUTROPHILS % (MANUAL) 54 %
[2017-08-29 04:15] LABS: EOSINOPHILS % (MANUAL) 3 %; LYMPHOCYTES % (MANUAL) 34 %; MONOCYTES % (MANUAL) 7 %; RBC MORPH NORMAL
[2017-08-29 04:16] LABS: ERYTHROCYTE SEDIMENTATION RATE 59 MM/HR (0-30)
--- NOTE | 2017-08-29 05:25 | Pulmonary Progress Note ---
Subjective Time Seen by Provider: 05:25 Exam Exam Vital Signs Date Time Temp Pulse Resp B/P (MAP) Pulse Ox O2 Delivery O2 Flow Rate FiO2 08/29/17 04:00 99.4 86 24 136/81 (99) 96 Room Air 08/29/17 01:49 96 Nasal Cannula 2.00 08/29/17 00:00 99.4 93 22 136/83 (100) 94 Room Air 08/28/17 21:22 96 Nasal Cannula 2.00 08/28/17 20:00 Nasal Cannula 3.00 08/28/17 19:37 99.2 87 24 150/88 (108) 95 Room Air 08/28/17 19:34 94 Nasal Cannula 2.00 08/28/17 18:00 22 08/28/17 16:14 95 Nasal Cannula 2.00 08/28/17 16:00 99.4 84 22 147/89 (108) 97 Room Air 08/28/17 11:48 98.0 90 18 148/74 (98) 92 Room Air 08/28/17 10:21 96 Nasal Cannula 2.00 08/28/17 08:00 96.0 85 18 139/73 (95) 92 Room Air 08/28/17 08:00 96 Nasal Cannula 08/28/17 06:00 20 I & O 08/29/17 07:00 Intake Total 1320 ml Output Total 2500 ml Balance -1180 ml General Appearance: No Apparent Distress, WD/WN HEENT: PERRL/EOMI, Moist Mucous Membranes Respiratory: No Accessory Muscle Use, No Respiratory Distress, Rhonci Cardiovascular: Regular Rate, Rhythm, No Murmur Gastrointestinal: non tender, soft Extremity: No Calf Tenderness, No Pedal Edema Neurologic/Psychiatric: Alert, Oriented x3, Normal Mood/Affect Skin: Normal Color, Warm/Dry Results Lab Laboratory Tests 08/28/17 05:05 08/29/17 03:25 Assessment/Plan Assessment/Plan Pneumonia with emphyema s/p decortication/pleurodesis -chest tube has been d/c'd -Pt will need to be evaluated for home oxygen prior to discharge -Oxygen to keep sp02 >90 - Zosyn -Cultures have been negative -Zosyn Pancytopenia -heme following 232 ERNIE HOLMAN DO Aug 29, 2017 05:25
[2017-08-29] MEDS: NS IV 1000 ML 1,000 ML IV SCH (05:55)
[2017-08-29] MEDS: PIPERACILLIN SODIUM/TAZOBACTAM 4.5 GM in D5W 100 ML IVPB 100 ML IV SCH ×3 (06:05→22:49)
--- NOTE | 2017-08-29 07:49 | Diagnostic Imaging Report ---
INDICATION: Pneumonia. TECHNIQUE: Single frontal view of the chest. COMPARISON: 08/28/2017 FINDINGS: There are small bilateral pleural effusions, left greater than right, with a loculated component on the left. A calcified granuloma is seen in the right lung. There is diffuse interstitial opacities throughout the lungs bilaterally. There is moderate cardiomegaly which appears stable. Bibasilar airspace opacities are seen. No pneumothorax is present. IMPRESSION: 1. Diffuse interstitial opacities and bibasilar airspace opacities, may be due to infection or edema appear stable. 2. Bilateral pleural effusions, left greater than right, with a loculated component on the left. This appears stable since the prior study. 3. Stable moderate cardiomegaly. Dictated by: Dictated on workstation # [id number]
[2017-08-29 08:00] VITALS: BP 148/72
[2017-08-29] MEDS: PANTOPRAZOLE 40 MG (PROTONIX) TAB PO SCH ×2 (09:17→20:10)
[2017-08-29] MEDS: SENNA W/DOCUSATE (SENOKOT S) TABLET PO SCH (09:17)
[2017-08-29] MEDS: LIDOCAINE (LIDODERM) 5% PATCH TOP SCH (09:17)
--- NOTE | 2017-08-29 11:05 | Progress Note-Hospitalist ---
Subjective HPI/CC On Admission Date Seen by Provider: Aug 29, 2017 Time Seen by Provider: 10:45 Pt is a 61yoCF with a PMH of HTN and tobacco abuse who presented to the ER with CC of SOB and cough and admitted for recurrent pneumonia. Subjective/Events-last exam Patient is doing overall improved since chest tube was removed out of left chest wall by Dr. Rodríguez Patient denies any significant pain except for deep breaths on the de did a chest tube removal I did speak with Dr. Lopez and he rec weekly CBC and likely she will need a bone marrow biopsy. I know the patient since knee replacement at [facility] when she had stable thrombocytopenia and she recognized me when I took care of her at [place]. 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 Smoking cessation counseled Checked meds and labs and reviewed records Review of Systems Cardiovascular: Orthopnea Objective Exam Vital Signs Vital Signs Date Time Temp Pulse Resp B/P (MAP) Pulse Ox O2 Delivery O2 Flow Rate FiO2 08/23/17 00:00 Nasal Cannula 5.00 08/23/17 00:00 98.9 08/23/17 00:00 96 19 121/74 (90) 97 Capillary Refill : General Appearance: No Apparent Distress, WD/WN, Chronically ill, Obese Respiratory: Lungs Clear, Normal Breath Sounds, Decreased Breath Sounds Cardiovascular: Regular Rate, Rhythm, No Edema Neurologic/Psychiatric: Alert, Oriented x3, No Motor/Sensory Deficits, Normal Mood/Affect Skin: Normal Color, Warm/Dry Lymphatic: No Adenopathy Results/Procedures Lab Laboratory Tests 08/29/17 03:25 Patient resulted labs reviewed. 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 for bowels Home O2 evaluation DC tomorrow CBC weekly I will see patient in clinic at [facility] on Sunday Diagnosis/Problems Diagnosis/Problems (1) Empyema lung Status: Acute (2) CAP (community acquired pneumonia) Status: Acute Qualifiers: Laterality: left Lung location: lower lobe of lung Qualified Codes: J18.1 - Lobar pneumonia, unspecified organism (3) Essential (primary) hypertension Status: Chronic (4) Tobacco abuse Status: Chronic (5) Thrombocytopenia Status: Chronic (6) Normocytic anemia Status: Chronic Clinical Quality Measures DVT/VTE Risk/Contraindication: Risk Factor Score Per Nursin RFS Level Per Nursing on Admit: 3=High DARCY MORAN DO Aug 29, 2017 11:05
[2017-08-29] MEDS ORDERED: HYDROcodone/APAP 10 MG/325 MG (LORTAB) TAB PO PRN (11:15)
[2017-08-29] MEDS ORDERED: ONDANSETRON 4 MG/2 ML (SDV) Z0FRAN IVP PRN (11:15)
[2017-08-29 11:36] VITALS: BP 142/79
[2017-08-29] MEDS: LACTULOSE SYRUP 10GM/15ML (ENULOSE) 30ML UDC PO SCH ×2 (12:12→20:10)
--- NOTE | 2017-08-29 14:17 | Occ Therapy Progress Note ---
Therapy Progress Note Attempted to see pt 2x's this afternoon and pt declined each time due to visitors present. Pt stated that she wanted nrsg to assist with bathing at a later time today. 2 visits DEMETRIO MERCADO Aug 29, 2017 14:16
--- NOTE | 2017-08-29 14:50 | Progress Note-Standard ---
Standard Progress Note Progress Notes/Assess & Plan Date Seen by Provider: Aug 29, 2017 Time Seen by Provider: 14:35 Progress/Assessment & Plan 61-year-old female admitted with shortness of breath, fever and pleuritic left lower chest pain. Had 2 courses of antibiotics on an outpatient basis within few weeks of admission for pneumonia. CT scan of the chest showed loculated fluid in the left lung base, status post mini thoracotomy and drainage as well as biopsy which was suggestive of empyema but the fluid itself was sterile. Currently on antibiotics with no febrile episodes. Patient has long-standing history of thrombocytopenia dating back to [address] scan of the chest also showed splenomegaly. Patient developed leukopenia, neutropenia and anemia during the hospitalization and hematology consult requested. Patient is feeling better today and breathing better. 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 Ambulating in hallway. Rest of the examination unchanged from yesterday. Laboratory Tests 08/29/17 03:25: White Blood Count 3.3L, Red Blood Count 3.34L, Hemoglobin 9.7L, Hematocrit 30L, Mean Corpuscular Volume 89, Mean Corpuscular Hemoglobin 29, Mean Corpuscular Hemoglobin Concent 33, Red Cell Distribution Width 14.5, Platelet Count 98L, Mean Platelet Volume 12.4H, Neutrophils (%) (Auto) 51, Lymphocytes (%) (Auto) 29 , Monocytes (%) (Auto) 13H, Eosinophils (%) (Auto) 6, Basophils (%) (Auto) 1, Neutrophils # (Auto) 1.7L, Lymphocytes # (Auto) 1.0, Monocytes # (Auto) 0.4, Eosinophils # (Auto) 0.2, Basophils # (Auto) 0.0, Neutrophils % (Manual) 54, Lymphocytes % (Manual) 34, Monocytes % (Manual) 7, Eosinophils % (Manual) 3, Band Neutrophils 2, Blood Morphology Comment NORMAL, Erythrocyte Sedimentation Rate 59H, Sodium Level 140, Potassium Level 3.5L, Chloride Level 108H, Carbon Dioxide Level 25, Anion Gap 7, Blood Urea Nitrogen 4L, Creatinine 0.64, Estimat Glomerular Filtration Rate > 60, BUN/Creatinine Ratio 6, Glucose Level 99, Calcium Level 8.1L, Total Bilirubin 1.0, Aspartate Amino Transf (AST/SGOT) 13, Alanine Aminotransferase (ALT/SGPT) 9, Alkaline Phosphatase 112, Lactate Dehydrogenase 197, C-Reactive Protein High Sensitivity 3.63H, Total Protein 5.5L , Albumin 2.7L Microbiology 08/20/17 Blood Culture - Final, Complete No growth 08/22/17 Gram Stain - Final, Complete 08/22/17 Anaerobic Culture - Final, Complete No growth 08/22/17 Surgical Culture - Final, Complete No growth 08/22/17 MRSA Screen - Final, Complete I reviewed the peripheral smear today which showed toxic granulation in bands and neutrophils. Activated lymphocytes seen. No immature cells identified. RBCs with anisopoikilocytosis. Mild rouleaux formation noted. Platelets slightly decreased in number with no clumps. Few large platelets noted but no giant platelets seen. A/P: 1. Pancytopenia, probably related to infection and medications. I would recommend monitoring her blood counts weekly for the next month. 2. Probable empyema, status post mini thoracotomy and drainage. On broad- spectrum antibiotics. Complete the course of treatment and discharge patient home when stable. 3. I will request a serum protein electrophoresis because of rouleaux formation noted on the peripheral smear. 4. Monitor CBC with auto diff weekly and follow-up at the cancer center in a month with a CBC, peripheral smear, CMP and LDH level. If she is having any new or unusual symptoms prior to follow-up, she was instructed to contact us. 5. Splenomegaly of unknown etiology. This may explain the thrombocytopenia but not the pancytopenia. CHETAN STAHL Aug 29, 2017 14:50
--- NOTE | 2017-08-29 15:37 | Physical Therapy Daily Note ---
PT Daily Note-Current Subjective Pt laying Supine in bed upon arrival. Pt agrees to PT for a walk but waiting on Nurse to take pt off IV. Pain Numeric Pain Scale: 2 Location Body Site: Side Pain Description: Ache Mental Status Patient Orientation: Person, Place, Time, Situation Attachments: Oxygen (2L), IV Transfers Functional Alliance Measure 0=Not Assessed/NA 4=Minimal Assistance 1=Total Assistance 5=Supervision or Setup 2=Maximal Assistance 6=Modified Alliance 3=Moderate Assistance 7=Complete IndependenceIRFPAI Quality Coding Scale 6 Independent with activity with or without an assistive device 5 Patient requires set up or clean up by helper. Patient completes activity by themselves 4 Supervision or touching assist (CGA). [place] provide cues , steadying assist 3 The helper provides less than half the effort to complete the activity 2 The helper provides more than half the effort to complete the activity 1 Dependent. The helper does all the effort to complete an activity 7 Patient refused to complete or attempt activity 9 The patient did not perform the activity before the current illness or injury 88 Not attempted due to Medical conditions or safety concerns Scootin Supine to/from Sit: 5 Sit to/from Stand: 5 Weight Bearing Right Lower Extremity: Right Full Weight Bearing Left Lower Extremity: Left Full Weight Bearing Gait Training Distance (FIM): 3=150 ft Distance: 200' Gait Level of Assist: 5 Gait Persons Needed: 5 Gait Assistive Device: FWW Pt has normalized gait pattern, needs assistance with managing O2 & vitals machine. Pt fatigues & get s SOA during ambulation but O2 at 93%. Treatments Pt transfers using FWW at [facility]. Pt ambulates in hallway. Pt has normalized gait pattern, needs assistance with managing O2 & vitals machine. Pt fatigues & get s SOA during ambulation but shows 93% O2. Pt returns to EOB to rest as RT arrives. Pt has all needs met including call light at end of tx. Assessment Current Status: Good Progress PT gets SOA and fatigues during walk. PT Boilermaker Assembly And Erection Goals Skilled Nursing Goals PT Skilled Nursing Goals Time Frame: Aug 31, 2017 Transfers (B,C,W/C) (FIM): 7 Gait (FIM): 7 Gait distance (FIM): 3=150 ft Distance: >300' Gait Level of Assist: 7 Gait Assistive Device: None PT Plan Problem List Problem List: Activity Tolerance Treatment/Plan Treatment Plan: Continue Plan of Care Treatment Plan: Education, Functional Activity Bhumika, Functional Strength, Gait , Safety, Therapeutic Exercise Treatment Duration: Aug 31, 2017 Frequency: 5 times per week Estimated Hrs Per Day: .25 hour per day Patient and/or Family Agrees t: Yes Safety Risks/Education Patient Education: Gait Training, Correct Positioning, Safety Issues Teaching Recipient: Patient Teaching Methods: Discussion Response to Teaching: Verbalize Understanding Time/GCodes Time In: 1443 Time Out: 1510 Total Billed Treatment Time: 27 Total Billed Treatment 1, GT (15m) & FA (12m) RA LUBIN FIELD RADIO TECHNICIAN Aug 29, 2017 15:37
[2017-08-29 16:52] VITALS: BP 134/71
[2017-08-29] MEDS: morphine INJ 4 MG/ML 1 ML (VIAL/SYRINGE) IVP PRN (17:22)
[2017-08-29 20:11] VITALS: BP 130/68
[2017-08-30] VITALS: BP 133/65
[2017-08-30] MEDS: morphine INJ 4 MG/ML 1 ML (VIAL/SYRINGE) IVP PRN (02:10)
[2017-08-30] MEDS: RT-ALBUTEROL/IPRATROPIUM 3 ML (DUONEB) VIAL INH SCH ×3 (02:55→15:37)
[2017-08-30 03:28] LABS: BASOPHILS % (AUTO) 1 % (0-10); EOSINOPHILS # (AUTO) 0.1 10^3/uL (0.0-0.3); EOSINOPHILS % (AUTO) 4 % (0-10); HEMATOCRIT 29 % (35-52); HEMOGLOBIN 9.4 G/DL (11.5-16.0); LYMPHOCYTES # (AUTO) 0.9 X 10^3 (1.0-4.0); LYMPHOCYTES % (AUTO) 30 % (12-44); MEAN CORPUSCULAR HEMOGLOBIN 29 PG (25-34); MEAN CORPUSCULAR HGB CONC 33 G/DL (32-36); MEAN CORPUSCULAR VOLUME 88 FL (80-99); MEAN PLATELET VOLUME 12.2 FL (7.4-10.4); MONOCYTES # (AUTO) 0.5 X 10^3 (0.0-1.0); MONOCYTES % (AUTO) 16 % (0-12); NEUTROPHILS # (AUTO) 1.5 X 10^3 (1.8-7.8); NEUTROPHILS % (AUTO) 49 % (42-75); PLATELET COUNT 88 10^3/uL (130-400); RED BLOOD COUNT 3.24 10^6/uL (4.35-5.85); RED CELL DISTRIBUTION WIDTH 14.7 % (10.0-14.5)
[2017-08-30 04:00] VITALS: BP 136/68
[2017-08-30 04:10] LABS: BUN/CREATININE RATIO 7; CALCIUM 7.9 MG/DL (8.5-10.1); CARBON DIOXIDE 21 MMOL/L (21-32); CHLORIDE 108 MMOL/L (98-107); CREATININE SERUM 0.57 MG/DL (0.60-1.30); GFR ESTIMATED > 60; GLUCOSE 107 MG/DL (70-105); POTASSIUM 3.3 MMOL/L (3.6-5.0); SODIUM 138 MMOL/L (135-145)
[2017-08-30] MEDS: PIPERACILLIN SODIUM/TAZOBACTAM 4.5 GM in D5W 100 ML IVPB 100 ML IV SCH ×2 (06:18→15:41)
--- NOTE | 2017-08-30 07:53 | Diagnostic Imaging Report ---
EXAM: CHEST 1 VIEW, AP/PA ONLY INDICATION: Pneumonia. COMPARISON: Chest radiograph 08/29/2017. FINDINGS: Cardiomegaly and pulmonary venous congestion. Consolidation in the lung bases. Small bilateral pleural effusions, greater on the left. No acute osseous findings. IMPRESSION: Stable exam including cardiomegaly, pulmonary venous congestion, bibasilar consolidation and bilateral pleural effusions. Dictated by: Dictated on workstation # [id number]
[2017-08-30 08:00] VITALS: BP 122/64
[2017-08-30] MEDS: SENNA W/DOCUSATE (SENOKOT S) TABLET PO SCH (08:00)
[2017-08-30] MEDS: PANTOPRAZOLE 40 MG (PROTONIX) TAB PO SCH (08:00)
[2017-08-30] MEDS: LACTULOSE SYRUP 10GM/15ML (ENULOSE) 30ML UDC PO SCH (08:00)
[2017-08-30] MEDS: LIDOCAINE (LIDODERM) 5% PATCH TOP SCH (08:00)
[2017-08-30] MEDS ORDERED: FUROSEMIDE 40 MG/4 ML INJ (LASIX) IVP NR (09:55)
[2017-08-30] MEDS ORDERED: KCL 20 MEQ TAB (K-DUR) PO NR (09:56)
[2017-08-30] MEDS ORDERED: OMEP40CA36 PO (10:26)
[2017-08-30] MEDS ORDERED: Lidocaine TOP (10:26)
[2017-08-30] MEDS ORDERED: POTA10CA43 PO (10:26)
[2017-08-30] MEDS ORDERED: IPRA3AMP INH (10:26)
[2017-08-30] MEDS ORDERED: HYDR-3820 PO (10:26)
--- NOTE | 2017-08-30 10:32 | Discharge Summary-Hospitalist ---
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 on Sunday (1) Empyema lung Status: Acute (2) CAP (community acquired pneumonia) Status: Acute (3) Essential (primary) hypertension Status: Chronic (4) Tobacco abuse Status: Chronic (5) Thrombocytopenia Status: Chronic (6) Normocytic anemia Status: Chronic Discharge Summary Discharge Physical Exam Allergies: Coded Allergies: codeine (Verified Allergy, Unknown, 08/20/17) "I get real dizzy and pass out" Vitals & I&Os Vital Signs Date Time Temp Pulse Resp B/P (MAP) Pulse Ox O2 Delivery O2 Flow Rate FiO2 08/30/17 17:00 08/30/17 16:00 98.1 103 20 93 Nasal Cannula 2.00 General Appearance: Alert, Oriented X3, Cooperative Respiratory: Clear to Auscultation, Other (diminished) Neuro: Normal Gait, Normal Speech, Strength at 5/5 X4 Ext Psych/Mental Status: Mental Status NL, Mood NL Hospital Course Hospital course: Patient had a lengthy hospital course she was admitted after recurrent pneumonia and resistant organism assumed that eventually turned into an empyema on the left side of the lung requiring chest tube placement by Dr. Rodríguez and an uncomplicated fashion. She was stabilized improved enough to be transferred to the floor but maintain on oxygen and IV antibiotics. Overall she did improve enough for discharge but she did go home on home oxygen but the pancytopenia neutropenia will be addressed by weekly complete blood count labs and follow-up with Dr. Lopez and she will establish care with me at the [facility] beginning the day following discharge. Smoking cessation was counseled in depth. Patient was also sent home with a nebulizer machine for breathing treatments. I reviewed her discharge medications found to be all correct and she had completed antibiotics while hospitalized so those were not sent at discharge. Labs (last 24 hrs) Microbiology 08/20/17 Blood Culture - Final, Complete No growth 08/22/17 Gram Stain - Final, Complete 08/22/17 Anaerobic Culture - Final, Complete No growth 08/22/17 Surgical Culture - Final, Complete No growth 08/22/17 MRSA Screen - Final, Complete Patient resulted labs reviewed. Pending Labs Imaging: Reviewed Imaging Films, Reviewed Imaging Report Discussion & Recommendations Discharge Planning: >30 minutes discharge planning Discharge Home Medications: Active Scripts Active Potassium Chloride 10 Meq Capsule.er 10 Meq PO BID Hydrocodon-Acetaminophn 10-325 (Hydrocodone/Acetaminophen) 1 Each Tablet 1 Each PO Q6H [Lidocaine] 1 EA Patch 1 Ea TOP DAILY Omeprazole 40 Mg Capsule.dr 40 Mg PO DAILY Iprat-Albut 0.5-3(2.5) mg/3 ml (Ipratropium/Albuterol Sulfate) 3 Ml Ampul.neb 3 Ml INH RTQ6HR Reported Advil (Ibuprofen) 200 Mg Tablet 600 Mg PO Q8H PRN Instructions to patient/family Please see electronic discharge instructions given to patient. Clinical Quality Measures DVT/VTE Risk/Contraindication: Risk Factor Score Per Nursin RFS Level Per Nursing on Admit: 3=High Problem Qualifiers (1) CAP (community acquired pneumonia): Laterality: left Lung location: lower lobe of lung Qualified Codes: J18.1 - Lobar pneumonia, unspecified organism DARCY MORAN DO Aug 30, 2017 10:32
[2017-08-30 12:00] VITALS: BP 127/70
[2017-08-30] MEDS: ACETAMINOPHEN 325 MG TABLET/CAPLET (TYLENOL) PO PRN (14:12)
[2017-08-30 16:00] VITALS: BP 132/61
== END 2017-08-30 17:00 | disposition home or self-care (01) | DRG 163 ==
LOC: ICU 13:40 → 4TH 15:30 → OBSVTOIN 08-22 09:49 → 4TH 08-22 11:27 → ICU 08-22 15:48 → 4TH 08-26 09:21
PROVIDERS: ADMIT Family Medicine; ATTEND Family Medicine
PROC: 0B9P3ZX Drainage of Left Pleura, Percutaneous Approach, Diagnostic (ICD-10-PCS; principal; 2017-08-21)
PROC: 0B9P40Z Drainage of Left Pleura with Drainage Device, Percutaneous Endoscopic Approach (ICD-10-PCS; 2017-08-22)
PROC: 0B5P0ZZ Destruction of Left Pleura, Open Approach (ICD-10-PCS; 2017-08-22)
PROC: 0BCP0ZZ Extirpation of Matter from Left Pleura, Open Approach (ICD-10-PCS; 2017-08-22)
DX: J18.9 Pneumonia, unspecified organism (principal); J86.9 Pyothorax without fistula; J91.8 Pleural effusion in other conditions classified elsewhere; D61.818 Other pancytopenia; K92.0 Hematemesis; I10 Essential (primary) hypertension; F17.210 Nicotine dependence, cigarettes, uncomplicated; R16.1 Splenomegaly, not elsewhere classified
CPT/HCPCS: 36415; 71045; 71260; 80048; 80053; 80202; 82271; 83605; 83615; 83735; 83880; 83986; 84100; 84155; 84165; 85007; 85018; 85025; 85027; 85652; 86141; 86850; 86900; 86901; 87040; 87070; 87075; 87081; 87205; 88112; 88305; 93306; 94640; 94664; 94760; 94761; G0378

== ENCOUNTER 2017-09-20 15:28 | Outpatient (RCR) | payer BC ==
[2017-09-06 14:42] LABS: BASOPHILS % (AUTO) 1 % (0-10); EOSINOPHILS # (AUTO) 0.1 10^3/uL (0.0-0.3); EOSINOPHILS % (AUTO) 4 % (0-10); HEMATOCRIT 32 % (35-52); LYMPHOCYTES # (AUTO) 0.9 X 10^3 (1.0-4.0); LYMPHOCYTES % (AUTO) 28 % (12-44); MEAN CORPUSCULAR HEMOGLOBIN 28 PG (25-34); MEAN CORPUSCULAR HGB CONC 31 G/DL (32-36); MEAN CORPUSCULAR VOLUME 90 FL (80-99); MEAN PLATELET VOLUME 11.9 FL (7.4-10.4); MONOCYTES # (AUTO) 0.3 X 10^3 (0.0-1.0); MONOCYTES % (AUTO) 11 % (0-12); NEUTROPHILS # (AUTO) 1.9 X 10^3 (1.8-7.8); NEUTROPHILS % (AUTO) 58 % (42-75); PLATELET COUNT 131 10^3/uL (130-400); RED BLOOD COUNT 3.56 10^6/uL (4.35-5.85); RED CELL DISTRIBUTION WIDTH 15.5 % (10.0-14.5); WHITE BLOOD COUNT 3.2 10^3/uL (4.3-11.0)
[2017-09-06 15:05] LABS: ALANINE AMINOTRANSFERASE 6 U/L (0-55); ALBUMIN 3.3 GM/DL (3.2-4.5); ALKALINE PHOSPHATASE 127 U/L (40-136); BILIRUBIN,TOTAL 0.7 MG/DL (0.1-1.0); BUN/CREATININE RATIO 9; CARBON DIOXIDE 26 MMOL/L (21-32); CHLORIDE 104 MMOL/L (98-107); CREATININE SERUM 0.68 MG/DL (0.60-1.30); GFR ESTIMATED > 60; GLUCOSE 111 MG/DL (70-105); POTASSIUM 4.2 MMOL/L (3.6-5.0); SODIUM 137 MMOL/L (135-145); TOTAL PROTEIN 7.1 GM/DL (6.4-8.2)
[2017-09-12 14:31] LABS: BASOPHILS % (AUTO) 1 % (0-10); EOSINOPHILS # (AUTO) 0.1 10^3/uL (0.0-0.3); EOSINOPHILS % (AUTO) 4 % (0-10); HEMATOCRIT 34 % (35-52); HEMOGLOBIN 10.6 G/DL (11.5-16.0); LYMPHOCYTES # (AUTO) 1.2 X 10^3 (1.0-4.0); LYMPHOCYTES % (AUTO) 36 % (12-44); MEAN CORPUSCULAR HEMOGLOBIN 28 PG (25-34); MEAN CORPUSCULAR HGB CONC 32 G/DL (32-36); MEAN CORPUSCULAR VOLUME 89 FL (80-99); MEAN PLATELET VOLUME 11.8 FL (7.4-10.4); MONOCYTES # (AUTO) 0.5 X 10^3 (0.0-1.0); MONOCYTES % (AUTO) 14 % (0-12); NEUTROPHILS # (AUTO) 1.6 X 10^3 (1.8-7.8); NEUTROPHILS % (AUTO) 46 % (42-75); PLATELET COUNT 127 10^3/uL (130-400); RED BLOOD COUNT 3.75 10^6/uL (4.35-5.85); WHITE BLOOD COUNT 3.4 10^3/uL (4.3-11.0)
[2017-09-12 14:50] LABS: ALANINE AMINOTRANSFERASE < 6 U/L (0-55); ALBUMIN 3.6 GM/DL (3.2-4.5); ALKALINE PHOSPHATASE 123 U/L (40-136); BILIRUBIN,TOTAL 0.6 MG/DL (0.1-1.0); BUN/CREATININE RATIO 12; CALCIUM 9.2 MG/DL (8.5-10.1); CARBON DIOXIDE 24 MMOL/L (21-32); CHLORIDE 107 MMOL/L (98-107); CREATININE SERUM 0.74 MG/DL (0.60-1.30); GFR ESTIMATED > 60; GLUCOSE 102 MG/DL (70-105); POTASSIUM 4.2 MMOL/L (3.6-5.0); SODIUM 139 MMOL/L (135-145); TOTAL PROTEIN 7.6 GM/DL (6.4-8.2)
[~2017-09-20 15:28] MED LIST: HYDR-3820 PO; IBUP-30 PO; IPRA3AMP31 INH; Lidocaine TOP; OLME1TAB24 PO; OMEP40CA36 PO; POTA10CA43 PO
[2017-09-20 15:40] LABS: BASOPHILS % (AUTO) 1 % (0-10); EOSINOPHILS # (AUTO) 0.1 10^3/uL (0.0-0.3); EOSINOPHILS % (AUTO) 4 % (0-10); HEMATOCRIT 36 % (35-52); HEMOGLOBIN 11.4 G/DL (11.5-16.0); LYMPHOCYTES # (AUTO) 1.1 X 10^3 (1.0-4.0); LYMPHOCYTES % (AUTO) 32 % (12-44); MEAN CORPUSCULAR HEMOGLOBIN 28 PG (25-34); MEAN CORPUSCULAR HGB CONC 32 G/DL (32-36); MEAN CORPUSCULAR VOLUME 89 FL (80-99); MEAN PLATELET VOLUME 11.4 FL (7.4-10.4); MONOCYTES # (AUTO) 0.6 X 10^3 (0.0-1.0); MONOCYTES % (AUTO) 16 % (0-12); NEUTROPHILS # (AUTO) 1.7 X 10^3 (1.8-7.8); NEUTROPHILS % (AUTO) 47 % (42-75); PLATELET COUNT 106 10^3/uL (130-400); RED BLOOD COUNT 4.05 10^6/uL (4.35-5.85); RED CELL DISTRIBUTION WIDTH 15.8 % (10.0-14.5); WHITE BLOOD COUNT 3.5 10^3/uL (4.3-11.0)
[2017-09-20 15:59] LABS: ALANINE AMINOTRANSFERASE 7 U/L (0-55); ALKALINE PHOSPHATASE 101 U/L (40-136); BILIRUBIN,TOTAL 0.8 MG/DL (0.1-1.0); BUN/CREATININE RATIO 15; CALCIUM 9.9 MG/DL (8.5-10.1); CARBON DIOXIDE 27 MMOL/L (21-32); CHLORIDE 104 MMOL/L (98-107); CREATININE SERUM 0.75 MG/DL (0.60-1.30); GFR ESTIMATED > 60; GLUCOSE 114 MG/DL (70-105); POTASSIUM 4.1 MMOL/L (3.6-5.0); SODIUM 140 MMOL/L (135-145); TOTAL PROTEIN 8.2 GM/DL (6.4-8.2)
[2017-10-05] MEDS ORDERED: OXYC-202 PO (18:21)
[2017-10-05] MEDS ORDERED: ONDA8TAB9 PO (18:21)
== END 2017-12-05 | disposition home or self-care (01) ==
LOC: LAB 15:28
PROVIDERS: ATTEND Internal Medicine
DX: E87.6 Hypokalemia (principal); E87.1 Hypo-osmolality and hyponatremia
CPT/HCPCS: 36415; 80053; 85025

== ENCOUNTER 2017-12-03 12:28 | Outpatient (RCR) | payer BC ==
[2017-11-27 12:02] LABS: ABSOLUTE RETIC # 59 10e9/L (24-90); BASOPHILS % (AUTO) 0 % (0-10); EOSINOPHILS # (AUTO) 0.1 10^3/uL (0.0-0.3); EOSINOPHILS % (AUTO) 2 % (0-10); HEMATOCRIT 39 % (35-52); HEMOGLOBIN 13.3 G/DL (11.5-16.0); LYMPHOCYTES # (AUTO) 1.1 X 10^3 (1.0-4.0); LYMPHOCYTES % (AUTO) 32 % (12-44); MEAN CORPUSCULAR HEMOGLOBIN 29 PG (25-34); MEAN CORPUSCULAR HGB CONC 34 G/DL (32-36); MEAN CORPUSCULAR VOLUME 86 FL (80-99); MEAN PLATELET VOLUME 12.7 FL (7.4-10.4); MONOCYTES # (AUTO) 0.4 X 10^3 (0.0-1.0); MONOCYTES % (AUTO) 12 % (0-12); NEUTROPHILS # (AUTO) 1.9 X 10^3 (1.8-7.8); NEUTROPHILS % (AUTO) 54 % (42-75); PLATELET COUNT 96 10^3/uL (130-400); RED BLOOD COUNT 4.55 10^6/uL (4.35-5.85); RED CELL DISTRIBUTION WIDTH 15.5 % (10.0-14.5); RETICULOCYTE % 1.29 % (0.50-2.40); WHITE BLOOD COUNT 3.5 10^3/uL (4.3-11.0)
[2017-11-27 12:30] LABS: ALANINE AMINOTRANSFERASE 9 U/L (0-55); ALBUMIN 4.1 GM/DL (3.2-4.5); ALKALINE PHOSPHATASE 83 U/L (40-136); BILIRUBIN,TOTAL 0.5 MG/DL (0.1-1.0); BUN/CREATININE RATIO 13; CALCIUM 9.7 MG/DL (8.5-10.1); CARBON DIOXIDE 22 MMOL/L (21-32); CHLORIDE 107 MMOL/L (98-107); CREATININE SERUM 0.78 MG/DL (0.60-1.30); GFR ESTIMATED > 60; GLUCOSE 116 MG/DL (70-105); POTASSIUM 4.1 MMOL/L (3.6-5.0); SODIUM 139 MMOL/L (135-145); TOTAL PROTEIN 7.6 GM/DL (6.4-8.2)
[~2017-12-03 12:28] MED LIST changes: +ONDA8TAB9 PO; +OXYC-202 PO
== END 2017-12-23 | disposition home or self-care (01) ==
LOC: ONC 12:28
PROVIDERS: ATTEND Internal Medicine Hematology & Oncology
DX: D61.818 Other pancytopenia (principal); Z87.891 Personal history of nicotine dependence; Z99.81 Dependence on supplemental oxygen
CPT/HCPCS: 36415; 80053; 82607; 82746; 83090; 83615; 83921; 85025; 85045; 99213

== ENCOUNTER 2017-12-21 07:45 | Outpatient (CLI) | payer BC ==
[2017-12-21] VITALS (16 sets, daily range): BP systolic 135–185; BP diastolic 77–117
[~2017-12-21] VITALS: Ht 182.9 cm; Wt 102.4 kg
[2017-12-21 08:22] LABS: BASOPHILS % (AUTO) 1 % (0-10); EOSINOPHILS # (AUTO) 0.1 10^3/uL (0.0-0.3); EOSINOPHILS % (AUTO) 3 % (0-10); HEMATOCRIT 40 % (35-52); HEMOGLOBIN 13.7 G/DL (11.5-16.0); LYMPHOCYTES % (AUTO) 30 % (12-44); MEAN CORPUSCULAR HEMOGLOBIN 30 PG (25-34); MEAN CORPUSCULAR HGB CONC 35 G/DL (32-36); MEAN CORPUSCULAR VOLUME 86 FL (80-99); MEAN PLATELET VOLUME 12.4 FL (7.4-10.4); MONOCYTES # (AUTO) 0.5 X 10^3 (0.0-1.0); MONOCYTES % (AUTO) 14 % (0-12); NEUTROPHILS # (AUTO) 1.7 X 10^3 (1.8-7.8); NEUTROPHILS % (AUTO) 53 % (42-75); PLATELET COUNT 81 10^3/uL (130-400); RED CELL DISTRIBUTION WIDTH 15.5 % (10.0-14.5); WHITE BLOOD COUNT 3.2 10^3/uL (4.3-11.0)
[2017-12-21] MEDS ORDERED: NS IV 1000 ML 1,000 ML IV STA (08:23)
[2017-12-21] MEDS ORDERED: LIDOCAINE 1% INJ 20 ML 20 ML VIAL INJ ONE (08:30)
[2017-12-21 08:47] LABS: PROTHROMBIN TIME PATIENT 13.5 SEC (12.2-14.7)
[2017-12-21] MEDS: fentaNYL INJECTION 100 MCG/2 ML AMP IVP PRN ×4 (09:15→09:38)
[2017-12-21 09:16] LABS: ABSOLUTE RETIC # 63 10e9/L (24-90); RETICULOCYTE % 1.36 % (0.50-2.40)
[2017-12-21] MEDS: MIDAZOLAM 2 MG/2 ML (VERSED) VIAL IVP PRN ×3 (09:28→09:37)
[2017-12-21 10:00] LABS: BAND NEUTROPHILS 0 %; BASOPHILS % (MANUAL) 1 %; EOSINOPHILS % (MANUAL) 5 %; LYMPHOCYTES % (MANUAL) 35 %; MONOCYTES % (MANUAL) 8 %; NEUTROPHILS % (MANUAL) 51 %; RBC MORPH NORMAL
[2017-12-21] MEDS ORDERED: HYDROcodone/APAP 5 MG/325 MG (LORTAB) TAB PO PRN (10:00)
--- NOTE | 2017-12-21 11:06 | Pre-Op Note & Conscious Sedat ---
Pre-Operative Progress Note H&P Reviewed The H&P was reviewed, patient examined and no changes noted. Date H&P Reviewed: Dec 21, 2017 Time H&P Reviewed: 08:00 Pre-Op Diagnosis: Pancytopenia Conscious Sedation Pre-Proced Time Reviewed: 08:00 ASA Class: 2 Airway Mallampati Classification: (coquille appropriate class) I. II. III, IV Lungs Heart ASA score ASA 1: a normal healthy patient ASA 2: a patient with a mild systemic disease (mid diabetes, controlled hypertension, obesity ASA 3: a patient with a severe systemic disease that limits activity (angina , COPD, prior Myocardial infarction) ASA 4: a patient with an incapacitating disease that is a constant threat to life (CHF, renal failure) ASA 5: a moribund patient not expected to survive 24 hrs. (ruptured aneurysm) ASA 6: a declared brain patient whose organs are being harvested. For emergent operations, add the letter E after the classification Grade 1 Sedation Plan: Analgesia, Amnesia, Plan communicated to team members, Discussed options with patient/fam, Discussed risks with patient/fam Note The patient is an appropriate candidate to undergo the planned procedure, sedation, and anesthesia. The patient immediately re-assessed prior to indication. ROSE CUEVAS MD Dec 21, 2017 11:06
--- NOTE | 2017-12-21 11:08 | Diagnostic Imaging Report ---
Indication: Pancytopenia. The patient presents for CT-guided bone marrow biopsy. The patient was brought to the CT suite placed on the table in a prone position. Axial imaging to the pelvis was performed to evaluate appropriate entry site. Skin of the low back was prepped and draped in the usual sterile fashion. A small amount of 1% lidocaine was utilized for local anesthesia. Conscious sedation was also performed with radiology nursing and constant patient monitoring. Patient was administered 2 mg of Versed and 100 ? of fentanyl intravenously. A bone marrow biopsy needle was advanced and placed with its tip adjacent to the posterior cortex of the right iliac bone. Bone marrow drill was used to advance the needle into the iliac bone. Bone marrow aspirates and core biopsy was then obtained. Needle was withdrawn and hemostasis was obtained using manual compression. The patient tolerated the procedure well and left the department in stable condition. Impression: Successful CT-guided bone marrow aspiration and core biopsy, utilizing conscious sedation. Dictated by: Dictated on workstation # [id number]
--- OUTSIDE RECORDS SUMMARY | 2017-12-22 03:40 | XMS REPORT ---
Author Author NORMA NUNEZ [facility] Address [address] [place] [address] Care Team Providers Care Animal Daycare Provider Name Role Phone NUNEZNORMA SYLVESTER Unavailable PROBLEMS Type Condition ICD9-CM Code FLE26-MD Code Onset Dates Condition Status SNOMED Code Problem Screening for thyroid disorder V77.0 Active 894744096 Problem Cervicalgia M54.2 Active 26377376 Problem Essential hypertension I10 Active 00652605 Problem Acute pharyngitis 462 Active 516023515 Problem Need for prophylactic vaccination and inoculation, Influenza V04.81 Active 908460339 Problem Unspecified thrombocytopenia 287.5 Active 502218559 Problem Essential hypertension, benign 401.1 Active 7443586 ALLERGIES No Information ENCOUNTERS Encounter Location Date Diagnosis [facility] [address] [address] Aug, [facility] [id number] [place] [address] [id number] Apr, Essential hypertension I10 and Encounter for immunization Z23 [address] [id number] [place] [address] [id number] Oct, Essential hypertension I10 ; Screening for thyroid disorder Z13.29 ; Screening for lipid disorders Z13.220 and Screening for heart disease Z13.6 [facility] [id number] [place] [address] [id number] September, [facility] [id number] [place] [address] [id number] May, Essential hypertension I10 [address] [address] [id number] [place] [address] [id number] Apr, Essential hypertension I10 and Cervicalgia M54.2 [facility] [address] [place] [address] [id number] Feb, Essential hypertension I10 and Encounter for immunization Z23 [facility] [id number] [phone] Feb, [facility] [address] [id number][place] [phone] Jan, Essential hypertension I10 and Cervicalgia M54.2 [facility] [address] [id number][place] [phone] Oct, [facility] [id number] [place] [address] [id number] Oct, [facility] [id number] [place] [address] [id number] Aug, [facility] [id number][place] [id number] Jul, Essential (primary) hypertension I10 [facility] [id number], [place] [id number] Jun, [facility] [id number], [place] [id number] Apr, Fall, initial encounter W19.XXXA and Midline thoracic back pain M54.6 [facility] [address] [id number], [place] [id number] Apr, [facility] [id number], [place] [phone] Mar, [facility] [id number], [place] [id number] Mar, [facility] [address] [id number] [place] [phone] Jan, [facility] [address] [facility] [id number][place] [phone] Jan, Muscle spasm of back 724.8 [facility] [address] [facility] [id number][place] [phone] Jan, [facility] [id number], [place] [phone] Jan, Cervical stenosis of spinal canal 723.0 [facility] [id number], [place] [phone] Dec, Cervical stenosis of spinal canal 723.0 [facility] [id number], [place] [id number] Dec, Cervical stenosis of spinal canal 723.0 [facility] [id number], [place] [phone] Dec, [facility] [id number], [place] [id number] Dec, Cervical stenosis of spinal canal 723.0 [facility] [id number], [place] [id number] Dec, [facility] [id number] [place] [address] [id number] Nov, Bulging discs 722.10 and Edema 782.3 [facility] [id number] [place] [address] Nov, [facility] [id number] [place] [address] [id number] Oct, Bilateral arm numbness and tingling while sleeping 782.0 [facility] [id number], [place] [id number] September, [facility] [address] [place] [address] [phone] September, [facility] [id number] [place] [address] [id number] September, Essential hypertension, benign 401.1 and Radiculopathy affecting upper extremity 723.4 [facility] [id number] [place] [phone] Aug, [facility] [id number] [place] [address] Aug, [facility] [id number], [place] [id number] Jul, [facility] [id number] [place] [address] Jul, [facility] [id number], [place] [id number] Nov, [facility] [id number], [place] [address] Nov, [facility] [address] [id number], [place] [phone] Nov, [facility] [address], [place] [address] Nov, [facility] [address], [place] [address] Nov, [facility] [address], [place] [address] Nov, [facility] [id number], [place] [id number] Nov, [facility] [id number], [place] [id number] Mar, [facility] [address] [id number], [place] [address] Mar, [facility] [address] [id number], [place] [phone] Dec, [facility] [id number], [place] [id number] Oct, IMMUNIZATIONS No Known Immunizations SOCIAL HISTORY Never Assessed REASON FOR VISIT Hospital admission PLAN OF CARE VITAL SIGNS MEDICATIONS Unknown Medications RESULTS No Results PROCEDURES No Known procedures INSTRUCTIONS MEDICATIONS ADMINISTERED No Known Medications MEDICAL (GENERAL) HISTORY Type Description Date Medical History Hypertension Medical History Chronic nerve pain Medical History chronic pain--back Surgical History section 1988 Surgical History replaced to disk in neck 2014 Surgical History left knee replacement 11/2015
--- OUTSIDE RECORDS SUMMARY | 2017-12-22 03:41 | XMS REPORT ---
Author Author NORMA NUNEZ [facility] Address [address] [place] [address] Care Team Providers Care Supervisor Picking Crew Name Role Phone NUNEZNORMA SYLVESTER Unavailable PROBLEMS Type Condition ICD9-CM Code ERB38-VQ Code Onset Dates Condition Status SNOMED Code Problem Screening for thyroid disorder V77.0 Active 637738618 Problem Cervicalgia M54.2 Active 97854664 Problem Essential hypertension I10 Active 14587663 Problem Acute pharyngitis 462 Active 871883885 Problem Need for prophylactic vaccination and inoculation, Influenza V04.81 Active 467728560 Problem Unspecified thrombocytopenia 287.5 Active 633360996 Problem Essential hypertension, benign 401.1 Active 4924803 ALLERGIES Substance Reaction Event Type Date Status Prednisone felt weak and achy Drug Allergy Apr, Active Hydrocodone-Acetaminophen nausea Drug Allergy Apr, Active Codeine nausea Drug Allergy Apr, Active ENCOUNTERS Encounter Location Date Diagnosis [facility] [id number] [place] [phone] Aug, [address] [id number] Apr, Essential hypertension I10 and Encounter for immunization Z23 [id number] [place] [address] [id number] Oct, Essential hypertension I10 ; Screening for thyroid disorder Z13.29 ; Screening for lipid disorders Z13.220 and Screening for heart disease Z13.6 [id number] [place] [address] [id number] September, [address] [id number] May, Essential hypertension I10 [id number] [place] [address] [id number] Apr, Essential hypertension I10 and Cervicalgia M54.2 [facility] [id number] [place] [address] [id number] Feb, Essential hypertension I10 and Encounter for immunization Z23 [facility] [id number] [place] [address] [id number] Feb, [facility] [id number] [place] [address] [id number] Jan, Essential hypertension I10 and Cervicalgia M54.2 [place] [address] [id number] Oct, [facility] [id number] [place] [address] [id number] Oct, [place] [id number] [place] [address] [id number] Aug, [place] [id number] [place] [address] [id number] Jul, Essential (primary) hypertension I10 [id number] [place] [address] [id number] Jun, [place] [id number] [place] [address] [id number] Apr, Fall, initial encounter W19.XXXA and Midline thoracic back pain M54.6 [address] [place] [address] [id number] Apr, [place] [id number] [place] [address] [id number] Mar, [place] [id number] [place] [address] [id number] Mar, [facility] [id number] [phone] Jan, [facility] [id number] [place] [address] [id number] Jan, Muscle spasm of back 724.8 [facility] [id number] [place] [address] [id number] Jan, [facility] [place] [id number] [place] [address] [id number] Jan, Cervical stenosis of spinal canal 723.0 [facility] [address] [id number] [place]LAND[place] [id number] Dec, Cervical stenosis of spinal canal 723.0 [facility] [id number] [place] [address] [id number] Dec, Cervical stenosis of spinal canal 723.0 [facility] [address] [id number] [place]LAND[place] [id number] Dec, [facility] [id number] [place] [address] [id number] Dec, Cervical stenosis of spinal canal 723.0 [facility] [id number] [place] [address] [id number] Dec, [facility] [id number] [place] [address] [id number] Nov, Bulging discs 722.10 and Edema 782.3 [facility] [id number] [place] [address]- [address] Nov, [facility] [id number] [place] [address] [id number] Oct, Bilateral arm numbness and tingling while sleeping 782.0 [facility] [id number] [place] [address] [id number] September, [facility] [id number] [place] [address] 51672- 70[address] September, [facility] [id number] [place]LAND[place] [id number] September, Essential hypertension, benign 401.1 and Radiculopathy affecting upper extremity 723.4 [facility] [id number] [place] [address] 10407- 0631 Aug, [facility] [id number] [place] [address] 16651- 3[address] Aug, [facility] [id number] [place] [address] [id number] Jul, [facility] [id number] [place] [address] 30181- 8827 Jul, [place] [id number] [place]LAND[place] [id number] Nov, [facility] [address], [place] [address]- [address] Nov, [facility] [id number] [place]LAND[place] [id number] Nov, [facility] [address], [place] [address] Nov, [facility] [address], [place] [address] Nov, [facility] [id number] [place] [address] 6[address]- 2546 Nov, [facility] [id number] [place]LAND[place] [id number] Nov, [facility] [id number] [place]LAND[place] [id number] Mar, [facility] [address], [place] [address]- [address] Mar, [facility] [address] [id number] [place] [id number] Dec, [facility] [address] [phone] Oct, IMMUNIZATIONS Vaccine Route Administration Date Status FLUARIX QUAD (3 AND UP) 2016 IM Intramuscular May 07, 2017 Administered SOCIAL HISTORY Never Assessed REASON FOR VISIT [facility]- 6 month f/u Hypertension [facility] PLAN OF CARE Activity Details Follow Up 6 Months Reason:htn VITAL SIGNS Height 72 in 2017-05-07 Weight 229.2 lbs 2017-05-07 Temperature 97.9 degrees Fahrenheit 2017-05-07 Heart Rate 88 bpm 2017-05-07 Respiratory Rate 16 2017-05-07 BMI 31.08 kg/m2 2017-05-07 Blood pressure systolic 127 mmHg 2017-05-07 Blood pressure diastolic 78 mmHg 2017-05-07 MEDICATIONS Medication Instructions Dosage Frequency Start Date End Date Duration Status Benicar HCT 40-25 MG Orally Once a day, must come to appt for further refills. 1 tablet 0 days Active RESULTS No Results PROCEDURES Procedure Date Ordered Result Body Site FLUARIX QUAD (3 AND UP) 2017 May 07, 2017 SINGLE IMMUNIZATION ADMIN May 07, 2017 INSTRUCTIONS MEDICATIONS ADMINISTERED No Known Medications MEDICAL (GENERAL) HISTORY Type Description Date Medical History Hypertension Medical History Chronic nerve pain Medical History chronic pain--back Surgical History section 1988 Surgical History replaced to disk in neck 2014 Surgical History left knee replacement 11/2015
--- OUTSIDE RECORDS SUMMARY | 2017-12-22 03:42 | XMS REPORT | Continuity of Care Document ---
Author Author [facility] Address Unknown Phone Unavailable Allergies Active Description Code Type Severity Reaction Onset Reported/Identified Relationship to Patient Clinical Status Yes Codeine Drug Allergy N/A N/A 11/04/2012 Yes prednisone Drug Allergy N/A N/A 11/04/2012 Yes codeine [id number] Drug Allergy Unknown N/A 08/20/2017 Medications There is no data. Problems Date Dx Coded Attending Type Code Diagnosis Diagnosed By 11/04/2012 401.1 HYPERTENSION, BENIGN ESSENTIAL 11/04/2012 401.1 HYPERTENSION, BENIGN ESSENTIAL 11/04/2012 GOODMAN DO YVETTE K 401.1 HYPERTENSION, BENIGN ESSENTIAL 11/04/2012 GOODMAN DO YVETTE K 401.1 HYPERTENSION, BENIGN ESSENTIAL 11/04/2012 GOODMAN DO YVETTE K 401.1 HYPERTENSION, BENIGN ESSENTIAL 11/04/2012 GOODMAN DO, YVETTE K 401.1 HYPERTENSION, BENIGN ESSENTIAL 04/09/2013 GOODMAN DO, YVETTE K 462 ACUTE PHARYNGITIS 04/09/2013 GOODMAN DO, YVETTE K V04.81 FLU SHOT 04/09/2013 GOODMAN DO, YVETTE K 462 ACUTE PHARYNGITIS 04/09/2013 GOODMAN DO, YVETTE K V04.81 FLU SHOT 04/09/2013 GOODMAN DO, YVETTE K 462 ACUTE PHARYNGITIS 04/09/2013 GOODMAN DO, YVETTE K V04.81 FLU SHOT 04/09/2013 OGODMAN DO, YVETTE K 462 ACUTE PHARYNGITIS 04/09/2013 GOODMAN DO, YVETTE K V04.81 FLU SHOT 11/19/2013 GOODMAN DO, YVETTE K V77.0 SCREENING FOR THYROID DISORDERS 11/19/2013 GOODMAN DO, YVETTE K V77.0 SCREENING FOR THYROID DISORDERS 11/19/2013 GOODMAN DO, YVETTE K V77.0 SCREENING FOR THYROID DISORDERS 12/01/2013 GOODMAN DO YVETTE K 287.5 THROMBOCYTOPENIA UNSPECIFIED 12/01/2013 GOODMAN DO YVETTE K 287.5 THROMBOCYTOPENIA UNSPECIFIED 11/19/2015 DARCY MORAN DO Ot D69.3 IMMUNE THROMBOCYTOPENIC PURPURA 11/24/2015 NEFTALI GLOVER MD Ot I10 ESSENTIAL (PRIMARY) HYPERTENSION 12/10/2015 GINA MORAN DOI Ot D69.3 IMMUNE THROMBOCYTOPENIC PURPURA 12/17/2015 NEFTALI GLOVER MD Ot I10 ESSENTIAL (PRIMARY) HYPERTENSION 08/20/2017 DARCY MORAN DO Ot D69.3 IMMUNE THROMBOCYTOPENIC PURPURA 08/20/2017 NEFTALI GLOVER MD Ot I10 ESSENTIAL (PRIMARY) HYPERTENSION 08/26/2017 SOPHIA PIMENTEL MD Ot D69.6 THROMBOCYTOPENIA, UNSPECIFIED 08/26/2017 SOPHIA PIMENTEL MD Ot F17.210 NICOTINE DEPENDENCE, CIGARETTES, UNCOMPL 08/26/2017 SOPHIA PIMENTEL MD Ot I10 ESSENTIAL (PRIMARY) HYPERTENSION 08/26/2017 SOPHIA PIMENTEL MD Ot J18.9 PNEUMONIA, UNSPECIFIED ORGANISM 08/26/2017 SOPHIA PIMENTEL MD Ot J91.8 PLEURAL EFFUSION IN OTHER CONDITIONS CLA 08/28/2017 SOPHIA PIMENTEL MD Ot D69.6 THROMBOCYTOPENIA, UNSPECIFIED 08/28/2017 SOPHIA PIMENTEL MD Ot F17.210 NICOTINE DEPENDENCE, CIGARETTES, UNCOMPL 08/28/2017 SOPHIA PIMENTEL MD Ot I10 ESSENTIAL (PRIMARY) HYPERTENSION 08/28/2017 SOPHIA PIMENTEL MD Ot J18.9 PNEUMONIA, UNSPECIFIED ORGANISM 08/28/2017 SOPHIA PIMENTEL MD Ot J91.8 PLEURAL EFFUSION IN OTHER CONDITIONS CLA 08/30/2017 SOPHIA PIMENTEL MD Ot D61.818 OTHER PANCYTOPENIA 08/30/2017 SOPHIA PIMENTEL MD Ot F17.210 NICOTINE DEPENDENCE, CIGARETTES, UNCOMPL 08/30/2017 SOPHIA PIMENTEL MD Ot I10 ESSENTIAL (PRIMARY) HYPERTENSION 08/30/2017 SOPHIA PIMENTEL MD Ot J18.9 PNEUMONIA, UNSPECIFIED ORGANISM 08/30/2017 SOPHIA PIMENTEL MD Ot J86.9 PYOTHORAX WITHOUT FISTULA 08/30/2017 SOPHIA PIMENTEL MD Ot J91.8 PLEURAL EFFUSION IN OTHER CONDITIONS CLA 08/30/2017 SOPHIA PIMENTEL MD Ot K92.0 HEMATEMESIS 08/30/2017 SOPHIA PIMENTEL MD Ot R16.1 SPLENOMEGALY, NOT ELSEWHERE CLASSIFIED 09/04/2017 SOPHIA PIMENTEL MD Ot D61.818 OTHER PANCYTOPENIA 09/04/2017 SOPHIA PIMENTEL MD Ot F17.210 NICOTINE DEPENDENCE, CIGARETTES, UNCOMPL 09/04/2017 SOPHIA PIMENTEL MD Ot I10 ESSENTIAL (PRIMARY) HYPERTENSION 09/04/2017 SOPHIA PIMENTEL MD Ot J18.9 PNEUMONIA, UNSPECIFIED ORGANISM 09/04/2017 SOPHIA PIMENTEL MD Ot J86.9 PYOTHORAX WITHOUT FISTULA 09/04/2017 SOPHIA PIMENTEL MD Ot J91.8 PLEURAL EFFUSION IN OTHER CONDITIONS CLA 09/04/2017 SOPHIA PIMENTEL MD Ot K92.0 HEMATEMESIS 09/04/2017 SOPHIA PIMENTEL MD Ot R16.1 SPLENOMEGALY, NOT ELSEWHERE CLASSIFIED 09/04/2017 SOPHIA PIMENTEL MD Ot D61.818 OTHER PANCYTOPENIA 09/04/2017 SOPHIA PIMENTEL MD Ot F17.210 NICOTINE DEPENDENCE, CIGARETTES, UNCOMPL 09/04/2017 SOPHIA PIMENTEL MD Ot I10 ESSENTIAL (PRIMARY) HYPERTENSION 09/04/2017 SOPHIA PIMENTEL MD Ot J18.9 PNEUMONIA, UNSPECIFIED ORGANISM 09/04/2017 SOPHIA PIMENTEL MD Ot J86.9 PYOTHORAX WITHOUT FISTULA 09/04/2017 SOPHIA PIMENTEL MD Ot J91.8 PLEURAL EFFUSION IN OTHER CONDITIONS CLA 09/04/2017 SOPHIA PIMENTEL MD Ot K92.0 HEMATEMESIS 09/04/2017 SOPHIA PIMENTEL MD Ot R16.1 SPLENOMEGALY, NOT ELSEWHERE CLASSIFIED 09/04/2017 SOPHIA PIMENTEL MD Ot D61.818 OTHER PANCYTOPENIA 09/04/2017 SOPHIA PIMENTEL MD Ot F17.210 NICOTINE DEPENDENCE, CIGARETTES, UNCOMPL 09/04/2017 SOPHIA PIMENTEL MD Ot I10 ESSENTIAL (PRIMARY) HYPERTENSION 09/04/2017 SOPHIA PIMENTEL MD Ot J18.9 PNEUMONIA, UNSPECIFIED ORGANISM 09/04/2017 SOPHIA PIMENTEL MD Ot J86.9 PYOTHORAX WITHOUT FISTULA 09/04/2017 SOPHIA PIMENTEL MD Ot J91.8 PLEURAL EFFUSION IN OTHER CONDITIONS CLA 09/04/2017 SOPHIA PIMENTEL MD Ot K92.0 HEMATEMESIS 09/04/2017 SOPHIA PIMENTEL MD Ot R16.1 SPLENOMEGALY, NOT ELSEWHERE CLASSIFIED 09/04/2017 SOPHIA PIMENTEL MD Ot D61.818 OTHER PANCYTOPENIA 09/04/2017 SOPHIA PIMENTEL MD Ot F17.210 NICOTINE DEPENDENCE, CIGARETTES, UNCOMPL 09/04/2017 SOPHIA PIMENTEL MD Ot I10 ESSENTIAL (PRIMARY) HYPERTENSION 09/04/2017 SOPHIA PIMENTEL MD Ot J18.9 PNEUMONIA, UNSPECIFIED ORGANISM 09/04/2017 SOPHIA PIMENTEL MD Ot J86.9 PYOTHORAX WITHOUT FISTULA 09/04/2017 SOPHIA PIMENTEL MD Ot J91.8 PLEURAL EFFUSION IN OTHER CONDITIONS CLA 09/04/2017 SOPHIA PIMENTEL MD Ot K92.0 HEMATEMESIS 09/04/2017 SOPHIA PIMENTEL MD Ot R16.1 SPLENOMEGALY, NOT ELSEWHERE CLASSIFIED 09/04/2017 SOPHIA PIMENTEL MD Ot D61.818 OTHER PANCYTOPENIA 09/04/2017 SOPHIA PIMENTEL MD Ot F17.210 NICOTINE DEPENDENCE, CIGARETTES, UNCOMPL 09/04/2017 SOPHIA PIMENTEL MD Ot I10 ESSENTIAL (PRIMARY) HYPERTENSION 09/04/2017 SOPHIA PIMENTEL MD Ot J18.9 PNEUMONIA, UNSPECIFIED ORGANISM 09/04/2017 SOPHIA PIMENTEL MD Ot J86.9 PYOTHORAX WITHOUT FISTULA 09/04/2017 SOPHIA PIMENTEL MD Ot J91.8 PLEURAL EFFUSION IN OTHER CONDITIONS CLA 09/04/2017 SOPHIA PIMENTEL MD Ot K92.0 HEMATEMESIS 09/04/2017 SOPHIA PIMENTEL MD Ot R16.1 SPLENOMEGALY, NOT ELSEWHERE CLASSIFIED 09/04/2017 SOPHIA PIMENTEL MD Ot D61.818 OTHER PANCYTOPENIA 09/04/2017 SOPHIA PIMENTEL MD Ot F17.210 NICOTINE DEPENDENCE, CIGARETTES, UNCOMPL 09/04/2017 SOPHIA PIMENTEL MD Ot I10 ESSENTIAL (PRIMARY) HYPERTENSION 09/04/2017 SOPHIA PIMENTEL MD Ot J18.9 PNEUMONIA, UNSPECIFIED ORGANISM 09/04/2017 SOPHIA PIMENTEL MD Ot J86.9 PYOTHORAX WITHOUT FISTULA 09/04/2017 SOPHIA PIMENTEL MD Ot J91.8 PLEURAL EFFUSION IN OTHER CONDITIONS CLA 09/04/2017 SOPHIA PIMENTEL MD Ot K92.0 HEMATEMESIS 09/04/2017 SOPHIA PIMENTEL MD Ot R16.1 SPLENOMEGALY, NOT ELSEWHERE CLASSIFIED 09/06/2017 LUISA MIRELES DARCY Ot D69.3 IMMUNE THROMBOCYTOPENIC PURPURA 09/06/2017 NEFTALI GLOVER MD Ot I10 ESSENTIAL (PRIMARY) HYPERTENSION 09/26/2017 CHETAN STAHL Ot D61.818 OTHER PANCYTOPENIA 09/26/2017 CHETAN STAHL Ot Z87.891 PERSONAL HISTORY OF NICOTINE DEPENDENCE 09/26/2017 CHETAN STAHL Ot Z99.81 DEPENDENCE ON SUPPLEMENTAL OXYGEN 10/03/2017 LUISA MIRELES DARCY Ot E87.1 HYPO-OSMOLALITY AND HYPONATREMIA 10/03/2017 MORAN DO, DARCY Ot E87.6 HYPOKALEMIA 10/05/2017 LUISA MIRELES DARCY Ot D69.3 IMMUNE THROMBOCYTOPENIC PURPURA 10/05/2017 NEFTALI GLOVER MD Ot I10 ESSENTIAL (PRIMARY) HYPERTENSION 10/05/2017 MORANEJ MIRELES DARCY Ot E87.1 HYPO-OSMOLALITY AND HYPONATREMIA 10/05/2017 LUISA MIRELES DARCY Ot E87.6 HYPOKALEMIA 10/05/2017 CHETAN STAHL Ot D61.818 OTHER PANCYTOPENIA 10/05/2017 CHETAN STAHL Ot Z87.891 PERSONAL HISTORY OF NICOTINE DEPENDENCE 10/05/2017 CHETAN STAHL Ot Z99.81 DEPENDENCE ON SUPPLEMENTAL OXYGEN 10/05/2017 MONIKA BOX MD Ot D69.6 THROMBOCYTOPENIA, UNSPECIFIED 10/05/2017 MONIKA BOX MD Ot I10 ESSENTIAL (PRIMARY) HYPERTENSION 10/05/2017 MONIKA BOX MD Ot J90 PLEURAL EFFUSION, NOT ELSEWHERE CLASSIFI 10/05/2017 MONIKA BOX MD Ot 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, NEC, THORACIC REGION 10/05/2017 MONIKA BOX MD Ot M54.9 DORSALGIA, UNSPECIFIED 10/05/2017 MONIKA BOX MD Ot Z87.01 PERSONAL HISTORY OF PNEUMONIA (RECURRENT 10/05/2017 MONIKA BOX MD Ot Z87.891 PERSONAL HISTORY OF NICOTINE DEPENDENCE 10/05/2017 MONIKA BOX MD Ot Z88.5 ALLERGY STATUS TO NARCOTIC AGENT STATUS 10/08/2017 DARCY MORAN DO Ot D69.3 IMMUNE THROMBOCYTOPENIC PURPURA 10/08/2017 ADALBERTO GALVEZ, NEFTALI Heart Ot I10 ESSENTIAL (PRIMARY) HYPERTENSION 10/08/2017 DARCY MORAN DO Ot E87.1 HYPO-OSMOLALITY AND HYPONATREMIA 10/08/2017 DARCY MORAN DO Ot E87.6 HYPOKALEMIA 10/08/2017 MARIBETHCHETAN Ot D61.818 OTHER PANCYTOPENIA 10/08/2017 CHETAN STAHL Ot Z87.891 PERSONAL HISTORY OF NICOTINE DEPENDENCE 10/08/2017 MARIBETHCHETAN Ot Z99.81 DEPENDENCE ON SUPPLEMENTAL OXYGEN 11/01/2017 MARIBETHCHETAN Ot D61.818 OTHER PANCYTOPENIA 11/01/2017 MARIBETHCHETAN Ot Z87.891 PERSONAL HISTORY OF NICOTINE DEPENDENCE 11/01/2017 MARIBETHCHETAN Ot Z99.81 DEPENDENCE ON SUPPLEMENTAL OXYGEN 12/05/2017 DARCY MORAN DO Ot E87.1 HYPO-OSMOLALITY AND HYPONATREMIA 12/05/2017 DARCY MORAN DO Ot E87.6 HYPOKALEMIA 12/06/2017 DARCY MORAN DO Ot E87.1 HYPO-OSMOLALITY AND HYPONATREMIA 12/06/2017 DARCY MORAN DO Ot E87.6 HYPOKALEMIA Procedures Code [place] [address] ROUTINE VENIPUNCTURE 11/19/2013 79169 CMP 11/19/2013 69755 LIPID PANEL 11/19/2013 23064 TSH 11/19/2013 99260 CBC 11/19/2013 49729 A1C (IN-HOUSE) 12/01/2013 [id number] DRAINAGE OF LEFT PLEURA, PERCUTANEOUS AP 08/21/2017 [id number] DESTRUCTION OF LEFT PLEURA , OPEN APPROAC 08/22/2017 [id number] DRAINAGE OF LEFT PLEURA WITH DRAIN DEV, 08/22/2017 [id number] DRAINAGE OF LEFT PLEURA, PERC ENDO APPRO 08/22/2017 [id number] EXTIRPATION OF MATTER FROM LEFT PLEURA, 08/22/2017 Results Test Result Range Complete blood count (CBC) with automated white blood cell (WBC) differential - 08/20/17 15:50 Blood leukocytes automated count (number/volume) 6.2 10*3/uL 4.3-11.0 Blood erythrocytes automated count (number/volume) 4.23 10*6/uL 4.35-5.85 Venous blood hemoglobin measurement (mass/volume) 12.7 g/dL 11.5-16.0 Blood hematocrit (volume fraction) 37 % 35-52 Automated erythrocyte mean corpuscular volume 88 [foz_us] 80-99 Automated erythrocyte mean corpuscular hemoglobin (mass per erythrocyte) 30 pg 25-34 Automated erythrocyte mean corpuscular hemoglobin concentration measurement ( mass/volume) 34 g/dL 32-36 Automated erythrocyte distribution width ratio 14.9 % 10.0-14.5 Automated blood platelet count (count/volume) 88 10*3/uL 130-400 Automated blood platelet mean volume measurement 12.8 [foz_us] 7.4-10.4 Automated blood neutrophils/100 leukocytes 65 % 42-75 Automated blood lymphocytes/100 leukocytes 19 % 12-44 Blood monocytes/100 leukocytes 13 % 0-12 Automated blood eosinophils/100 leukocytes 3 % 0-10 Automated blood basophils/100 leukocytes 0 % 0-10 Blood neutrophils automated count (number/volume) 4.0 10*3 1.8-7.8 Blood lymphocytes automated count (number/volume) 1.2 10*3 1.0-4.0 Blood monocytes automated count (number/volume) 0.8 10*3 0.0-1.0 Automated eosinophil count 0.2 10*3/uL 0.0-0.3 Automated blood basophil count (count/volume) 0.0 10*3/uL 0.0-0.1 Blood lactic acid measurement (moles/volume) - 08/20/17 15:50 Blood lactic acid measurement (moles/volume) 0.88 mmol/L 0.50-2.00 Comprehensive metabolic panel - 08/20/17 15:50 Serum or plasma sodium measurement (moles/volume) 135 mmol/L 135-145 Serum or plasma potassium measurement (moles/volume) 3.6 mmol/L 3.6-5.0 Serum or plasma chloride measurement (moles/volume) 103 mmol/L 98-107 Carbon dioxide 25 mmol/L 21-32 Serum or plasma anion gap determination (moles/volume) 7 mmol/L 5-14 Serum or plasma urea nitrogen measurement (mass/volume) 10 mg/dL 7-18 Serum or plasma creatinine measurement (mass/volume) 0.70 mg/dL 0.60-1.30 Serum or plasma urea nitrogen/creatinine mass ratio 14 NRG Serum or plasma creatinine measurement with calculation of estimated glomerular filtration rate > NRG Serum or plasma glucose measurement (mass/volume) 86 mg/dL 70-105 Serum or plasma calcium measurement (mass/volume) 9.1 mg/dL 8.5-10.1 Serum or plasma total bilirubin measurement (mass/volume) 1.0 mg/dL 0.1-1.0 Serum or plasma alkaline phosphatase measurement (enzymatic activity/volume) 80 U/L 40-136 Serum or plasma aspartate aminotransferase measurement (enzymatic activity/ volume) 9 U/L 5-34 Serum or plasma alanine aminotransferase measurement (enzymatic activity/volume ) 9 U/L 0-55 Serum or plasma protein measurement (mass/volume) 7.1 g/dL 6.4-8.2 Serum or plasma albumin measurement (mass/volume) 3.6 g/dL 3.2-4.5 Serum or plasma lithium measurement (moles/volume) - 08/20/17 15:50 BNP level 19.6 pg/mL <100.0 Bacterial blood culture - 08/20/17 15:50 Bacterial blood culture NG NRG Bacterial blood culture - 08/20/17 16:00 Bacterial blood culture NG NRG Complete blood count (CBC) with automated white blood cell (WBC) differential - 08/21/17 05:54 Blood leukocytes automated count (number/volume) 5.6 10*3/uL 4.3-11.0 Blood erythrocytes automated count (number/volume) 3.79 10*6/uL 4.35-5.85 Venous blood hemoglobin measurement (mass/volume) 11.4 g/dL 11.5-16.0 Blood hematocrit (volume fraction) 34 % 35-52 Automated erythrocyte mean corpuscular volume 89 [foz_us] 80-99 Automated erythrocyte mean corpuscular hemoglobin (mass per erythrocyte) 30 pg 25-34 Automated erythrocyte mean corpuscular hemoglobin concentration measurement ( mass/volume) 34 g/dL 32-36 Automated erythrocyte distribution width ratio 15.0 % 10.0-14.5 Automated blood platelet count (count/volume) 84 10*3/uL 130-400 Automated blood platelet mean volume measurement 13.4 [foz_us] 7.4-10.4 Automated blood neutrophils/100 leukocytes 59 % 42-75 Automated blood lymphocytes/100 leukocytes 25 % 12-44 Blood monocytes/100 leukocytes 13 % 0-12 Automated blood eosinophils/100 leukocytes 3 % 0-10 Automated blood basophils/100 leukocytes 0 % 0-10 Blood neutrophils automated count (number/volume) 3.3 10*3 1.8-7.8 Blood lymphocytes automated count (number/volume) 1.4 10*3 1.0-4.0 Blood monocytes automated count (number/volume) 0.7 10*3 0.0-1.0 Automated eosinophil count 0.2 10*3/uL 0.0-0.3 Automated blood basophil count (count/volume) 0.0 10*3/uL 0.0-0.1 Whole blood basic metabolic panel - 08/21/17 05:54 Serum or plasma sodium measurement (moles/volume) 136 mmol/L 135-145 Serum or plasma potassium measurement (moles/volume) 3.5 mmol/L 3.6-5.0 Serum or plasma chloride measurement (moles/volume) 103 mmol/L 98-107 Carbon dioxide 23 mmol/L 21-32 Serum or plasma anion gap determination (moles/volume) 10 mmol/L 5-14 Serum or plasma urea nitrogen measurement (mass/volume) 12 mg/dL 7-18 Serum or plasma creatinine measurement (mass/volume) 0.71 mg/dL 0.60-1.30 Serum or plasma urea nitrogen/creatinine mass ratio 17 NRG Serum or plasma creatinine measurement with calculation of estimated glomerular filtration rate > NRG Serum or plasma glucose measurement (mass/volume) 88 mg/dL 70-105 Serum or plasma calcium measurement (mass/volume) 8.7 mg/dL 8.5-10.1 Methicillin resistant Staphylococcus aureus (MRSA) screening culture - 08:26 MRSA SCREEN RESULT MRSA NOT ISOLATED NRG Blood lactic acid measurement (moles/volume) - 08/21/17 11:55 Blood lactic acid measurement (moles/volume) 1.38 mmol/L 0.50-2.00 * PH of body fluid - 08/21/17 15:30 * PH of body fluid 7 NRG Gram stain microscopy - 08/21/17 15:30 GRAM STAIN RESULT FEW WBC'S, NO BACTERIA OBSERVED NRG Bacterial body fluid culture - 08/21/17 15:30 Bacterial body fluid culture NG NRG Methicillin resistant Staphylococcus aureus (MRSA) screening culture - 02:03 MRSA SCREEN RESULT MRSA NOT ISOLATED NRG Blood type T Indirect antibody screen panel - 08/22/17 06:35 ABO+Rh group ON NRG Transfusion band number [id number] NRG Blood group antibody screen NEGATIVE NRG Bacteria identification in isolate by anaerobe culture - 08/22/17 13:11 Bacteria identification in isolate by anaerobe culture NG NRG Gram stain microscopy - 08/22/17 13:11 GRAM STAIN RESULT FEW WBC'S, NO BACTERIA OBSERVED NRG Bacteria identification in wound by culture - 08/22/17 13:11 Bacteria identification in wound by culture NG NRG Vancomycin trough - 08/22/17 20:10 Vancomycin trough 8.2 ug/mL 10.0-20.0 Complete blood count (CBC) with automated white blood cell (WBC) differential - 08/23/17 03:25 Blood leukocytes automated count (number/volume) 4.8 10*3/uL 4.3-11.0 Blood erythrocytes automated count (number/volume) 3.75 10*6/uL 4.35-5.85 Venous blood hemoglobin measurement (mass/volume) 11.2 g/dL 11.5-16.0 Blood hematocrit (volume fraction) 33 % 35-52 Automated erythrocyte mean corpuscular volume 89 [foz_us] 80-99 Automated erythrocyte mean corpuscular hemoglobin (mass per erythrocyte) 30 pg 25-34 Automated erythrocyte mean corpuscular hemoglobin concentration measurement ( mass/volume) 34 g/dL 32-36 Automated erythrocyte distribution width ratio 14.5 % 10.0-14.5 Automated blood platelet count (count/volume) 90 10*3/uL 130-400 Automated blood platelet mean volume measurement 12.3 [foz_us] 7.4-10.4 Automated blood neutrophils/100 leukocytes 86 % 42-75 Automated blood lymphocytes/100 leukocytes 8 % 12-44 Blood monocytes/100 leukocytes 6 % 0-12 Automated blood eosinophils/100 leukocytes 0 % 0-10 Automated blood basophils/100 leukocytes 0 % 0-10 Blood neutrophils automated count (number/volume) 4.1 10*3 1.8-7.8 Blood lymphocytes automated count (number/volume) 0.4 10*3 1.0-4.0 Blood monocytes automated count (number/volume) 0.3 10*3 0.0-1.0 Automated eosinophil count 0.0 10*3/uL 0.0-0.3 Automated blood basophil count (count/volume) 0.0 10*3/uL 0.0-0.1 Whole blood basic metabolic panel - 08/23/17 03:25 Serum or plasma sodium measurement (moles/volume) 137 mmol/L 135-145 Serum or plasma potassium measurement (moles/volume) 4.5 mmol/L 3.6-5.0 Serum or plasma chloride measurement (moles/volume) 108 mmol/L 98-107 Carbon dioxide 21 mmol/L 21-32 Serum or plasma anion gap determination (moles/volume) 8 mmol/L 5-14 Serum or plasma urea nitrogen measurement (mass/volume) 10 mg/dL 7-18 Serum or plasma creatinine measurement (mass/volume) 0.62 mg/dL 0.60-1.30 Serum or plasma urea nitrogen/creatinine mass ratio 16 NRG Serum or plasma creatinine measurement with calculation of estimated glomerular filtration rate > NRG Serum or plasma glucose measurement (mass/volume) 120 mg/dL 70-105 Serum or plasma calcium measurement (mass/volume) 8.3 mg/dL 8.5-10.1 Serum or plasma phosphate measurement (mass/volume) - 08/23/17 03:25 Serum or plasma phosphate measurement (mass/volume) 3.0 mg/dL 2.3-4.7 Magnesium - 08/23/17 03:25 Magnesium 2.0 mg/dL 1.8-2.4 Complete blood count (CBC) with automated white blood cell (WBC) differential - 08/24/17 03:10 Blood leukocytes automated count (number/volume) 4.1 10*3/uL 4.3-11.0 Blood erythrocytes automated count (number/volume) 3.35 10*6/uL 4.35-5.85 Venous blood hemoglobin measurement (mass/volume) 10.0 g/dL 11.5-16.0 Blood hematocrit (volume fraction) 30 % 35-52 Automated erythrocyte mean corpuscular volume 90 [foz_us] 80-99 Automated erythrocyte mean corpuscular hemoglobin (mass per erythrocyte) 30 pg 25-34 Automated erythrocyte mean corpuscular hemoglobin concentration measurement ( mass/volume) 33 g/dL 32-36 Automated erythrocyte distribution width ratio 14.6 % 10.0-14.5 Automated blood platelet count (count/volume) 90 10*3/uL 130-400 Automated blood platelet mean volume measurement 12.3 [foz_us] 7.4-10.4 Automated blood neutrophils/100 leukocytes 59 % 42-75 Automated blood lymphocytes/100 leukocytes 28 % 12-44 Blood monocytes/100 leukocytes 12 % 0-12 Automated blood eosinophils/100 leukocytes 1 % 0-10 Automated blood basophils/100 leukocytes 0 % 0-10 Blood neutrophils automated count (number/volume) 2.4 10*3 1.8-7.8 Blood lymphocytes automated count (number/volume) 1.2 10*3 1.0-4.0 Blood monocytes automated count (number/volume) 0.5 10*3 0.0-1.0 Automated eosinophil count 0.0 10*3/uL 0.0-0.3 Automated blood basophil count (count/volume) 0.0 10*3/uL 0.0-0.1 Whole blood basic metabolic panel - 08/24/17 03:10 Serum or plasma sodium measurement (moles/volume) 139 mmol/L 135-145 Serum or plasma potassium measurement (moles/volume) 3.9 mmol/L 3.6-5.0 Serum or plasma chloride measurement (moles/volume) 109 mmol/L 98-107 Carbon dioxide 24 mmol/L 21-32 Serum or plasma anion gap determination (moles/volume) 6 mmol/L 5-14 Serum or plasma urea nitrogen measurement (mass/volume) 10 mg/dL 7-18 Serum or plasma creatinine measurement (mass/volume) 0.64 mg/dL 0.60-1.30 Serum or plasma urea nitrogen/creatinine mass ratio 16 NRG Serum or plasma creatinine measurement with calculation of estimated glomerular filtration rate > NRG Serum or plasma glucose measurement (mass/volume) 95 mg/dL 70-105 Serum or plasma calcium measurement (mass/volume) 7.9 mg/dL 8.5-10.1 Serum or plasma phosphate measurement (mass/volume) - 08/24/17 03:10 Serum or plasma phosphate measurement (mass/volume) 1.9 mg/dL 2.3-4.7 Magnesium - 08/24/17 03:10 Magnesium 1.9 mg/dL 1.8-2.4 Complete blood count (CBC) with automated white blood cell (WBC) differential - 08/25/17 03:25 Blood leukocytes automated count (number/volume) 2.7 10*3/uL 4.3-11.0 Blood erythrocytes automated count (number/volume) 3.32 10*6/uL 4.35-5.85 Venous blood hemoglobin measurement (mass/volume) 9.7 g/dL 11.5-16.0 Blood hematocrit (volume fraction) 30 % 35-52 Automated erythrocyte mean corpuscular volume 91 [foz_us] 80-99 Automated erythrocyte mean corpuscular hemoglobin (mass per erythrocyte) 29 pg 25-34 Automated erythrocyte mean corpuscular hemoglobin concentration measurement ( mass/volume) 32 g/dL 32-36 Automated erythrocyte distribution width ratio 14.9 % 10.0-14.5 Automated blood platelet count (count/volume) 86 10*3/uL 130-400 Automated blood platelet mean volume measurement 12.0 [foz_us] 7.4-10.4 Automated blood neutrophils/100 leukocytes 57 % 42-75 Automated blood lymphocytes/100 leukocytes 26 % 12-44 Blood monocytes/100 leukocytes 11 % 0-12 Automated blood eosinophils/100 leukocytes 6 % 0-10 Automated blood basophils/100 leukocytes 0 % 0-10 Blood neutrophils automated count (number/volume) 1.5 10*3 1.8-7.8 Blood lymphocytes automated count (number/volume) 0.7 10*3 1.0-4.0 Blood monocytes automated count (number/volume) 0.3 10*3 0.0-1.0 Automated eosinophil count 0.2 10*3/uL 0.0-0.3 Automated blood basophil count (count/volume) 0.0 10*3/uL 0.0-0.1 Whole blood basic metabolic panel - 08/25/17 03:25 Serum or plasma sodium measurement (moles/volume) 140 mmol/L 135-145 Serum or plasma potassium measurement (moles/volume) 3.7 mmol/L 3.6-5.0 Serum or plasma chloride measurement (moles/volume) 110 mmol/L 98-107 Carbon dioxide 23 mmol/L 21-32 Serum or plasma anion gap determination (moles/volume) 7 mmol/L 5-14 Serum or plasma urea nitrogen measurement (mass/volume) 11 mg/dL 7-18 Serum or plasma creatinine measurement (mass/volume) 0.65 mg/dL 0.60-1.30 Serum or plasma urea nitrogen/creatinine mass ratio 17 NRG Serum or plasma creatinine measurement with calculation of estimated glomerular filtration rate > NRG Serum or plasma glucose measurement (mass/volume) 86 mg/dL 70-105 Serum or plasma calcium measurement (mass/volume) 7.8 mg/dL 8.5-10.1 Serum or plasma phosphate measurement (mass/volume) - 08/25/17 03:25 Serum or plasma phosphate measurement (mass/volume) 2.5 mg/dL 2.3-4.7 Magnesium - 08/25/17 03:25 Magnesium 1.9 mg/dL 1.8-2.4 Occult blood panel - gastric fluid - 08/25/17 03:55 Gastric fluid gastrointestinal hemoglobin detection POSITIVE NEGATIVE Venous blood hemoglobin measurement (mass/volume) - 08/25/17 10:05 Venous blood hemoglobin measurement (mass/volume) 9.9 g/dL 11.5-16.0 Venous blood hemoglobin measurement (mass/volume) - 08/25/17 15:55 Venous blood hemoglobin measurement (mass/volume) 9.1 g/dL 11.5-16.0 Complete blood count (CBC) with automated white blood cell (WBC) differential - 08/26/17 03:25 Blood leukocytes automated count (number/volume) 2.3 10*3/uL 4.3-11.0 Blood erythrocytes automated count (number/volume) 3.12 10*6/uL 4.35-5.85 Venous blood hemoglobin measurement (mass/volume) 9.1 g/dL 11.5-16.0 Blood hematocrit (volume fraction) 28 % 35-52 Automated erythrocyte mean corpuscular volume 90 [[id number]] 80-99 Automated erythrocyte mean corpuscular hemoglobin (mass per erythrocyte) 29 pg 25-34 Automated erythrocyte mean corpuscular hemoglobin concentration measurement ( mass/volume) 32 g/dL 32-36 Automated erythrocyte distribution width ratio 14.5 % 10.0-14.5 Automated blood platelet count (count/volume) 71 10*3/uL 130-400 Automated blood platelet mean volume measurement 12.5 [foz_us] 7.4-10.4 Automated blood neutrophils/100 leukocytes 66 % 42-75 Automated blood lymphocytes/100 leukocytes 20 % 12-44 Blood monocytes/100 leukocytes 9 % 0-12 Automated blood eosinophils/100 leukocytes 5 % 0-10 Automated blood basophils/100 leukocytes 0 % 0-10 Blood neutrophils automated count (number/volume) 1.5 10*3 1.8-7.8 Blood lymphocytes automated count (number/volume) 0.5 10*3 1.0-4.0 Blood monocytes automated count (number/volume) 0.2 10*3 0.0-1.0 Automated eosinophil count 0.1 10*3/uL 0.0-0.3 Automated blood basophil count (count/volume) 0.0 10*3/uL 0.0-0.1 Whole blood basic metabolic panel - 08/26/17 03:25 Serum or plasma sodium measurement (moles/volume) 138 mmol/L 135-145 Serum or plasma potassium measurement (moles/volume) 3.6 mmol/L 3.6-5.0 Serum or plasma chloride measurement (moles/volume) 108 mmol/L 98-107 Carbon dioxide 26 mmol/L 21-32 Serum or plasma anion gap determination (moles/volume) 4 mmol/L 5-14 Serum or plasma urea nitrogen measurement (mass/volume) 8 mg/dL 7-18 Serum or plasma creatinine measurement (mass/volume) 0.60 mg/dL 0.60-1.30 Serum or plasma urea nitrogen/creatinine mass ratio 13 NRG Serum or plasma creatinine measurement with calculation of estimated glomerular filtration rate > NRG Serum or plasma glucose measurement (mass/volume) 89 mg/dL 70-105 Serum or plasma calcium measurement (mass/volume) 7.9 mg/dL 8.5-10.1 Serum or plasma phosphate measurement (mass/volume) - 08/26/17 03:25 Serum or plasma phosphate measurement (mass/volume) 2.0 mg/dL 2.3-4.7 Magnesium - 08/26/17 03:25 Magnesium 1.9 mg/dL 1.8-2.4 Complete blood count (CBC) with automated white blood cell (WBC) differential - 08/27/17 03:10 Blood leukocytes automated count (number/volume) 3.0 10*3/uL 4.3-11.0 Blood erythrocytes automated count (number/volume) 3.30 10*6/uL 4.35-5.85 Venous blood hemoglobin measurement (mass/volume) 9.8 g/dL 11.5-16.0 Blood hematocrit (volume fraction) 30 % 35-52 Automated erythrocyte mean corpuscular volume 89 [foz_us] 80-99 Automated erythrocyte mean corpuscular hemoglobin (mass per erythrocyte) 30 pg 25-34 Automated erythrocyte mean corpuscular hemoglobin concentration measurement ( mass/volume) 33 g/dL 32-36 Automated erythrocyte distribution width ratio 14.1 % 10.0-14.5 Automated blood platelet count (count/volume) 91 10*3/uL 130-400 Automated blood platelet mean volume measurement 11.9 [foz_us] 7.4-10.4 Automated blood neutrophils/100 leukocytes 59 % 42-75 Automated blood lymphocytes/100 leukocytes 25 % 12-44 Blood monocytes/100 leukocytes 9 % 0-12 Automated blood eosinophils/100 leukocytes 7 % 0-10 Automated blood basophils/100 leukocytes 1 % 0-10 Blood neutrophils automated count (number/volume) 1.7 10*3 1.8-7.8 Blood lymphocytes automated count (number/volume) 0.7 10*3 1.0-4.0 Blood monocytes automated count (number/volume) 0.3 10*3 0.0-1.0 Automated eosinophil count 0.2 10*3/uL 0.0-0.3 Automated blood basophil count (count/volume) 0.0 10*3/uL 0.0-0.1 Whole blood basic metabolic panel - 08/27/17 03:10 Serum or plasma sodium measurement (moles/volume) 140 mmol/L 135-145 Serum or plasma potassium measurement (moles/volume) 3.9 mmol/L 3.6-5.0 Serum or plasma chloride measurement (moles/volume) 108 mmol/L 98-107 Carbon dioxide 24 mmol/L 21-32 Serum or plasma anion gap determination (moles/volume) 8 mmol/L 5-14 Serum or plasma urea nitrogen measurement (mass/volume) 6 mg/dL 7-18 Serum or plasma creatinine measurement (mass/volume) 0.63 mg/dL 0.60-1.30 Serum or plasma urea nitrogen/creatinine mass ratio 10 NRG Serum or plasma creatinine measurement with calculation of estimated glomerular filtration rate > NRG Serum or plasma glucose measurement (mass/volume) 85 mg/dL 70-105 Serum or plasma calcium measurement (mass/volume) 8.2 mg/dL 8.5-10.1 Complete blood count (CBC) with automated white blood cell (WBC) differential - 08/28/17 05:05 Blood leukocytes automated count (number/volume) 2.5 10*3/uL 4.3-11.0 Blood erythrocytes automated count (number/volume) 3.26 10*6/uL 4.35-5.85 Venous blood hemoglobin measurement (mass/volume) 9.6 g/dL 11.5-16.0 Blood hematocrit (volume fraction) 29 % 35-52 Automated erythrocyte mean corpuscular volume 90 [foz_us] 80-99 Automated erythrocyte mean corpuscular hemoglobin (mass per erythrocyte) 29 pg 25-34 Automated erythrocyte mean corpuscular hemoglobin concentration measurement ( mass/volume) 33 g/dL 32-36 Automated erythrocyte distribution width ratio 14.4 % 10.0-14.5 Automated blood platelet count (count/volume) 82 10*3/uL 130-400 Automated blood platelet mean volume measurement 12.2 [foz_us] 7.4-10.4 Automated blood neutrophils/100 leukocytes 52 % 42-75 Automated blood lymphocytes/100 leukocytes 28 % 12-44 Blood monocytes/100 leukocytes 14 % 0-12 Automated blood eosinophils/100 leukocytes 6 % 0-10 Automated blood basophils/100 leukocytes 1 % 0-10 Blood neutrophils automated count (number/volume) 1.3 10*3 1.8-7.8 Blood lymphocytes automated count (number/volume) 0.7 10*3 1.0-4.0 Blood monocytes automated count (number/volume) 0.3 10*3 0.0-1.0 Automated eosinophil count 0.2 10*3/uL 0.0-0.3 Automated blood basophil count (count/volume) 0.0 10*3/uL 0.0-0.1 Whole blood basic metabolic panel - 08/28/17 05:05 Serum or plasma sodium measurement (moles/volume) 141 mmol/L 135-145 Serum or plasma potassium measurement (moles/volume) 3.6 mmol/L 3.6-5.0 Serum or plasma chloride measurement (moles/volume) 109 mmol/L 98-107 Carbon dioxide 26 mmol/L 21-32 Serum or plasma anion gap determination (moles/volume) 6 mmol/L 5-14 Serum or plasma urea nitrogen measurement (mass/volume) 4 mg/dL 7-18 Serum or plasma creatinine measurement (mass/volume) 0.56 mg/dL 0.60-1.30 Serum or plasma urea nitrogen/creatinine mass ratio 7 NRG Serum or plasma creatinine measurement with calculation of estimated glomerular filtration rate > NRG Serum or plasma glucose measurement (mass/volume) 90 mg/dL 70-105 Serum or plasma calcium measurement (mass/volume) 8.0 mg/dL 8.5-10.1 Blood CBC with ordered manual differential panel - 08/29/17 03:25 Blood leukocytes automated count (number/volume) 3.3 10*3/uL 4.3-11.0 Blood erythrocytes automated count (number/volume) 3.34 10*6/uL 4.35-5.85 Venous blood hemoglobin measurement (mass/volume) 9.7 g/dL 11.5-16.0 Blood hematocrit (volume fraction) 30 % 35-52 Automated erythrocyte mean corpuscular volume 89 [foz_us] 80-99 Automated erythrocyte mean corpuscular hemoglobin (mass per erythrocyte) 29 pg 25-34 Automated erythrocyte mean corpuscular hemoglobin concentration measurement ( mass/volume) 33 g/dL 32-36 Automated erythrocyte distribution width ratio 14.5 % 10.0-14.5 Automated blood platelet count (count/volume) 98 10*3/uL 130-400 Automated blood platelet mean volume measurement 12.4 [foz_us] 7.4-10.4 Automated blood neutrophils/100 leukocytes 51 % 42-75 Automated blood lymphocytes/100 leukocytes 29 % 12-44 Blood monocytes/100 leukocytes 7 % NRG Automated blood eosinophils/100 leukocytes 6 % 0-10 Automated blood basophils/100 leukocytes 1 % 0-10 Blood neutrophils automated count (number/volume) 1.7 10*3 1.8-7.8 Blood lymphocytes automated count (number/volume) 1.0 10*3 1.0-4.0 Blood monocytes automated count (number/volume) 0.4 10*3 0.0-1.0 Automated eosinophil count 0.2 10*3/uL 0.0-0.3 Automated blood basophil count (count/volume) 0.0 10*3/uL 0.0-0.1 Manual blood segmented neutrophils/100 leukocytes 54 % NRG Blood band neutrophils/100 leukocytes 2 % NRG Manual blood lymphocytes/100 leukocytes 34 % NRG Manual eosinophils/100 leukocytes in nose 3 % NRG Blood erythrocyte morphology finding identification [facility] Comprehensive metabolic panel - 08/29/17 03:25 Serum or plasma sodium measurement (moles/volume) 140 mmol/L 135-145 Serum or plasma potassium measurement (moles/volume) 3.5 mmol/L 3.6-5.0 Serum or plasma chloride measurement (moles/volume) 108 mmol/L 98-107 Carbon dioxide 25 mmol/L 21-32 Serum or plasma anion gap determination (moles/volume) 7 mmol/L 5-14 Serum or plasma urea nitrogen measurement (mass/volume) 4 mg/dL 7-18 Serum or plasma creatinine measurement (mass/volume) 0.64 mg/dL 0.60-1.30 Serum or plasma urea nitrogen/creatinine mass ratio 6 NRG Serum or plasma creatinine measurement with calculation of estimated glomerular filtration rate > NRG Serum or plasma glucose measurement (mass/volume) 99 mg/dL 70-105 Serum or plasma calcium measurement (mass/volume) 8.1 mg/dL 8.5-10.1 Serum or plasma total bilirubin measurement (mass/volume) 1.0 mg/dL 0.1-1.0 Serum or plasma alkaline phosphatase measurement (enzymatic activity/volume) 112 U/L 40-136 Serum or plasma aspartate aminotransferase measurement (enzymatic activity/ volume) 13 U/L 5-34 Serum or plasma alanine aminotransferase measurement (enzymatic activity/volume ) 9 U/L 0-55 Serum or plasma protein measurement (mass/volume) 5.5 g/dL 6.4-8.2 Serum or plasma albumin measurement (mass/volume) 2.7 g/dL 3.2-4.5 Lactate dehydrogenase 1 [enzymatic activity/volume] in serum or plasma - 03:25 Lactate dehydrogenase 1 [enzymatic activity/volume] in serum or plasma 197 U/L 125-220 Serum or plasma C reactive protein measurement (mass/volume) - 08/29/17 03:25 Serum or plasma C reactive protein measurement (mass/volume) 3.63 mg /dL 0.00-0.50 Erythrocyte sedimentation rate by westergren method - 08/29/17 03:25 Erythrocyte sedimentation rate by westergren method 59 mm 0-30 Complete blood count (CBC) with automated white blood cell (WBC) differential - 08/30/17 03:10 Blood leukocytes automated count (number/volume) 3.0 10*3/uL 4.3-11.0 Blood erythrocytes automated count (number/volume) 3.24 10*6/uL 4.35-5.85 Venous blood hemoglobin measurement (mass/volume) 9.4 g/dL 11.5-16.0 Blood hematocrit (volume fraction) 29 % 35-52 Automated erythrocyte mean corpuscular volume 88 [foz_us] 80-99 Automated erythrocyte mean corpuscular hemoglobin (mass per erythrocyte) 29 pg 25-34 Automated erythrocyte mean corpuscular hemoglobin concentration measurement ( mass/volume) 33 g/dL 32-36 Automated erythrocyte distribution width ratio 14.7 % 10.0-14.5 Automated blood platelet count (count/volume) 88 10*3/uL 130-400 Automated blood platelet mean volume measurement 12.2 [foz_us] 7.4-10.4 Automated blood neutrophils/100 leukocytes 49 % 42-75 Automated blood lymphocytes/100 leukocytes 30 % 12-44 Blood monocytes/100 leukocytes 16 % 0-12 Automated blood eosinophils/100 leukocytes 4 % 0-10 Automated blood basophils/100 leukocytes 1 % 0-10 Blood neutrophils automated count (number/volume) 1.5 10*3 1.8-7.8 Blood lymphocytes automated count (number/volume) 0.9 10*3 1.0-4.0 Blood monocytes automated count (number/volume) 0.5 10*3 0.0-1.0 Automated eosinophil count 0.1 10*3/uL 0.0-0.3 Automated blood basophil count (count/volume) 0.0 10*3/uL 0.0-0.1 Whole blood basic metabolic panel - 08/30/17 03:10 Serum or plasma sodium measurement (moles/volume) 138 mmol/L 135-145 Serum or plasma potassium measurement (moles/volume) 3.3 mmol/L 3.6-5.0 Serum or plasma chloride measurement (moles/volume) 108 mmol/L 98-107 Carbon dioxide 21 mmol/L 21-32 Serum or plasma anion gap determination (moles/volume) 9 mmol/L 5-14 Serum or plasma urea nitrogen measurement (mass/volume) 4 mg/dL 7-18 Serum or plasma creatinine measurement (mass/volume) 0.57 mg/dL 0.60-1.30 Serum or plasma urea nitrogen/creatinine mass ratio 7 NRG Serum or plasma creatinine measurement with calculation of estimated glomerular filtration rate > NRG Serum or plasma glucose measurement (mass/volume) 107 mg/dL 70-105 Serum or plasma calcium measurement (mass/volume) 7.9 mg/dL 8.5-10.1 Serum protein electrophoresis - 08/30/17 03:10 Serum or plasma protein measurement (mass/volume) 5.2 % 6.5-8.2 Pathology consultation and report SEE PATH REPORT NRG Serum or plasma lithium measurement (moles/volume) - 08/30/17 11:20 BNP level 89.0 pg/mL <100.0 Complete blood count (CBC) with automated white blood cell (WBC) differential - 09/06/17 14:35 Blood leukocytes automated count (number/volume) 3.2 10*3/uL 4.3-11.0 Blood erythrocytes automated count (number/volume) 3.56 10*6/uL 4.35-5.85 Venous blood hemoglobin measurement (mass/volume) 10.0 g/dL 11.5-16.0 Blood hematocrit (volume fraction) 32 % 35-52 Automated erythrocyte mean corpuscular volume 90 [foz_us] 80-99 Automated erythrocyte mean corpuscular hemoglobin (mass per erythrocyte) 28 pg 25-34 Automated erythrocyte mean corpuscular hemoglobin concentration measurement ( mass/volume) 31 g/dL 32-36 Automated erythrocyte distribution width ratio 15.5 % 10.0-14.5 Automated blood platelet count (count/volume) 131 10*3/uL 130-400 Automated blood platelet mean volume measurement 11.9 [foz_us] 7.4-10.4 Automated blood neutrophils/100 leukocytes 58 % 42-75 Automated blood lymphocytes/100 leukocytes 28 % 12-44 Blood monocytes/100 leukocytes 11 % 0-12 Automated blood eosinophils/100 leukocytes 4 % 0-10 Automated blood basophils/100 leukocytes 1 % 0-10 Blood neutrophils automated count (number/volume) 1.9 10*3 1.8-7.8 Blood lymphocytes automated count (number/volume) 0.9 10*3 1.0-4.0 Blood monocytes automated count (number/volume) 0.3 10*3 0.0-1.0 Automated eosinophil count 0.1 10*3/uL 0.0-0.3 Automated blood basophil count (count/volume) 0.0 10*3/uL 0.0-0.1 Comprehensive metabolic panel - 09/06/17 14:35 Serum or plasma sodium measurement (moles/volume) 137 mmol/L 135-145 Serum or plasma potassium measurement (moles/volume) 4.2 mmol/L 3.6-5.0 Serum or plasma chloride measurement (moles/volume) 104 mmol/L 98-107 Carbon dioxide 26 mmol/L 21-32 Serum or plasma anion gap determination (moles/volume) 7 mmol/L 5-14 Serum or plasma urea nitrogen measurement (mass/volume) 6 mg/dL 7-18 Serum or plasma creatinine measurement (mass/volume) 0.68 mg/dL 0.60-1.30 Serum or plasma urea nitrogen/creatinine mass ratio 9 NRG Serum or plasma creatinine measurement with calculation of estimated glomerular filtration rate > NRG Serum or plasma glucose measurement (mass/volume) 111 mg/dL 70-105 Serum or plasma calcium measurement (mass/volume) 9.0 mg/dL 8.5-10.1 Serum or plasma total bilirubin measurement (mass/volume) 0.7 mg/dL 0.1-1.0 Serum or plasma alkaline phosphatase measurement (enzymatic activity/volume) 127 U/L 40-136 Serum or plasma aspartate aminotransferase measurement (enzymatic activity/ volume) 16 U/L 5-34 Serum or plasma alanine aminotransferase measurement (enzymatic activity/volume ) 6 U/L 0-55 Serum or plasma protein measurement (mass/volume) 7.1 g/dL 6.4-8.2 Serum or plasma albumin measurement (mass/volume) 3.3 g/dL 3.2-4.5 Complete blood count (CBC) with automated white blood cell (WBC) differential - 09/12/17 14:27 Blood leukocytes automated count (number/volume) 3.4 10*3/uL 4.3-11.0 Blood erythrocytes automated count (number/volume) 3.75 10*6/uL 4.35-5.85 Venous blood hemoglobin measurement (mass/volume) 10.6 g/dL 11.5-16.0 Blood hematocrit (volume fraction) 34 % 35-52 Automated erythrocyte mean corpuscular volume 89 [foz_us] 80-99 Automated erythrocyte mean corpuscular hemoglobin (mass per erythrocyte) 28 pg 25-34 Automated erythrocyte mean corpuscular hemoglobin concentration measurement ( mass/volume) 32 g/dL 32-36 Automated erythrocyte distribution width ratio 16.0 % 10.0-14.5 Automated blood platelet count (count/volume) 127 10*3/uL 130-400 Automated blood platelet mean volume measurement 11.8 [foz_us] 7.4-10.4 Automated blood neutrophils/100 leukocytes 46 % 42-75 Automated blood lymphocytes/100 leukocytes 36 % 12-44 Blood monocytes/100 leukocytes 14 % 0-12 Automated blood eosinophils/100 leukocytes 4 % 0-10 Automated blood basophils/100 leukocytes 1 % 0-10 Blood neutrophils automated count (number/volume) 1.6 10*3 1.8-7.8 Blood lymphocytes automated count (number/volume) 1.2 10*3 1.0-4.0 Blood monocytes automated count (number/volume) 0.5 10*3 0.0-1.0 Automated eosinophil count 0.1 10*3/uL 0.0-0.3 Automated blood basophil count (count/volume) 0.0 10*3/uL 0.0-0.1 Comprehensive metabolic panel - 09/12/17 14:27 Serum or plasma sodium measurement (moles/volume) 139 mmol/L 135-145 Serum or plasma potassium measurement (moles/volume) 4.2 mmol/L 3.6-5.0 Serum or plasma chloride measurement (moles/volume) 107 mmol/L 98-107 Carbon dioxide 24 mmol/L 21-32 Serum or plasma anion gap determination (moles/volume) 8 mmol/L 5-14 Serum or plasma urea nitrogen measurement (mass/volume) 9 mg/dL 7-18 Serum or plasma creatinine measurement (mass/volume) 0.74 mg/dL 0.60-1.30 Serum or plasma urea nitrogen/creatinine mass ratio 12 NRG Serum or plasma creatinine measurement with calculation of estimated glomerular filtration rate > NRG Serum or plasma glucose measurement (mass/volume) 102 mg/dL 70-105 Serum or plasma calcium measurement (mass/volume) 9.2 mg/dL 8.5-10.1 Serum or plasma total bilirubin measurement (mass/volume) 0.6 mg/dL 0.1-1.0 Serum or plasma alkaline phosphatase measurement (enzymatic activity/volume) 123 U/L 40-136 Serum or plasma aspartate aminotransferase measurement (enzymatic activity/ volume) 19 U/L 5-34 Serum or plasma alanine aminotransferase measurement (enzymatic activity/volume ) < U/L 0-55 Serum or plasma protein measurement (mass/volume) 7.6 g/dL 6.4-8.2 Serum or plasma albumin measurement (mass/volume) 3.6 g/dL 3.2-4.5 Comprehensive metabolic panel - 09/20/17 15:35 Serum or plasma sodium measurement (moles/volume) 140 mmol/L 135-145 Serum or plasma potassium measurement (moles/volume) 4.1 mmol/L 3.6-5.0 Serum or plasma chloride measurement (moles/volume) 104 mmol/L 98-107 Carbon dioxide 27 mmol/L 21-32 Serum or plasma anion gap determination (moles/volume) 9 mmol/L 5-14 Serum or plasma urea nitrogen measurement (mass/volume) 11 mg/dL 7-18 Serum or plasma creatinine measurement (mass/volume) 0.75 mg/dL 0.60-1.30 Serum or plasma urea nitrogen/creatinine mass ratio 15 NRG Serum or plasma creatinine measurement with calculation of estimated glomerular filtration rate > NRG Serum or plasma glucose measurement (mass/volume) 114 mg/dL 70-105 Serum or plasma calcium measurement (mass/volume) 9.9 mg/dL 8.5-10.1 Serum or plasma total bilirubin measurement (mass/volume) 0.8 mg/dL 0.1-1.0 Serum or plasma alkaline phosphatase measurement (enzymatic activity/volume) 101 U/L 40-136 Serum or plasma aspartate aminotransferase measurement (enzymatic activity/ volume) 25 U/L 5-34 Serum or plasma alanine aminotransferase measurement (enzymatic activity/volume ) 7 U/L 0-55 Serum or plasma protein measurement (mass/volume) 8.2 g/dL 6.4-8.2 Serum or plasma albumin measurement (mass/volume) 4.0 g/dL 3.2-4.5 Complete blood count (CBC) with automated white blood cell (WBC) differential - 09/20/17 15:35 Blood leukocytes automated count (number/volume) 3.5 10*3/uL 4.3-11.0 Blood erythrocytes automated count (number/volume) 4.05 10*6/uL 4.35-5.85 Venous blood hemoglobin measurement (mass/volume) 11.4 g/dL 11.5-16.0 Blood hematocrit (volume fraction) 36 % 35-52 Automated erythrocyte mean corpuscular volume 89 [foz_us] 80-99 Automated erythrocyte mean corpuscular hemoglobin (mass per erythrocyte) 28 pg 25-34 Automated erythrocyte mean corpuscular hemoglobin concentration measurement ( mass/volume) 32 g/dL 32-36 Automated erythrocyte distribution width ratio 15.8 % 10.0-14.5 Automated blood platelet count (count/volume) 106 10*3/uL 130-400 Automated blood platelet mean volume measurement 11.4 [foz_us] 7.4-10.4 Automated blood neutrophils/100 leukocytes 47 % 42-75 Automated blood lymphocytes/100 leukocytes 32 % 12-44 Blood monocytes/100 leukocytes 16 % 0-12 Automated blood eosinophils/100 leukocytes 4 % 0-10 Automated blood basophils/100 leukocytes 1 % 0-10 Blood neutrophils automated count (number/volume) 1.7 10*3 1.8-7.8 Blood lymphocytes automated count (number/volume) 1.1 10*3 1.0-4.0 Blood monocytes automated count (number/volume) 0.6 10*3 0.0-1.0 Automated eosinophil count 0.1 10*3/uL 0.0-0.3 Automated blood basophil count (count/volume) 0.0 10*3/uL 0.0-0.1 Complete urinalysis with reflex to culture - 10/05/17 16:30 Urine color determination YELLOW NRG Urine clarity determination CLEAR NRG Urine pH measurement by test strip 6 5-9 Specific gravity of urine by test strip 1.025 1.016- 1.022 Urine protein assay by test strip, semi-quantitative 1+ NEGATIVE Urine glucose detection by automated test strip NEGATIVE NEGATIVE Erythrocytes detection in urine sediment by light microscopy NEGATIVE NEGATIVE Urine ketones detection by automated test strip NEGATIVE NEGATIVE Urine nitrite detection by test strip NEGATIVE NEGATIVE Urine total bilirubin detection by test strip NEGATIVE NEGATIVE Urine urobilinogen measurement by automated test strip (mass/volume) 1 mg/dL NORMAL Urine leukocyte esterase detection by dipstick 2+ NEGATIVE Automated urine sediment erythrocyte count by microscopy (number/high power field) RARE NRG Automated urine sediment leukocyte count by microscopy (number/high power field ) [HPF] NRG Bacteria detection in urine sediment by light microscopy NEGATIVE NRG Squamous epithelial cells detection in urine sediment by light microscopy RARE NRG Crystals detection in urine sediment by light microscopy NONE NRG Casts detection in urine sediment by light microscopy NONE NRG Mucus detection in urine sediment by light microscopy SMALL NRG Complete urinalysis with reflex to culture NO NRG Complete blood count (CBC) with automated white blood cell (WBC) differential - 10/05/17 16:37 Blood leukocytes automated count (number/volume) 3.6 10*3/uL 4.3-11.0 Blood erythrocytes automated count (number/volume) 4.05 10*6/uL 4.35-5.85 Venous blood hemoglobin measurement (mass/volume) 11.7 g/dL 11.5-16.0 Blood hematocrit (volume fraction) 35 % 35-52 Automated erythrocyte mean corpuscular volume 87 [foz_us] 80-99 Automated erythrocyte mean corpuscular hemoglobin (mass per erythrocyte) 29 pg 25-34 Automated erythrocyte mean corpuscular hemoglobin concentration measurement ( mass/volume) 33 g/dL 32-36 Automated erythrocyte distribution width ratio 15.1 % 10.0-14.5 Automated blood platelet count (count/volume) 102 10*3/uL 130-400 Automated blood platelet mean volume measurement 12.0 [foz_us] 7.4-10.4 Automated blood neutrophils/100 leukocytes 46 % 42-75 Automated blood lymphocytes/100 leukocytes 37 % 12-44 Blood monocytes/100 leukocytes 13 % 0-12 Automated blood eosinophils/100 leukocytes 3 % 0-10 Automated blood basophils/100 leukocytes 1 % 0-10 Blood neutrophils automated count (number/volume) 1.7 10*3 1.8-7.8 Blood lymphocytes automated count (number/volume) 1.3 10*3 1.0-4.0 Blood monocytes automated count (number/volume) 0.5 10*3 0.0-1.0 Automated eosinophil count 0.1 10*3/uL 0.0-0.3 Automated blood basophil count (count/volume) 0.0 10*3/uL 0.0-0.1 Comprehensive metabolic panel - 10/05/17 16:37 Serum or plasma sodium measurement (moles/volume) 138 mmol/L 135-145 Serum or plasma potassium measurement (moles/volume) 3.9 mmol/L 3.6-5.0 Serum or plasma chloride measurement (moles/volume) 104 mmol/L 98-107 Carbon dioxide 25 mmol/L 21-32 Serum or plasma anion gap determination (moles/volume) 9 mmol/L 5-14 Serum or plasma urea nitrogen measurement (mass/volume) 9 mg/dL 7-18 Serum or plasma creatinine measurement (mass/volume) 0.67 mg/dL 0.60-1.30 Serum or plasma urea nitrogen/creatinine mass ratio 13 NRG Serum or plasma creatinine measurement with calculation of estimated glomerular filtration rate > NRG Serum or plasma glucose measurement (mass/volume) 97 mg/dL 70-105 Serum or plasma calcium measurement (mass/volume) 9.6 mg/dL 8.5-10.1 Serum or plasma total bilirubin measurement (mass/volume) 0.6 mg/dL 0.1-1.0 Serum or plasma alkaline phosphatase measurement (enzymatic activity/volume) 112 U/L 40-136 Serum or plasma aspartate aminotransferase measurement (enzymatic activity/ volume) 13 U/L 5-34 Serum or plasma alanine aminotransferase measurement (enzymatic activity/volume ) 6 U/L 0-55 Serum or plasma protein measurement (mass/volume) 7.6 g/dL 6.4-8.2 Serum or plasma albumin measurement (mass/volume) 3.9 g/dL 3.2-4.5 Encounters ACCT No. Visit Date/Time Discharge Status Pt. Type Provider Facility Loc./Unit Complaint [id number] 08/14/2014 15:58:00 08/14/2014 23:59:59 [facility] Outpatient YVETTE GOODMAN DO [id number] 12/01/2013 10:07:00 12/01/2013 23:59:59 [facility] Outpatient YVETTE GOODMAN DO [id number] 11/19/2013 08:16:00 11/19/2013 23:59:59 [facility] Outpatient YVETTE GOODMAN DO [id number] 04/09/2013 15:49:00 04/09/2013 23:59:59 [facility] Outpatient YVETTE GOODMAN DO [id number] 01/10/2013 09:07:00 Document Registration [id number] 11/04/2012 14:31:00 Document Registration [id number] 12/06/2017 00:11:00 12/06/2017 23:59:59 CLS Preadmit DARCY MORAN DO [facility] LAB E87.6 E87.1 [id number] 09/20/2017 15:28:00 12/05/2017 00:01:00 DIS Outpatient LUISA MIRELES DARCY [facility] LAB E87.6 E87.1 [id number] 12/03/2017 12:28:00 12/03/2017 23:59:59 CLS Outpatient CHETAN STAHL Nancie [facility] ONC [id number] 10/05/2017 15:45:00 10/05/2017 18:52:00 DIS Emergency CHARU GALVEZ, MONIKA Nice [facility] ER BACK PAIN/SOB [id number] 08/22/2017 09:49:00 08/30/2017 17:00:00 DIS Inpatient MARGARITO GALVEZ, SOPHIA Sharma [facility] 4TH LEFT UPPER LOBE PNEUMONIA W/HYPOXIA [id number] 11/23/2015 12:09:00 11/23/2015 23:59:59 CLS Outpatient ADALBERTO GALVEZ, NEFTALI Heart [facility] LAB HYPERTENSION [id number] 11/18/2015 16:35:00 11/18/2015 23:59:59 CLS Outpatient DARCY MORAN DO [facility] LAB PLATELET CLUMPY [id number] 05/07/2017 15:00:00 05/07/2017 23:59:59 CLS Outpatient ERICA HOWE APRN [place]
== END 2017-12-21 11:45 | disposition home or self-care (01) ==
LOC: SDC 07:45 → EDSTATUS 09:15 → RAD 11:45 → SDC 11:45
PROVIDERS: ATTEND Internal Medicine Hematology & Oncology
DX: D61.818 Other pancytopenia (principal); Z87.891 Personal history of nicotine dependence
CPT/HCPCS: 36415; 38222; 77012; 85007; 85025; 85027; 85045; 85610; 85730; 99156; 99157

== ENCOUNTER 2018-01-03 14:44 | Outpatient (RCR) | payer BC ==
[~2018-01-03 14:44] MED LIST changes: -OXYC-202 PO; +OXYC1TAB12 PO
== END 2018-01-18 | disposition home or self-care (01) ==
LOC: ONC 14:44
PROVIDERS: ATTEND Internal Medicine Hematology & Oncology
DX: D61.818 Other pancytopenia (principal); Z87.891 Personal history of nicotine dependence; Z99.81 Dependence on supplemental oxygen
CPT/HCPCS: 99213

== ENCOUNTER → 2018-02-01 | Outpatient (CLI) | payer BC ==
[2018-02-01 13:04] LABS: BASOPHILS % (AUTO) 1 % (0-10); EOSINOPHILS # (AUTO) 0.1 10^3/uL (0.0-0.3); EOSINOPHILS % (AUTO) 2 % (0-10); HEMATOCRIT 39 % (35-52); LYMPHOCYTES # (AUTO) 1.2 X 10^3 (1.0-4.0); LYMPHOCYTES % (AUTO) 32 % (12-44); MEAN CORPUSCULAR HEMOGLOBIN 30 PG (25-34); MEAN CORPUSCULAR HGB CONC 34 G/DL (32-36); MEAN CORPUSCULAR VOLUME 88 FL (80-99); MEAN PLATELET VOLUME 12.3 FL (7.4-10.4); MONOCYTES # (AUTO) 0.5 X 10^3 (0.0-1.0); MONOCYTES % (AUTO) 14 % (0-12); NEUTROPHILS % (AUTO) 52 % (42-75); PLATELET COUNT 82 10^3/uL (130-400); RED BLOOD COUNT 4.38 10^6/uL (4.35-5.85); WHITE BLOOD COUNT 3.8 10^3/uL (4.3-11.0)
--- NOTE | 2018-02-01 13:15 | Diagnostic Imaging Report ---
INDICATION: Cough and difficulty breathing. TIME OF EXAM: 01:29 p.m. Correlation is made with prior chest radiograph from 10/05/2017. FINDINGS: The heart size is stable. Calcified granuloma in the right lower lobe is seen. There is minimal increased density in the right base which in large part is likely vascular. The possibility of some minimal underlying infiltrate cannot be entirely excluded. The left lung is clear. No effusion or pneumothorax is seen. IMPRESSION: Questionable minimal right basilar infiltrate or atelectasis. The study is otherwise unremarkable. Dictated by: Dictated on workstation # [id number]
[2018-02-01 13:23] LABS: ALANINE AMINOTRANSFERASE 8 U/L (0-55); ALKALINE PHOSPHATASE 81 U/L (40-136); BILIRUBIN,TOTAL 0.8 MG/DL (0.1-1.0); BUN/CREATININE RATIO 12; CALCIUM 9.4 MG/DL (8.5-10.1); CARBON DIOXIDE 23 MMOL/L (21-32); CHLORIDE 106 MMOL/L (98-107); CREATININE SERUM 0.73 MG/DL (0.60-1.30); GFR ESTIMATED > 60; GLUCOSE 94 MG/DL (70-105); SODIUM 138 MMOL/L (135-145); TOTAL PROTEIN 7.5 GM/DL (6.4-8.2)
== END ==
LOC: RAD 12:47
PROVIDERS: ATTEND Nurse Practitioner Family
DX: R05 Cough (principal); R06.00 Dyspnea, unspecified
CPT/HCPCS: 36415; 71046; 80053; 85025

== ENCOUNTER 2018-10-01 14:38 | Outpatient (RCR) | payer BC ==
[2018-10-01 15:09] LABS: BASOPHILS % (AUTO) 1 % (0-10); EOSINOPHILS # (AUTO) 0.1 10^3/uL (0.0-0.3); EOSINOPHILS % (AUTO) 3 % (0-10); HEMATOCRIT 37 % (35-52); HEMOGLOBIN 12.3 G/DL (11.5-16.0); LYMPHOCYTES # (AUTO) 1.4 X 10^3 (1.0-4.0); LYMPHOCYTES % (AUTO) 33 % (12-44); MEAN CORPUSCULAR HEMOGLOBIN 29 PG (25-34); MEAN CORPUSCULAR HGB CONC 33 G/DL (32-36); MEAN CORPUSCULAR VOLUME 89 FL (80-99); MEAN PLATELET VOLUME 13.2 FL (7.4-10.4); MONOCYTES # (AUTO) 0.6 X 10^3 (0.0-1.0); MONOCYTES % (AUTO) 15 % (0-12); NEUTROPHILS % (AUTO) 48 % (42-75); PLATELET COUNT 90 10^3/uL (130-400); RED CELL DISTRIBUTION WIDTH 15.4 % (10.0-14.5); WHITE BLOOD COUNT 4.1 10^3/uL (4.3-11.0)
[2018-10-01 15:29] LABS: ALANINE AMINOTRANSFERASE 10 U/L (0-55); ALBUMIN 4.1 GM/DL (3.2-4.5); ALKALINE PHOSPHATASE 92 U/L (40-136); BILIRUBIN,TOTAL 0.5 MG/DL (0.1-1.0); BUN/CREATININE RATIO 13; CALCIUM 9.5 MG/DL (8.5-10.1); CARBON DIOXIDE 28 MMOL/L (21-32); CHLORIDE 104 MMOL/L (98-107); CREATININE SERUM 0.78 MG/DL (0.60-1.30); GFR ESTIMATED > 60; GLUCOSE 113 MG/DL (70-105); POTASSIUM 4.1 MMOL/L (3.6-5.0); SODIUM 141 MMOL/L (135-145)
== END 2018-12-30 | disposition home or self-care (01) ==
LOC: ONC 14:38
PROVIDERS: ATTEND Internal Medicine Hematology & Oncology
DX: D61.818 Other pancytopenia (principal); Z87.891 Personal history of nicotine dependence; Z99.81 Dependence on supplemental oxygen
CPT/HCPCS: 36415; 80053; 83615; 85025; 99213

== ENCOUNTER → 2020-01-29 | Outpatient (CLI) | payer BC ==
[~2020-01-29] MED LIST changes: +ACHYD1T PO; -HYDR-3820 PO; +OMEP40CA27 PO; -OMEP40CA36 PO
[2020-01-29 10:34] LABS: BASOPHILS % (AUTO) 1 % (0-10); EOSINOPHILS # (AUTO) 0.1 10^3/uL (0.0-0.3); EOSINOPHILS % (AUTO) 2 % (0-10); HEMATOCRIT 39 % (35-52); HEMOGLOBIN 12.9 G/DL (11.5-16.0); LYMPHOCYTES # (AUTO) 1.1 X 10^3 (1.0-4.0); LYMPHOCYTES % (AUTO) 32 % (12-44); MEAN CORPUSCULAR HEMOGLOBIN 30 PG (25-34); MEAN CORPUSCULAR HGB CONC 33 G/DL (32-36); MEAN CORPUSCULAR VOLUME 90 FL (80-99); MONOCYTES # (AUTO) 0.5 X 10^3 (0.0-1.0); MONOCYTES % (AUTO) 13 % (0-12); NEUTROPHILS # (AUTO) 1.9 X 10^3 (1.8-7.8); NEUTROPHILS % (AUTO) 53 % (42-75); PLATELET COUNT 70 10^3/uL (130-400); WHITE BLOOD COUNT 3.6 10^3/uL (4.3-11.0)
[2020-01-29 10:56] LABS: ALANINE AMINOTRANSFERASE 8 U/L (0-55); ALBUMIN 4.1 GM/DL (3.2-4.5); ALKALINE PHOSPHATASE 57 U/L (40-136); BILIRUBIN,TOTAL 0.6 MG/DL (0.1-1.0); BUN/CREATININE RATIO 16; CALCIUM 9.3 MG/DL (8.5-10.1); CARBON DIOXIDE 28 MMOL/L (21-32); CHLORIDE 105 MMOL/L (98-107); CHOLESTEROL 192 MG/DL (< 200); CREATININE SERUM 0.82 MG/DL (0.60-1.30); GFR ESTIMATED > 60; GLUCOSE 142 MG/DL (70-105); HDL CHOLESTEROL 31 MG/DL (40-60); SODIUM 139 MMOL/L (135-145); TOTAL PROTEIN 7.7 GM/DL (6.4-8.2); TRIGLYCERIDES 229 MG/DL (<150); VLDL CHOLESTEROL 46 MG/DL (5-40)
[2020-01-29 11:16] LABS: FREE T4 (FREE THYROXINE) 0.77 NG/DL (0.70-1.48)
== END ==
LOC: LAB 10:07
PROVIDERS: ATTEND Internal Medicine
DX: R73.9 Hyperglycemia, unspecified (principal); E04.1 Nontoxic single thyroid nodule; I10 Essential (primary) hypertension; Z13.6 Encounter for screening for cardiovascular disorders
CPT/HCPCS: 36415; 80053; 80061; 83036; 84439; 84443; 85025